=== PATIENT | female | born 1940 | race African-American/Black ===

== ENCOUNTER 2020-01-12 13:23 | Inpatient (IN) | payer MEDICARE, OTHER ==
[~2020-01-12] VITALS: Ht 167.6 cm; Wt 55.8 kg
[2020-01-12 13:25] VITALS: BP 180/100
--- NOTE | 2020-01-12 13:25 | NUR ---
ED Nurse Note: Pt brought in from independent living facility by [facility] due to ALOC. Per EMS, pt was found by her provider relations manager sitting down on the floor with her back resting on a chair.
--- NOTE | 2020-01-12 13:40 | NUR ---
ED Nurse Note: PT blood sample sent to [facility]
--- NOTE | 2020-01-12 13:50 | NUR ---
ED Nurse Note: pt taken to CT
[2020-01-12 14:00] LABS: HEMATOCRIT 37.6 % (37.0-47.0); HEMOGLOBIN 13.2 G/DL (12.0-16.0); MEAN CORPUSCULAR VOLUME 92 FL (80-99); PLATELET COUNT 171 K/UL (150-450); RED BLOOD COUNT 4.08 M/UL (4.20-5.40); RED CELL DISTRIBUTION WIDTH 13.9 % (11.6-14.8); WHITE BLOOD COUNT 9.3 K/UL (4.8-10.8)
--- NOTE | 2020-01-12 14:01 | NUR ---
ED Nurse Note: back from ct
--- NOTE | 2020-01-12 14:07 | Diagnostic Imaging Report ---
EXAM: XR Chest, 1 View CLINICAL HISTORY: PAIN TECHNIQUE: Frontal view of the chest. COMPARISON: No relevant prior studies available. FINDINGS: Lungs: Unremarkable. No consolidation. Pleural space: Unremarkable. No pneumothorax. Heart: Unremarkable. No cardiomegaly. Mediastinum: Calcified and tortuous aorta. Bones/joints: Osteopenia. Degenerative changes. High riding humeral head suggesting rotator cuff tears. IMPRESSION: No evidence of acute pulmonary disease. High riding humeral heads with remodeling. Suspect rotator cuff tears.
[2020-01-12 14:11] LABS: ANION GAP 16 mmol/L (5-15); BLOOD UREA NITROGEN 33 mg/dL (7-18); CALCIUM 10.1 MG/DL (8.5-10.1); CARBON DIOXIDE 25 MMOL/L (21-32); CHLORIDE 101 MMOL/L (98-107); CREATININE 1.5 MG/DL (0.55-1.30); SODIUM 142 MMOL/L (136-145)
--- NOTE | 2020-01-12 14:13 | Diagnostic Imaging Report ---
EXAM: CT Head Without Intravenous Contrast CLINICAL HISTORY: ALOC TECHNIQUE: Axial computed tomography images of the head/brain without intravenous contrast. CTDI is 53.4 mGy and DLP is 992.1 mGy-cm. One or more of the following dose reduction techniques were used: automated exposure control, adjustment of the mA and/or kV according to patient size, use of iterative reconstruction technique. COMPARISON: No relevant prior studies available. FINDINGS: No acute intracranial hemorrhage. Chronic dural thickening and calcification along the left cerebral convexity adjacent to a craniotomy defect. This type of thickening/scarring is common in the postoperative setting. No significant mass effect. No clear acute large vessel territory infarct. There is diffuse atrophy and microvascular ischemic change. Atherosclerosis of skull base arteries. Right ocular lens prosthesis. No acute fracture. IMPRESSION: No acute intracranial process. Left craniotomy with subjacent dural thickening and calcification, a frequently encountered postoperative finding. No significant mass effect. Diffuse atrophy and microvascular ischemic changes.
[2020-01-12 14:37] LABS: ALANINE AMINOTRANSFERASE 15 U/L (12-78); ALBUMIN 3.8 G/DL (3.4-5.0); ALBUMIN/GLOBULIN RATIO 0.7 (1.0-2.7); ALKALINE PHOSPHATASE 73 U/L (46-116); ASPARTATE AMINO TRANSFERASE 24 U/L (15-37); BILIRUBIN,TOTAL 1.2 MG/DL (0.2-1.0); CKMB 1.4 NG/ML (0.0-3.6); CREATINE KINASE 344 U/L (26-308)
[2020-01-12 14:38] LABS: BILIRUBIN,DIRECT 0.4 MG/DL (0.0-0.3)
[2020-01-12] MEDS ORDERED: Omnipaque 350 100ml vial INJ PRN (14:45)
[2020-01-12] MEDS ORDERED: LISINOPRIL20 MG ORAL (15:27)
[2020-01-12 15:44] LABS: APPEARANCE,URINE SLIGHTLY CLOUDY; BILIRUBIN, URINE NEGATIVE (NEGATIVE); COLOR,URINE AMBER; GLUCOSE, URINE (UA) NEGATIVE (NEGATIVE); KETONES,URINE 1+ (NEGATIVE); LEUKOCYTE ESTERASE ,URINE 3+ (NEGATIVE); NITRITE,URINE NEGATIVE (NEGATIVE); PH,URINE 5 (4.5-8.0); PROTEIN,URINE 3+ (NEGATIVE); UROBILINOGEN,URINE NORMAL MG/DL (0.0-1.0)
[2020-01-12] MEDS ORDERED: Enoxaparin 80mg Inj SUBQ ONE (15:45)
--- NOTE | 2020-01-12 15:53 | Diagnostic Imaging Report ---
EXAM: CT Chest Without Intravenous Contrast CLINICAL HISTORY: SOB TECHNIQUE: Axial computed tomography images of the chest without intravenous contrast. CTDI is 4.1 mGy and DLP is 131.2 mGy-cm. One or more of the following dose reduction techniques were used: automated exposure control, adjustment of the mA and/or kV according to patient size, use of iterative reconstruction technique. COMPARISON: No relevant prior studies available. FINDINGS: Centrilobular emphysema, most pronounced to the upper lobes. Mild basilar scarring and/or subsegmental atelectasis. Extensive aortic and coronary atherosclerosis. Trace pericardial fluid of doubtful clinical relevance. No significant pleural effusion. No pneumothorax. Upper abdomen demonstrates a 3.3 cm left lobe hepatic cyst. Spleen appears enlarged, but is not fully assessed. No definite splenic lesion on noncontrast study. Renal atrophy. Advanced degeneration and remodeling of the glenohumeral joints. Suspected rotator cuff pathology. Thoracic kyphosis. No acute fracture. IMPRESSION: Emphysema. No acute pulmonary infiltrate. Extensive aortic and coronary atherosclerosis. Incidental findings as above.
[2020-01-12] MEDS ORDERED: cefTRIAXone 1 GM in NS 55 ML IVPB ONE (16:00)
--- NOTE | 2020-01-12 16:01 | Emergency Room Report ---
History of Present Illness General Chief Complaint: Altered Level of Consciousness Present Illness HPI 79-year-old female with possible history of CHF and AK I brought in by paramedics from an assisted living due to altered level of consciousness. According to [facility] report patient was found sitting down leaning against the wall and being altered. Does not present with a summary report of medication and past medical illnesses. Unknown baseline for her dementia. Patient appears to be stable with stable vital signs. Afebrile and oxygenation within normal limit. No cough noted. Patient is a poor historian however reports that at times she has been short of breath. Patient elicits a lot of pain to gentle palpation of bilateral lower extremities. Bilateral lower extremities appear to be chronically tightened possible chronic DVT. Denies abdominal pain , nausea vomiting diarrhea. Patient is neurovascularly intact. No generalized or unilateral weakness noted. Patient speaking full sentences and no slurred speech noted. Head appears to be atraumatic (Raffaele Rajan) Allergies: Coded Allergies: PENICILLINS (Verified Allergy, Unknown, 01/12/20) COVID-19 Screening Contact w/high risk pt: No Recent Travel to affected area: No Experienced COVID-19 symptoms?: No (Raffaele Rajan) Patient History Past Medical History: see triage record Past Surgical History: unable to obtain Pertinent Family History: unable to obtain Immunizations: UTD Reviewed Nursing Documentation: PMH: Agreed; PSxH: Agreed (Raffaele Rajan) Review of Systems All Other Systems: negative except mentioned in HPI (Raffaele Rajan) Physical Exam Vital Signs Date Time Temp Pulse Resp B/P (MAP) Pulse Ox O2 Delivery O2 Flow Rate FiO2 01/12/20 13:17 98.4 104 16 184/95 (124) 100 Room Air Sp02 EP Interpretation: reviewed, normal General Appearance: mild distress Head: normocephalic, atraumatic Eyes: bilateral eye normal inspection, bilateral eye PERRL ENT: hearing grossly normal, normal pharynx, no angioedema, normal voice Neck: supple Respiratory: chest non-tender, lungs clear, normal breath sounds, no rhonchi, no wheezing, speaking full sentences Cardiovascular #1: normal inspection, no murmur Cardiovascular #2: 2+ dorsalis pedis (R), 2+ dorsalis pedis (L) Gastrointestinal: normal bowel sounds, non tender, soft, non-distended, no guarding, no rebound Genitourinary: no CVA tenderness Musculoskeletal: back normal, calf tenderness Neurologic: alert, motor strength/tone normal, oriented x3, sensory intact, responsive, speech normal Psychiatric: judgement/insight normal, memory normal, mood/affect normal, no suicidal/homicidal ideation Skin: no rash Lymphatic: no adenopathy (Raffaele Rajan) Medical Decision Making PA Attestation All diagnoses and treatment plans were reviewed and discussed with my supervising physician Dr. Felton (Raffaele Rajan) PA Attestation I participated in the care of this patient along with JANAK Medina Briefly, this an 79-year-old female arrives from her assisted living facility, [facility], by EMS for altered mental status. She was reportedly found slumped over and confused. She is complaining of shortness of breath but no cough. She is a very poor historian and remains confused though baseline is unknown. Not able to obtain any collateral information from living facility, family or patient. Lower extremities are tender and edematous concerning for possible DVT in the setting of an elevated dimer. She was treated with Lovenox. DVT Doppler studies are pending. Unable to perform CTA at this time due to mechanical issues with CT scanner. Noncontrast CT scan of the chest does not show obvious infiltrates. Will swab for COVID-19 given her care home status and complaint of dyspnea. Labs show a slight elevation in lactic acid, elevation in creatinine and BUN consistent with dehydration and acute kidney injury. BN peptide elevated, troponin within normal limits. Urinalysis consistent with a urinary tract infection. Antibiotics ordered. Patient requires admission and will be admitted to panel physician on telemetry isolation. (Carlos Felton MD) Diagnostic Impression: Primary Impression: Altered level of consciousness Additional Impression: COVID-19 ruled out ER Course 79-year-old female with possible history of CHF and AK I brought in by paramedics from an assisted living due to altered level of consciousness. According to [facility] report patient was found sitting down leaning against the wall and being altered. Does not present with a summary report of medication and past medical illnesses. Unknown baseline for her dementia. Patient appears to be stable with stable vital signs. Afebrile and oxygenation within normal limit. No cough noted. Patient is a poor historian however reports that at times she has been short of breath. Patient elicits a lot of pain to gentle palpation of bilateral lower extremities. Bilateral lower extremities appear to be chronically tightened possible chronic DVT. Denies abdominal pain , nausea vomiting diarrhea. Patient is neurovascularly intact. No generalized or unilateral weakness noted. Patient speaking full sentences and no slurred speech noted. Head appears to be atraumatic Ddx considered but are not limited to: CVA, TIA, pulmonary embolism leading to stroke, altered level of consciousness PE Vital signs: are WNL, pt. is afebrile H&PE are most consistent with: Altered level of consciousness, COVID rule out ORDERS: Head CT no contrast this order set ER intervention: Ceftriaxone, NS bolus Patient was admitted with diagnosis of altered level of consciousness, COVID ruled out to Dr. Weber under supervision of : Purnima pt stable at time of admission (Raffaele Rajan) EKG Diagnostic Results Rate: normal Rhythm: NSR ST Segments: no acute changes Other Impression No acute ST changes (Raffaele Rajan) Chest X-Ray Diagnostic Results Chest X-Ray Diagnostic Results : Chest X-Ray Ordered: Yes # of Views/Limited/Complete: 1 View Indication: Shortness of Breath EP Interpretation: Yes PA Xray: Interpretation reviewed, by supervising MD, and agrees with findings. Interpretation: no consolidation, no effusion, no pneumothorax Impression: No acute disease Electronically Signed by: Raffaele Devine PA-C (Raffaele Rajan) CT/MRI/US Diagnostic Results CT/MRI/US Diagnostic Results #1: Imaging Test Ordered: CT chest non cont Impression FINDINGS: Centrilobular emphysema, most pronounced to the upper lobes. Mild basilar scarring and/or subsegmental atelectasis. Extensive aortic and coronary atherosclerosis. Trace pericardial fluid of doubtful clinical relevance. No significant pleural effusion. No pneumothorax. Upper abdomen demonstrates a 3.3 cm left lobe hepatic cyst. Spleen appears enlarged, but is not fully assessed. No definite splenic lesion on noncontrast study. Renal atrophy. Advanced degeneration and remodeling of the glenohumeral joints. Suspected rotator cuff pathology. Thoracic kyphosis. No acute fracture. IMPRESSION: Emphysema. No acute pulmonary infiltrate. Extensive aortic and coronary atherosclerosis. Incidental findings as above. CT/MRI/US Diagnostic Results #2: Imaging Test Ordered: CT head no contrast Impression FINDINGS: No acute intracranial hemorrhage. Chronic dural thickening and calcification along the left cerebral convexity adjacent to a craniotomy defect. This type of thickening/scarring is common in the postoperative setting. No significant mass effect. No clear acute large vessel territory infarct. There is diffuse atrophy and microvascular ischemic change. Atherosclerosis of skull base arteries. Right ocular lens prosthesis. No acute fracture. IMPRESSION: No acute intracranial process. Left craniotomy with subjacent dural thickening and calcification, a frequently encountered postoperative finding. No significant mass effect. Diffuse atrophy and microvascular ischemic changes. CT/MRI/US Diagnostic Results #3: Imaging Test Ordered: Bilateral venous duplex ultrasound Impression No DVT (Raffaele Rajan) Last Vital Signs Date Time Temp Pulse Resp B/P (MAP) Pulse Ox O2 Delivery O2 Flow Rate FiO2 01/12/20 13:25 97 18 Room Air 01/12/20 13:25 98.4 180/100 98 (Raffaele Rajan) Disposition: ADMITTED INPATIENT Condition: Stable Referrals: NOT CHOSEN IPA/,REFERRING (PCP) Raffaele Rajan January 12, 2020 16:01 Carlos Felton MD January 12, 2020 16:04
--- NOTE | 2020-01-12 16:24 | NUR ---
ED Nurse Note: [facility] called [facility] for patient past medical hx, medication list, insurance, etc. No answer from facility, voicemail left.
[2020-01-12 16:36] VITALS: BP 162/97
--- NOTE | 2020-01-12 17:59 | Diagnostic Imaging Report ---
EXAM: US Duplex Bilateral Lower Extremities Veins CLINICAL HISTORY: DVT TECHNIQUE: Real-time duplex ultrasound scan of the bilateral lower extremity veins integrating B-mode two-dimensional vascular structure, Doppler spectral analysis, color flow Doppler imaging and compression. COMPARISON: No relevant prior studies available. FINDINGS: Right deep veins: Unremarkable. No DVT in the right common femoral, femoral, proximal deep femoral or popliteal veins. The veins demonstrate normal color flow, are normally compressible, with normal phasic flow and/or augmentation response. Right superficial veins: Unremarkable. No thrombus in the visualized right great saphenous vein. Left deep veins: Unremarkable. No DVT in the left common femoral, femoral, proximal deep femoral veins. Left popliteal vein, not visualized due to patient inability to bend legs and generalized immobility. The veins demonstrate normal color flow, are normally compressible, with normal phasic flow and/or augmentation response. Left superficial veins: Unremarkable. No thrombus in the visualized left great saphenous vein. IMPRESSION: No DVT. Left popliteal vein could not be assessed due to patient immobility.
--- NOTE | 2020-01-12 18:30 | NUR ---
ED Nurse Note: Reflex lactic sent.
--- NOTE | 2020-01-12 18:40 | NUR ---
Pt transferred to tele floor on monitor with all belongings. Received by MEHRDAD Mensah.
--- NOTE | 2020-01-12 19:09 | NUR ---
NURSE NOTES: Received Pt from ER. received report from MEHRDAD Douglass. Pt awake alert to name only. Placed on library monitor and found to be ST at 106 consisted with ER EKG. RT FA 20 IV. Skin assessed and found to be intact. Fall Risk. Yellow socks and gown given. COVID isolation initiated. Belongings checked and with patient. Side rails upx2, call light within reach, bed low and locked. Will continue to monitor. Addendum: 01/12/20 at 1918 by Makenna Lynn RN Bed alarm on
--- NOTE | 2020-01-12 19:15 | NUR ---
NURSE NOTES: Received pt and report from MEHRDAD Chandler. Observed pt resting in bed with both eyes closed; arousable to voice. Pt is A/Ox1. security monitor is in placed; pt is ST (108 bpm). IV site intact, asymptomatic and patent. Bed is in the lowest position and locked. Call light and bedside table is within reach. No signs/symptoms of acute distress noted at this time. Will contact Dr. Weber for admission orders.
--- NOTE | 2020-01-12 19:25 | NUR ---
HAND-OFF: Report given to MEHRDAD Sosa. Pt stable.Endorsed plan of care..
[2020-01-12 20:00] VITALS: BP 142/79
--- NOTE | 2020-01-12 20:42 | NUR ---
NURSE NOTES: Received admission orders from Dr. Weber. Will note and carry out.
[2020-01-12] MEDS ORDERED: Albuterol/Ipratropium 3ml neb HHN PRN (21:00)
[2020-01-12] MEDS ORDERED: Enoxaparin 80mg Inj SUBQ SCH (21:00)
--- NOTE | 2020-01-12 21:28 | Consultation ---
History of Present Illness General Date patient seen: January 12, 2020 Time patient seen: 16:55 Chief Complaint: Altered Level of Consciousness Referring physician: Dr. flaquita Whiteside Reason for Consultation: Urine tract infection Present Illness HPI This is an 79-year-old female with past medical history of CHF, and renal failure was brought into [facility] emergency room via paramedics from her assisted living for alteration in her mental status as per report from the facility patient was found sitting down on the floor leaning against the wall and confused unclear for how long she has been like that patient was afebrile with good oxygen saturation upon arrival to the emergency room with no cough or shortness of breath but complained of lower extremity pain. Patient was satting 100% on room air and had a temperature of 98.4 in the ER she had extensive work-up including chest x-ray which showed no acute infiltration she also had a CT scan of the chest showed emphysema with no evidence of pneumonia her lab work showed evidence of urine tract infection so infectious disease consultation was requested for antibiotics treatment and further management . Allergies: Coded Allergies: PENICILLINS (Verified Allergy, Unknown, 01/12/20) Medication History Scheduled Lisinopril (Lisinopril*), Unknown Dose ORAL DAILY, (Reported) Patient History Limited by: medical condition, other - Confusion and altered mental status History Provided By: Medical Record, EMS Healthcare decision maker Resuscitation status Advanced Directive on File Review of Systems Constitutional: Reports: no symptoms Eye: Reports: no symptoms ENT: Reports: no symptoms Respiratory: Reports: no symptoms Cardiovascular: Reports: no symptoms Gastrointestinal: Reports: no symptoms Genitourinary: Reports: no symptoms Musculoskeletal: Reports: muscle pain Skin: Reports: no symptoms Psychiatric: Reports: anxiety Neurological: Reports: other - Lethargy and confusion Endocrine: Reports: no symptoms Hematologic/Lymphatic: Reports: no symptoms Physical Exam General Appearance: WD/WN, no apparent distress, alert, lethargic, confused, cachetic Lines, tubes and drains: peripheral HEENT: normocephalic, atraumatic, anicteric, mucous membranes moist, PERRL Neck: non-tender, normal alignment, supple, normal inspection Respiratory/Chest: chest wall non-tender, lungs clear, normal breath sounds, no respiratory distress, no accessory muscle use Cardiovascular/Chest: normal peripheral pulses, normal rate, regular rhythm, no gallop/murmur, no JVD Abdomen: normal bowel sounds, non tender, soft, no organomegaly, no mass Genitourinary/Rectal: normal genital exam Extremities: normal range of motion, non-tender, normal inspection, no edema, no cyanosis, calf tenderness Skin Exam: normal pigmentation, warm/dry Neurologic: alert, responsive Last 24 Hour Vital Signs Date Time Temp Pulse Resp B/P (MAP) Pulse Ox O2 Delivery O2 Flow Rate FiO2 01/12/20 18:40 87 18 143/87 99 Room Air 01/12/20 16:36 98.4 82 17 162/97 99 Room Air 01/12/20 13:25 97 18 Room Air 01/12/20 13:25 98.4 97 18 180/100 98 Room Air 01/12/20 13:17 98.4 104 16 184/95 (124) 100 Room Air Laboratory Tests Test 01/12/20 13:40 01/12/20 14:35 01/12/20 18:20 White Blood Count 9.3 K/UL (4.8-10.8) Red Blood Count 4.08 M/UL (4.20-5.40) L Hemoglobin 13.2 G/DL (12.0-16.0) Hematocrit 37.6 % (37.0-47.0) Mean Corpuscular Volume 92 FL (80-99) Mean Corpuscular Hemoglobin 32.4 PG (27.0-31.0) H Mean Corpuscular Hemoglobin Concent 35.1 G/DL (32.0-36.0) Red Cell Distribution Width 13.9 % (11.6-14.8) Platelet Count 171 K/UL (150-450) Mean Platelet Volume 6.3 FL (6.5-10.1) L Neutrophils (%) (Auto) % (45.0-75.0) Lymphocytes (%) (Auto) % (20.0-45.0) Monocytes (%) (Auto) % (1.0-10.0) Eosinophils (%) (Auto) % (0.0-3.0) Basophils (%) (Auto) % (0.0-2.0) Differential Total Cells Counted 100 Neutrophils % (Manual) 82 % (45-75) H Lymphocytes % (Manual) 7 % (20-45) L Monocytes % (Manual) 10 % (1-10) Eosinophils % (Manual) 0 % (0-3) Basophils % (Manual) 0 % (0-2) Band Neutrophils 1 % (0-8) Platelet Estimate Adequate Platelet Morphology Normal Red Blood Cell Morphology Normal Prothrombin Time 10.8 SEC (9.30-11.50) Prothromb Time International Ratio 1.0 (0.9-1.1) Activated Partial Thromboplast Time 37 SEC (23-33) H D-Dimer 5.04 mg/L FEU (0.00-0.49) H Sodium Level 142 MMOL/L (136-145) Potassium Level 4.0 MMOL/L (3.5-5.1) Chloride Level 101 MMOL/L (98-107) Carbon Dioxide Level 25 MMOL/L (21-32) Anion Gap 16 mmol/L (5-15) H Blood Urea Nitrogen 33 mg/dL (7-18) H Creatinine 1.5 MG/DL (0.55-1.30) H Estimat Glomerular Filtration Rate 33.4 mL/min (>60) Glucose Level 131 MG/DL (74-106) H Lactic Acid Level 2.10 mmol/L (0.4-2.0) H 2.30 mmol/L (0.66-2.22) H Calcium Level 10.1 MG/DL (8.5-10.1) Ferritin 887 NG/ML (8-388) H Total Bilirubin 1.2 MG/DL (0.2-1.0) H Direct Bilirubin 0.4 MG/DL (0.0-0.3) H Aspartate Amino Transf (AST/SGOT) 24 U/L (15-37) Alanine Aminotransferase (ALT/SGPT) 15 U/L (12-78) Alkaline Phosphatase 73 U/L (46-116) Lactate Dehydrogenase 486 U/L (81-234) H Total Creatine Kinase 344 U/L (26-308) H Creatine Kinase MB 1.4 NG/ML (0.0-3.6) Creatine Kinase MB Relative Index 0.4 Troponin I 0.004 ng/mL (0.000-0.056) C-Reactive Protein, Quantitative 25.4 mg/dL (0.00-0.90) H Pro-B-Type Natriuretic Peptide 1982 pg/mL (0-125) H Total Protein 9.0 G/DL (6.4-8.2) H Albumin 3.8 G/DL (3.4-5.0) Globulin 5.2 g/dL Albumin/Globulin Ratio 0.7 (1.0-2.7) L Urine Color Arlyn Urine Appearance Slightly cloudy Urine pH 5 (4.5-8.0) Urine Specific Bradshaw 1.020 (1.005-1.035) Urine Protein 3+ (NEGATIVE) H Urine Glucose (UA) Negative (NEGATIVE) Urine Ketones 1+ (NEGATIVE) H Urine Blood 5+ (NEGATIVE) H Urine Nitrite Negative (NEGATIVE) Urine Bilirubin Negative (NEGATIVE) Urine Ictotest Negative (NEGATIVE) Urine Urobilinogen Normal MG/DL (0.0-1.0) Urine Leukocyte Esterase 3+ (NEGATIVE) H Urine RBC 15-20 /HPF (0 - 2) H Urine WBC Tntc /HPF (0 - 2) H Urine Squamous Epithelial Cells Moderate /LPF (NONE/OCC) H Urine Bacteria Many /HPF (NONE) H Microbiology Date/Time Source Procedure Growth Status 01/12/20 17:50 Rectum Received Height (Feet): 5 Height (Inches): 6.00 Weight (Pounds): 140 Medications Current Medications Medications (Trade) Dose Ordered Sig/Paula Route PRN Reason Start Time Stop Time Status Last Admin Dose Admin Acetaminophen (Tylenol) 650 mg Q6H PRN ORAL Fever >100.5/mild pain 01/12/20 21:00 02/11/20 20:59 Albuterol/ Ipratropium (Albuterol/ Ipratropium) 3 ml Q4H PRN HHN Shortness of Breath 01/12/20 21:00 01/17/20 20:59 Azithromycin 500 mg/Dextrose 275 ml @ 275 mls/hr BID IVPB 01/13/20 09:00 01/18/20 08:59 UNV Cefepime HCl 1 gm/ Dextrose 55 ml @ 110 mls/hr Q24H IVPB 01/13/20 09:00 01/20/20 08:59 Clonidine HCl (Catapres Tab) 0.1 mg Q4H PRN ORAL For High Blood Pressure 01/12/20 21:00 04/11/20 20:59 Enoxaparin Sodium (Lovenox) 80 mg EVERY 12 HOURS SUBQ 01/12/20 21:00 04/11/20 20:59 UNV Iohexol (Omnipaque 350 100ml) 100 ml NOW PRN INJ Radiology Procedure 01/12/20 14:45 01/14/20 14:39 Ondansetron HCl (Zofran) 4 mg Q6H PRN IVP Nausea & Vomiting 01/12/20 21:00 02/11/20 20:59 Pantoprazole (Protonix) 40 mg ACBREAKFAST ORAL 01/13/20 06:30 02/12/20 06:29 Assessment/Plan Problem List: (1) UTI (urinary tract infection) Assessment & Plan: Start cefepime empirically pending urine culture ICD Codes: N39.0 - Urinary tract infection, site not specified SNOMED: 32042319 (2) Altered level of consciousness Assessment & Plan: Could be due to UTI continue supportive care and antibiotics pending cultures ICD Codes: R40.4 - Transient alteration of awareness SNOMED: 0951553, 050094430 (3) COVID-19 ruled out Assessment & Plan: Keep an enhanced droplet isolation pending PCR test result, obtain LDH, C-reactive protein, and ferritin level ICD Codes: Z03.818 - Encounter for observation for suspected exposure to other biological agents ruled out SNOMED: 633745439, 046459117 (4) Sepsis Assessment & Plan: suspect due to the above mainly urine infection or pyelonephritis already on cefepime empiric coverage pending blood culture results ICD Codes: A41.9 - Sepsis, unspecified organism SNOMED: 68857915 Qualifiers: Status: stable Kieran Franco M.D. January 12, 2020 21:28
[2020-01-13] VITALS: BP 140/83
[2020-01-13 04:00] VITALS: BP 133/74
--- NOTE | 2020-01-13 07:47 | Consultation ---
Consult Note Consult Note I was asked to evaluate the patient at the request of Dr. Weber for renal failure Patient poor historian Emergency room note: 79-year-old female with possible history of CHF and AK I brought in by paramedics from an assisted living due to altered level of consciousness. According to [facility] report patient was found sitting down leaning against the wall and being altered. Does not present with a summary report of medication and past medical illnesses. Unknown baseline for her dementia. Patient appears to be stable with stable vital signs. Afebrile and oxygenation within normal limit. No cough noted. Patient is a poor historian however reports that at times she has been short of breath. Patient elicits a lot of pain to gentle palpation of bilateral lower extremities. Bilateral lower extremities appear to be chronically tightened possible chronic DVT. Denies abdominal pain , nausea vomiting diarrhea. Patient is neurovascularly intact. No generalized or unilateral weakness noted. Patient speaking full sentences and no slurred speech noted. Head appears to be atraumatic Allergies: PENICILLINS (Verified Allergy, Unknown, 01/12/20) COVID-19 Screening Contact w/high risk pt: No Recent Travel to affected area: No Experienced COVID-19 symptoms?: No Patient examined Records data reviewed Assessment/Plan Elevated BUN/creatinine most likely dehydration UTI Encephalopathy which most likely toxic metabolic Rule out COVID 19 infection, Patient has elevated ferritin and LDH and lactate Suggestion: Hydrate Monitor renal parameters Per ID advice Per orders Denis Begum MD January 13, 2020 07:47
[2020-01-13] MEDS ORDERED: HydrALAZINE 25mg tab ORAL PRN (07:55)
--- NOTE | 2020-01-13 07:58 | NUR ---
NURSE NOTES: Received report from MEHRDAD Sosa. Patient in bed resting, no active s/s cardiac, respiratory distress noticed at this time. Patient AOx2-3 on room air. IV on right FA 20G, asymptomatic, patent, intact. Bed in lowest position, side rails upx2, call light within reach, bed alarm on. Will continue to monitor.
[2020-01-13 08:00] VITALS: BP 140/78
--- NOTE | 2020-01-13 08:07 | NUR ---
NURSE NOTES: Dr. Weber made aware of 10 beats of SVT. No new order received at this time. Will continue to follow up.
--- NOTE | 2020-01-13 08:22 | NUR ---
NURSE NOTES: Per Dr. Tia MD consult with Dr. Cortes. Paged Dr. Cortes regarding 10 beats of SVT, no new order received at this time. Will continue to follow up.
[2020-01-13] MEDS: Aspirin Baby 81mg ORAL SCH (08:39)
[2020-01-13] MEDS: Cefepime HCl 1 GM in D5W 55 ML IVPB SCH (08:39)
[2020-01-13] MEDS: Docusate 100mg cap ORAL SCH ×3 (08:39→17:54)
[2020-01-13] MEDS: Azithromycin 500 MG in D5W 275 ML IV SCH (08:39)
[2020-01-13] MEDS: Enoxaparin 30mg Inj SUBQ SCH (08:40)
[2020-01-13 08:58] LABS: BASOPHILS % (AUTO) 0.2 % (0.0-2.0); HEMOGLOBIN 11.4 G/DL (12.0-16.0); LYMPHOCYTES % (AUTO) 5.1 % (20.0-45.0); MEAN CORPUSCULAR VOLUME 93 FL (80-99); MONOCYTES % (AUTO) 11.9 % (1.0-10.0); NEUTROPHILS % (AUTO) 82.7 % (45.0-75.0); PLATELET COUNT 137 K/UL (150-450); RED BLOOD COUNT 3.57 M/UL (4.20-5.40); RED CELL DISTRIBUTION WIDTH 14.2 % (11.6-14.8); WHITE BLOOD COUNT 7.4 K/UL (4.8-10.8)
[2020-01-13] MEDS ORDERED: Azithromycin 500 MG in D5W 275 ML IVPB SCH (09:00)
[2020-01-13] MEDS ORDERED: Enoxaparin 80mg Inj SUBQ SCH (09:00)
[2020-01-13] MEDS ORDERED: cefTRIAXone 1 GM in D5W 55 ML IVPB SCH (09:00)
--- NOTE | 2020-01-13 09:35 | Cardiology Progress Note ---
Assessment/Plan Assessment/Plan The patient is seen and examined, full consult note is dictated. Objective Last 24 Hour Vital Signs Date Time Temp Pulse Resp B/P (MAP) Pulse Ox O2 Delivery O2 Flow Rate FiO2 01/13/20 04:00 75 01/13/20 04:00 97.7 80 18 133/74 (93) 95 01/13/20 00:00 96.8 81 18 140/83 (102) 95 01/13/20 00:00 86 01/12/20 20:14 Room Air 01/12/20 20:00 110 01/12/20 20:00 98.0 87 17 142/79 (100) 96 01/12/20 18:40 87 18 143/87 99 Room Air 01/12/20 16:36 98.4 82 17 162/97 99 Room Air 01/12/20 13:25 97 18 Room Air 01/12/20 13:25 98.4 97 18 180/100 98 Room Air 01/12/20 13:17 98.4 104 16 184/95 (124) 100 Room Air Intake and Output 01/12/20 01/13/20 19:00 07:00 Intake Total 0 ml Balance 0 ml Intake Oral 0 ml # Voids 1 Laboratory Tests Test 01/12/20 13:40 01/12/20 14:35 01/12/20 18:20 01/13/20 08:15 White Blood Count 9.3 K/UL (4.8-10.8) 7.4 K/UL (4.8-10.8) Red Blood Count 4.08 M/UL (4.20-5.40) L 3.57 M/UL (4.20-5.40) L Hemoglobin 13.2 G/DL (12.0-16.0) 11.4 G/DL (12.0-16.0) L Hematocrit 37.6 % (37.0-47.0) 33.0 % (37.0-47.0) L Mean Corpuscular Volume 92 FL (80-99) 93 FL (80-99) Mean Corpuscular Hemoglobin 32.4 PG (27.0-31.0) H 32.0 PG (27.0-31.0) H Mean Corpuscular Hemoglobin Concent 35.1 G/DL (32.0-36.0) 34.6 G/DL (32.0-36.0) Red Cell Distribution Width 13.9 % (11.6-14.8) 14.2 % (11.6-14.8) Platelet Count 171 K/UL (150-450) 137 K/UL (150-450) L Mean Platelet Volume 6.3 FL (6.5-10.1) L 6.2 FL (6.5-10.1) L Neutrophils (%) (Auto) % (45.0-75.0) 82.7 % (45.0-75.0) H Lymphocytes (%) (Auto) % (20.0-45.0) 5.1 % (20.0-45.0) L Monocytes (%) (Auto) % (1.0-10.0) 11.9 % (1.0-10.0) H Eosinophils (%) (Auto) % (0.0-3.0) 0.0 % (0.0-3.0) Basophils (%) (Auto) % (0.0-2.0) 0.2 % (0.0-2.0) Differential Total Cells Counted 100 Neutrophils % (Manual) 82 % (45-75) H Lymphocytes % (Manual) 7 % (20-45) L Monocytes % (Manual) 10 % (1-10) Eosinophils % (Manual) 0 % (0-3) Basophils % (Manual) 0 % (0-2) Band Neutrophils 1 % (0-8) Platelet Estimate Adequate Platelet Morphology Normal Red Blood Cell Morphology Normal Prothrombin Time 10.8 SEC (9.30-11.50) Prothromb Time International Ratio 1.0 (0.9-1.1) Activated Partial Thromboplast Time 37 SEC (23-33) H D-Dimer 5.04 mg/L FEU (0.00-0.49) H Sodium Level 142 MMOL/L (136-145) Pending Potassium Level 4.0 MMOL/L (3.5-5.1) Pending Chloride Level 101 MMOL/L (98-107) Pending Carbon Dioxide Level 25 MMOL/L (21-32) Pending Anion Gap 16 mmol/L (5-15) H Blood Urea Nitrogen 33 mg/dL (7-18) H Pending Creatinine 1.5 MG/DL (0.55-1.30) H Pending Estimat Glomerular Filtration Rate 33.4 mL/min (>60) Pending Glucose Level 131 MG/DL (74-106) H Pending Lactic Acid Level 2.10 mmol/L (0.4-2.0) H 2.30 mmol/L (0.66-2.22) H Calcium Level 10.1 MG/DL (8.5-10.1) Pending Ferritin 887 NG/ML (8-388) H Total Bilirubin 1.2 MG/DL (0.2-1.0) H Pending Direct Bilirubin 0.4 MG/DL (0.0-0.3) H Aspartate Amino Transf (AST/SGOT) 24 U/L (15-37) Pending Alanine Aminotransferase (ALT/SGPT) 15 U/L (12-78) Pending Alkaline Phosphatase 73 U/L (46-116) Pending Lactate Dehydrogenase 486 U/L (81-234) H Total Creatine Kinase 344 U/L (26-308) H Pending Creatine Kinase MB 1.4 NG/ML (0.0-3.6) Creatine Kinase MB Relative Index 0.4 Troponin I 0.004 ng/mL (0.000-0.056) Pending C-Reactive Protein, Quantitative 25.4 mg/dL (0.00-0.90) H Pending Pro-B-Type Natriuretic Peptide 1982 pg/mL (0-125) H Pending Total Protein 9.0 G/DL (6.4-8.2) H Pending Albumin 3.8 G/DL (3.4-5.0) Pending Globulin 5.2 g/dL Pending Albumin/Globulin Ratio 0.7 (1.0-2.7) L Urine Color Arlyn Urine Appearance Slightly cloudy Urine pH 5 (4.5-8.0) Urine Specific [place] 1.020 (1.005-1.035) Urine Protein 3+ (NEGATIVE) H Urine Glucose (UA) Negative (NEGATIVE) Urine Ketones 1+ (NEGATIVE) H Urine Blood 5+ (NEGATIVE) H Urine Nitrite Negative (NEGATIVE) Urine Bilirubin Negative (NEGATIVE) Urine Ictotest Negative (NEGATIVE) Urine Urobilinogen Normal MG/DL (0.0-1.0) Urine Leukocyte Esterase 3+ (NEGATIVE) H Urine RBC 15-20 /HPF (0 - 2) H Urine WBC Tntc /HPF (0 - 2) H Urine Squamous Epithelial Cells Moderate /LPF (NONE/OCC) H Urine Bacteria Many /HPF (NONE) H Hemoglobin A1c Pending Uric Acid Pending Phosphorus Level Pending Magnesium Level Pending Gamma Glutamyl Transpeptidase Pending Triglycerides Level Pending Cholesterol Level Pending LDL Cholesterol Pending HDL Cholesterol Pending Cholesterol/HDL Ratio Pending Vitamin B12 Level Pending Folate Pending Thyroid Stimulating Hormone (TSH) Pending Microbiology Date/Time Source Procedure Growth Status 01/12/20 14:35 Urine,Clean Catch Urine Culture - Preliminary Gram Negative Bacillus 1 Resulted 01/12/20 17:50 Rectum Received Thuan Cortes MD January 13, 2020 09:35
[2020-01-13 09:49] LABS: ALANINE AMINOTRANSFERASE 17 U/L (12-78); ALBUMIN 2.9 G/DL (3.4-5.0); ALBUMIN/GLOBULIN RATIO 0.6 (1.0-2.7); ALKALINE PHOSPHATASE 68 U/L (46-116); ANION GAP 12 mmol/L (5-15); ASPARTATE AMINO TRANSFERASE 35 U/L (15-37); BILIRUBIN,TOTAL 0.7 MG/DL (0.2-1.0); BLOOD UREA NITROGEN 37 mg/dL (7-18); CALCIUM 9.2 MG/DL (8.5-10.1); CARBON DIOXIDE 26 MMOL/L (21-32); CHLORIDE 105 MMOL/L (98-107); CREATININE 1.5 MG/DL (0.55-1.30); POTASSIUM 3.4 MMOL/L (3.5-5.1); SODIUM 143 MMOL/L (136-145)
--- NOTE | 2020-01-13 10:12 | History & Physical ---
History and Physical History & Physicial Dictation completed on 1010 hours Pina Weber MD January 13, 2020 10:12
--- NOTE | 2020-01-13 10:12 | General Progress Note ---
Assessment/Plan Status: stable Assessment/Plan: Dictation In progress A/P: 1- Acute encephalopthy Plan: Nephrology, cardiology, ID consulted current empiricall abx Subjective Allergies: Coded Allergies: PENICILLINS (Verified Allergy, Unknown, 01/12/20) Objective Last 24 Hour Vital Signs Date Time Temp Pulse Resp B/P (MAP) Pulse Ox O2 Delivery O2 Flow Rate FiO2 01/13/20 04:00 75 01/13/20 04:00 97.7 80 18 133/74 (93) 95 01/13/20 00:00 96.8 81 18 140/83 (102) 95 01/13/20 00:00 86 01/12/20 20:14 Room Air 01/12/20 20:00 110 01/12/20 20:00 98.0 87 17 142/79 (100) 96 01/12/20 18:40 87 18 143/87 99 Room Air 01/12/20 16:36 98.4 82 17 162/97 99 Room Air 01/12/20 13:25 97 18 Room Air 01/12/20 13:25 98.4 97 18 180/100 98 Room Air 01/12/20 13:17 98.4 104 16 184/95 (124) 100 Room Air Intake and Output 01/12/20 01/13/20 19:00 07:00 Intake Total 0 ml Balance 0 ml Intake Oral 0 ml # Voids 1 Laboratory Tests 01/12/20 13:40: White Blood Count 9.3, Red Blood Count 4.08L, Hemoglobin 13.2, Hematocrit 37.6, Mean Corpuscular Volume 92, Mean Corpuscular Hemoglobin 32.4H, Mean Corpuscular Hemoglobin Concent 35.1, Red Cell Distribution Width 13.9, Platelet Count 171, Mean Platelet Volume 6.3L, Neutrophils (%) (Auto) , Lymphocytes (%) (Auto) , Monocytes (%) (Auto) , Eosinophils (%) (Auto) , Basophils (%) (Auto) , Differential Total Cells Counted 100, Neutrophils % (Manual) 82H, Lymphocytes % (Manual) 7L, Monocytes % (Manual) 10, Eosinophils % (Manual) 0, Basophils % ( Manual) 0, Band Neutrophils 1, Platelet Estimate Adequate, Platelet Morphology Normal, Red Blood Cell Morphology Normal, Prothrombin Time 10.8, Prothromb Time International Ratio 1.0, Activated Partial Thromboplast Time 37H, D-Dimer 5.04H , Sodium Level 142, Potassium Level 4.0, Chloride Level 101, Carbon Dioxide Level 25, Anion Gap 16H, Blood Urea Nitrogen 33H, Creatinine 1.5H, Estimat Glomerular Filtration Rate 33.4, Glucose Level 131H, Lactic Acid Level 2.10H, Calcium Level 10.1, Ferritin 887H, Total Bilirubin 1.2H, Direct Bilirubin 0.4H, Aspartate Amino Transf (AST/SGOT) 24, Alanine Aminotransferase (ALT/SGPT) 15, Alkaline Phosphatase 73, Lactate Dehydrogenase 486H, Total Creatine Kinase 344H , Creatine Kinase MB 1.4, Creatine Kinase MB Relative Index 0.4, Troponin I 0.004, C-Reactive Protein, Quantitative 25.4H, Pro-B-Type Natriuretic Peptide 1982H, Total Protein 9.0H, Albumin 3.8, Globulin 5.2, Albumin/Globulin Ratio 0.7L 01/12/20 14:35: Urine Color Arlyn, Urine Appearance Slightly cloudy, Urine pH 5, Urine Specific [place] 1.020, Urine Protein 3+H, Urine Glucose (UA) Negative, Urine Ketones 1+H , Urine Blood 5+H, Urine Nitrite Negative, Urine Bilirubin Negative, Urine Ictotest Negative, Urine Urobilinogen Normal, Urine Leukocyte Esterase 3+H, Urine RBC 15-20H, Urine WBC TntcH, Urine Squamous Epithelial Cells ModerateH, Urine Bacteria ManyH 01/12/20 18:20: Lactic Acid Level 2.30H 01/13/20 08:15: White Blood Count 7.4, Red Blood Count 3.57L, Hemoglobin 11.4L, Hematocrit 33.0L , Mean Corpuscular Volume 93, Mean Corpuscular Hemoglobin 32.0H, Mean Corpuscular Hemoglobin Concent 34.6, Red Cell Distribution Width 14.2, Platelet Count 137L, Mean Platelet Volume 6.2L, Neutrophils (%) (Auto) 82.7H, Lymphocytes (%) (Auto) 5.1L, Monocytes (%) (Auto) 11.9H, Eosinophils (%) (Auto) 0.0, Basophils (%) (Auto) 0.2, Sodium Level [Pending], Potassium Level [Pending] , Chloride Level [Pending], Carbon Dioxide Level [Pending], Anion Gap 12, Blood Urea Nitrogen [Pending], Creatinine [Pending], Estimat Glomerular Filtration Rate [Pending], Glucose Level [Pending], Calcium Level [Pending], Total Bilirubin [Pending], Aspartate Amino Transf (AST/SGOT) [Pending], Alanine Aminotransferase (ALT/SGPT) [Pending], Alkaline Phosphatase [Pending], Total Creatine Kinase [Pending], Troponin I [Pending], C-Reactive Protein, Quantitative [Pending], Pro-B-Type Natriuretic Peptide [Pending], Total Protein [Pending], Albumin [Pending], Globulin [Pending], Albumin/Globulin Ratio 0.6L, Hemoglobin A1c 5.8, Uric Acid [Pending], Phosphorus Level [Pending], Magnesium Level [Pending], Gamma Glutamyl Transpeptidase [Pending], Triglycerides Level [ Pending], Cholesterol Level [Pending], LDL Cholesterol [Pending], HDL Cholesterol [Pending], Cholesterol/HDL Ratio [Pending], Vitamin B12 Level [ Pending], Folate [Pending], Thyroid Stimulating Hormone (TSH) [Pending] 01/13/20 09:30: D-Dimer [Pending] Height (Feet): 5 Height (Inches): 6.00 Weight (Pounds): 140 Pina Weber MD January 13, 2020 10:12
[2020-01-13 10:28] LABS: CHOLESTEROL 145 MG/DL (< 200); CREATINE KINASE 208 U/L (26-308); GAMMA GLUTAMYL TRANSPEPTIDASE 22 U/L (5-85); HDL CHOLESTEROL 22 MG/DL (40-60); TRIGLYCERIDES 162 MG/DL (30-150)
--- NOTE | 2020-01-13 11:45 | NUR ---
NURSE NOTES: Dr. Franco made aware of result of blood culture, no new order received at this time. Will continue to monitor.
[2020-01-13 12:00] VITALS: BP 146/64
--- NOTE | 2020-01-13 13:20 | Infectious Diseases Prog Note ---
Assessment/Plan Problems: (1) UTI (urinary tract infection) Assessment & Plan: complicated with sepsis suspect pyelonephritis, continue cefepime empirically pending final urine culture and blood culture (2) Altered level of consciousness Assessment & Plan: Could be due to UTI continue supportive care and antibiotics pending cultures (3) COVID-19 ruled out Assessment & Plan: Keep an enhanced droplet isolation pending PCR test result, obtain LDH, C-reactive protein, and ferritin level (4) Sepsis Assessment & Plan: suspect due to the above suspect pyelonephritis with gram- negative rods, already on cefepime empiric coverage pending blood culture results Subjective Constitutional: Reports: no symptoms HEENT: Reports: no symptoms Respiratory: Reports: no symptoms Breasts: Reports: no symptoms Cardiovascular: Reports: no symptoms Gastrointestinal/Abdominal: Reports: no symptoms Genitourinary: Reports: no symptoms Neurologic: Reports: no symptoms Psychiatric: Reports: no symptoms Skin: Reports: no symptoms Endocrine: Reports: no symptoms Hematologic: Reports: no symptoms Musculoskeletal: Reports: no symptoms Allergies: Coded Allergies: PENICILLINS (Verified Allergy, Unknown, 01/12/20) Subjective she was more awake and coherent responsive well to verbal command denied any cough or shortness of breath no fever or chills Objective Vital Signs Last 24 Hour Vital Signs Date Time Temp Pulse Resp B/P (MAP) Pulse Ox O2 Delivery O2 Flow Rate FiO2 01/13/20 09:00 Room Air 01/13/20 08:00 97.9 85 18 140/78 (98) 96 01/13/20 04:00 75 01/13/20 04:00 97.7 80 18 133/74 (93) 95 01/13/20 00:00 96.8 81 18 140/83 (102) 95 01/13/20 00:00 86 01/12/20 20:14 Room Air 01/12/20 20:00 110 01/12/20 20:00 98.0 87 17 142/79 (100) 96 01/12/20 18:40 87 18 143/87 99 Room Air 01/12/20 16:36 98.4 82 17 162/97 99 Room Air 01/12/20 13:25 97 18 Room Air 01/12/20 13:25 98.4 97 18 180/100 98 Room Air Height (Feet): 5 Height (Inches): 6.00 Weight (Pounds): 140 General Appearance: WD/WN, no acute distress HEENT: normocephalic, atraumatic, anicteric, mucous membranes moist, PERRL Respiratory/Chest: chest wall non-tender, lungs clear, normal breath sounds, no respiratory distress, no accessory muscle use Cardiovascular: normal peripheral pulses, normal rate, regular rhythm, no gallop/murmur, no JVD Abdomen: normal bowel sounds, soft, non tender, no organomegaly, non distended , no mass, no scars Genitourinary: normal external genitalia Extremities: no cyanosis, no clubbing Skin: no rash, no lesions Neurologic/Psychiatric: unload associate II-XII grossly normal, alert, oriented x 3, responsive Lymphatic: no neck adenopathy, no groin adenopathy Microbiology Date/Time Source Procedure Growth Status 01/12/20 13:40 Blood Blood Culture - Preliminary Resulted 01/12/20 13:25 Blood Blood Culture - Preliminary Resulted 01/12/20 14:35 Urine,Clean Catch Urine Culture - Preliminary Gram Negative Bacillus 1 Resulted 01/12/20 17:50 Rectum Received Laboratory Tests Test 01/12/20 13:40 01/12/20 14:35 01/12/20 18:20 01/13/20 08:15 White Blood Count 9.3 K/UL (4.8-10.8) 7.4 K/UL (4.8-10.8) Red Blood Count 4.08 M/UL (4.20-5.40) L 3.57 M/UL (4.20-5.40) L Hemoglobin 13.2 G/DL (12.0-16.0) 11.4 G/DL (12.0-16.0) L Hematocrit 37.6 % (37.0-47.0) 33.0 % (37.0-47.0) L Mean Corpuscular Volume 92 FL (80-99) 93 FL (80-99) Mean Corpuscular Hemoglobin 32.4 PG (27.0-31.0) H 32.0 PG (27.0-31.0) H Mean Corpuscular Hemoglobin Concent 35.1 G/DL (32.0-36.0) 34.6 G/DL (32.0-36.0) Red Cell Distribution Width 13.9 % (11.6-14.8) 14.2 % (11.6-14.8) Platelet Count 171 K/UL (150-450) 137 K/UL (150-450) L Mean Platelet Volume 6.3 FL (6.5-10.1) L 6.2 FL (6.5-10.1) L Neutrophils (%) (Auto) % (45.0-75.0) 82.7 % (45.0-75.0) H Lymphocytes (%) (Auto) % (20.0-45.0) 5.1 % (20.0-45.0) L Monocytes (%) (Auto) % (1.0-10.0) 11.9 % (1.0-10.0) H Eosinophils (%) (Auto) % (0.0-3.0) 0.0 % (0.0-3.0) Basophils (%) (Auto) % (0.0-2.0) 0.2 % (0.0-2.0) Differential Total Cells Counted 100 Neutrophils % (Manual) 82 % (45-75) H Lymphocytes % (Manual) 7 % (20-45) L Monocytes % (Manual) 10 % (1-10) Eosinophils % (Manual) 0 % (0-3) Basophils % (Manual) 0 % (0-2) Band Neutrophils 1 % (0-8) Platelet Estimate Adequate Platelet Morphology Normal Red Blood Cell Morphology Normal Prothrombin Time 10.8 SEC (9.30-11.50) Prothromb Time International Ratio 1.0 (0.9-1.1) Activated Partial Thromboplast Time 37 SEC (23-33) H D-Dimer 5.04 mg/L FEU (0.00-0.49) H Sodium Level 142 MMOL/L (136-145) Pending Potassium Level 4.0 MMOL/L (3.5-5.1) Pending Chloride Level 101 MMOL/L (98-107) Pending Carbon Dioxide Level 25 MMOL/L (21-32) Pending Anion Gap 16 mmol/L (5-15) H 12 mmol/L (5-15) Blood Urea Nitrogen 33 mg/dL (7-18) H Pending Creatinine 1.5 MG/DL (0.55-1.30) H Pending Estimat Glomerular Filtration Rate 33.4 mL/min (>60) Pending Glucose Level 131 MG/DL (74-106) H Pending Lactic Acid Level 2.10 mmol/L (0.4-2.0) H 2.30 mmol/L (0.66-2.22) H Calcium Level 10.1 MG/DL (8.5-10.1) Pending Ferritin 887 NG/ML (8-388) H Total Bilirubin 1.2 MG/DL (0.2-1.0) H Pending Direct Bilirubin 0.4 MG/DL (0.0-0.3) H Aspartate Amino Transf (AST/SGOT) 24 U/L (15-37) Pending Alanine Aminotransferase (ALT/SGPT) 15 U/L (12-78) Pending Alkaline Phosphatase 73 U/L (46-116) Pending Lactate Dehydrogenase 486 U/L (81-234) H Total Creatine Kinase 344 U/L (26-308) H 208 U/L (26-308) Creatine Kinase MB 1.4 NG/ML (0.0-3.6) Creatine Kinase MB Relative Index 0.4 Troponin I 0.004 ng/mL (0.000-0.056) 0.032 ng/mL (0.000-0.056) C-Reactive Protein, Quantitative 25.4 mg/dL (0.00-0.90) H 30.5 mg/dL (0.00-0.90) H Pro-B-Type Natriuretic Peptide 1982 pg/mL (0-125) H 2423 pg/mL (0-125) H Total Protein 9.0 G/DL (6.4-8.2) H Pending Albumin 3.8 G/DL (3.4-5.0) Pending Globulin 5.2 g/dL Pending Albumin/Globulin Ratio 0.7 (1.0-2.7) L 0.6 (1.0-2.7) L Urine Color Arlyn Urine Appearance Slightly cloudy Urine pH 5 (4.5-8.0) Urine Specific [place] 1.020 (1.005-1.035) Urine Protein 3+ (NEGATIVE) H Urine Glucose (UA) Negative (NEGATIVE) Urine Ketones 1+ (NEGATIVE) H Urine Blood 5+ (NEGATIVE) H Urine Nitrite Negative (NEGATIVE) Urine Bilirubin Negative (NEGATIVE) Urine Ictotest Negative (NEGATIVE) Urine Urobilinogen Normal MG/DL (0.0-1.0) Urine Leukocyte Esterase 3+ (NEGATIVE) H Urine RBC 15-20 /HPF (0 - 2) H Urine WBC Tntc /HPF (0 - 2) H Urine Squamous Epithelial Cells Moderate /LPF (NONE/OCC) H Urine Bacteria Many /HPF (NONE) H Hemoglobin A1c 5.8 % (4.3-6.0) Uric Acid 4.3 MG/DL (2.6-7.2) Phosphorus Level 3.0 MG/DL (2.5-4.9) Magnesium Level 1.8 MG/DL (1.8-2.4) Gamma Glutamyl Transpeptidase 22 U/L (5-85) Triglycerides Level 162 MG/DL (30-150) H Cholesterol Level 145 MG/DL (< 200) LDL Cholesterol 89 mg/dL (<100) HDL Cholesterol 22 MG/DL (40-60) L Cholesterol/HDL Ratio 6.6 (3.3-4.4) H Vitamin B12 Level > 2000 PG/ML (193-986) H Folate 20.4 NG/ML (8.6-58.9) Thyroid Stimulating Hormone (TSH) 0.486 uiU/mL (0.358-3.740) HIV (1&2) Antibody Rapid Negative (NEGATIVE) Test 01/13/20 09:30 D-Dimer 3.22 mg/L FEU (0.00-0.49) H Current Medications Medications (Trade) Dose Ordered Sig/Paula Route PRN Reason Start Time Stop Time Status Last Admin Dose Admin Acetaminophen (Tylenol) 650 mg Q6H PRN ORAL Fever >100.5/mild pain 01/12/20 21:00 02/11/20 20:59 Albuterol/ Ipratropium (Albuterol/ Ipratropium) 3 ml Q4H PRN HHN Shortness of Breath 01/12/20 21:00 01/17/20 20:59 Aspirin (ASA) 81 mg DAILY ORAL 01/13/20 09:00 02/27/20 08:59 01/13/20 08:39 Azithromycin 500 mg/Dextrose 275 ml @ 275 mls/hr DAILY IV 01/13/20 09:00 01/18/20 08:59 01/13/20 08:39 Cefepime HCl 1 gm/ Dextrose 55 ml @ 110 mls/hr Q24H IVPB 01/13/20 09:00 01/20/20 08:59 01/13/20 08:39 Clonidine HCl (Catapres Tab) 0.1 mg Q4H PRN ORAL For High Blood Pressure 01/12/20 21:00 04/11/20 20:59 Docusate Sodium (Colace) 100 mg THREE TIMES A DAY ORAL 01/13/20 09:00 02/12/20 08:59 01/13/20 08:39 Enoxaparin Sodium (Lovenox) 30 mg DAILY SUBQ 01/13/20 09:00 04/12/20 08:59 01/13/20 08:40 Hydralazine HCl (Apresoline) 25 mg Q4H PRN ORAL Blood pressure over 160 systol 01/13/20 07:55 04/12/20 07:54 Iohexol (Omnipaque 350 100ml) 100 ml NOW PRN INJ Radiology Procedure 01/12/20 14:45 01/14/20 14:39 Metoprolol Tartrate (Lopressor) 25 mg Q12HR ORAL 01/13/20 12:00 04/12/20 11:59 Ondansetron HCl (Zofran) 4 mg Q6H PRN IVP Nausea & Vomiting 01/12/20 21:00 02/11/20 20:59 Pantoprazole (Protonix) 40 mg Q12HR ORAL 01/13/20 09:00 02/12/20 06:29 01/13/20 08:39 Potassium Chloride (K-Dur) 40 meq ONCE ORAL 01/13/20 12:00 01/13/20 14:00 Sodium Chloride 1,000 ml @ 75 mls/hr [id number] IV 01/13/20 08:00 02/12/20 07:59 01/13/20 08:38 Kieran Franco M.D. January 13, 2020 13:20
--- NOTE | 2020-01-13 15:34 | NUR ---
CASE MANAGEMENT:REVIEW 79 YR OLD FEMALE [facility] CC: ALOC SI: SUSPECTED COVID 19 98.4 104 16 184/95 100% ON RA H/H-11.4/33.0 K-3.4 BUN+37 CR+1.5 BNP+2423 IS: 1L NS BOLUS CT HEAD AND CHEST CTA CHEST COVID 19 SWAB CHEST XRAY BLOOD CX : TO TELEMETRY UNIT
[2020-01-13 16:00] VITALS: BP 139/65
--- NOTE | 2020-01-13 19:30 | NUR ---
NURSE NOTES: Report received from Iraj CRONIN. Patient is awake and alert x 3. Patient noted to be on room air. No complaints of chest pain or shortness of breath. Patient noted to have right forearm 20 saritha IV with fluids running per MD orders. Was endorsed that patient had runs of SVT today. Endorsed that Doctor Chuckie is aware, medication prescribed. Bed locked, in lowest position, and alarmed. Will continue to follow plan of care.
--- NOTE | 2020-01-13 19:31 | NUR ---
HAND-OFF: Report given to MEHRDAD Chung. Endorsed plan of care.
[2020-01-13 20:00] VITALS: BP 141/71
--- NOTE | 2020-01-13 20:59 | History and Physical Report ---
DATE OF ADMISSION: 01/12/2020 SOURCE OF INFORMATION: Patient and EMR. HISTORY OF PRESENT ILLNESS: The patient is an 79-year-old female with dementia, who lives in a senior center. The patient reportedly had been found on the floor and had been transferred by 911 call to the hospital. At the time of evaluation, the patient denies chest pain or shortness of breath. No nausea. No vomitus. No diarrhea. The patient has a slow mentation, patient's baseline unknown, in no distress. REVIEW OF SYSTEMS: All 12 elements of review of systems reviewed, pertinent positive and negative as above. ALLERGIES: Penicillin. PAST MEDICAL AND SURGICAL HISTORY: Including but not limited to C-sections, hypertension. FAMILY HISTORY: Noncontributory. SOCIAL HISTORY: The patient reported that she lives in the [facility] building. Denies history of illicit drug abuse, smoking, or alcohol abuse. The patient is single and no live children reported. CURRENT HOSPITAL MEDICATIONS: Including cefepime, hydralazine. PHYSICAL EXAMINATION: VITAL SIGNS: Blood pressure 180/90, temperature 98.4, pulse rate 104, respiratory rate 18. HEAD AND NECK: Atraumatic and normocephalic. CHEST: Clear to auscultation. HEART: S1, S2. Regular rate and rhythm. ABDOMEN: Soft. No organomegaly. MUSCULOSKELETAL: No gross lateralized motor deficit. NEUROLOGIC: The patient is oriented x3. LABORATORY DATA: Labs dated January 11 shows hemoglobin of 16.2, platelets 171, BUN 33, creatinine 1.5. BNP of 1900. Urinalysis shows multiple wbc's, protein 3+. IMAGING: Chest x-ray, dated January [address] scan of the chest is unremarkable for acute lung disease. Head CT scan is negative for any acute pathology. ASSESSMENT AND PLAN: 1. Acute metabolic encephalopathy. 2. UTI. 3. Dementia. 4. Hypertension. 5. Anemia. 6. Thrombocytopenia. 7. Renal failure, age indeterminate. 8. . 9. Abnormal BNP. 10. GI and DVT prophylaxis. PLAN OF CARE: We will continue with empiric antibiotic treatment. We will obtain a 2D echo and renal ultrasound. We will optimize blood pressure medication. Nephrology, Cardiology have been consulted. Pina Weber M.D. DR: KIM JOB#: [id number] CC:
[2020-01-14] VITALS: BP 140/67
[2020-01-14 04:00] VITALS: BP 135/62
--- NOTE | 2020-01-14 05:23 | NUR ---
NURSE NOTES: Called laboratory to inform that could not obtain blood draw, and needs lab to draw. Was informed that lab will come to draw.
--- NOTE | 2020-01-14 07:59 | NUR ---
HAND-OFF: Report given to Lisa CRONIN.
[2020-01-14 08:00] VITALS: BP 139/64
[2020-01-14 08:02] LABS: ALANINE AMINOTRANSFERASE 23 U/L (12-78); ALBUMIN 2.6 G/DL (3.4-5.0); ALBUMIN/GLOBULIN RATIO 0.7 (1.0-2.7); ALKALINE PHOSPHATASE 62 U/L (46-116); ANION GAP 13 mmol/L (5-15); ASPARTATE AMINO TRANSFERASE 39 U/L (15-37); BILIRUBIN,TOTAL 0.9 MG/DL (0.2-1.0); BLOOD UREA NITROGEN 30 mg/dL (7-18); CALCIUM 8.8 MG/DL (8.5-10.1); CARBON DIOXIDE 24 MMOL/L (21-32); CHLORIDE 104 MMOL/L (98-107); CREATININE 0.9 MG/DL (0.55-1.30); POTASSIUM 4.4 MMOL/L (3.5-5.1); SODIUM 141 MMOL/L (136-145)
[2020-01-14] MEDS: Docusate 100mg cap ORAL SCH ×5 (09:00→17:36)
[2020-01-14] MEDS: Enoxaparin 30mg Inj SUBQ SCH (09:00)
[2020-01-14] MEDS: Azithromycin 500 MG in D5W 275 ML IV SCH (09:16)
[2020-01-14] MEDS: Cefepime HCl 1 GM in D5W 55 ML IVPB SCH (09:23)
[2020-01-14] MEDS: Aspirin Baby 81mg ORAL SCH ×2 (09:24→10:23)
--- NOTE | 2020-01-14 09:55 | Nephrology Progress Note ---
Assessment/Plan Problem List: (1) HONEY (acute kidney injury) (2) Dehydration (3) UTI (urinary tract infection) (4) COVID-19 ruled out Assessment Elevated BUN/creatinine most likely dehydration UTI Encephalopathy which most likely toxic metabolic Rule out COVID 19 infection, Patient has elevated ferritin and LDH and lactate Plan Hydrate as needed Monitor renal parameters, serum creatinine normalized Per ID advice Per orders Subjective ROS Limited/Unobtainable: No Objective Objective Last 24 Hour Vital Signs Date Time Temp Pulse Resp B/P (MAP) Pulse Ox O2 Delivery O2 Flow Rate FiO2 01/14/20 09:24 71 139/64 01/14/20 08:44 Room Air 01/14/20 04:00 96.8 67 18 135/62 (86) 96 01/14/20 04:00 59 01/14/20 00:00 98.1 71 19 140/67 (91) 95 01/14/20 00:00 72 01/13/20 21:00 Room Air 01/13/20 20:30 81 141/71 01/13/20 20:00 97.7 81 18 141/71 (94) 98 01/13/20 20:00 99 01/13/20 16:00 72 01/13/20 16:00 97.8 73 18 139/65 (89) 95 01/13/20 13:28 85 140/78 01/13/20 12:00 97.7 88 18 146/64 (91) 95 01/13/20 12:00 80 Intake and Output 01/13/20 01/14/20 19:00 07:00 Intake Total 195 ml 750 ml Balance 195 ml 750 ml Intake Oral 120 ml IV Total 75 ml 750 ml # Voids 2 2 Laboratory Tests 01/13/20 18:30: Hepatitis A IgM Antibody Negative, Hepatitis B Surface Antigen Negative, Hepatitis B Core IgM Antibody Negative, Hepatitis C Antibody <0.1 01/14/20 06:11: Sodium Level 141, Potassium Level 4.4, Chloride Level 104, Carbon Dioxide Level 24, Anion Gap 13, Blood Urea Nitrogen 30H, Creatinine 0.9, Estimat Glomerular Filtration Rate > 60, Glucose Level 85, Calcium Level 8.8, Total Bilirubin 0.9, Aspartate Amino Transf (AST/SGOT) 39H, Alanine Aminotransferase (ALT/SGPT) 23, Alkaline Phosphatase 62, Total Protein 6.3L, Albumin 2.6L, Globulin 3.7, Albumin /Globulin Ratio 0.7L Height (Feet): 5 Height (Inches): 6.00 Weight (Pounds): 140 General Appearance: no apparent distress Cardiovascular: normal rate Abdomen: soft Neurologic: other - More alert Denis Begum MD January 14, 2020 09:55
--- NOTE | 2020-01-14 10:36 | Consultation ---
History of Present Illness General Chief Complaint: Altered Level of Consciousness Referring physician: Dr. flaquita Whiteside Reason for Consultation: Urine tract infection Present Illness Allergies: Coded Allergies: PENICILLINS (Verified Allergy, Unknown, 01/12/20) Medication History Scheduled Lisinopril (Lisinopril*), Unknown Dose ORAL DAILY, (Reported) Patient History Healthcare decision maker Resuscitation status Advanced Directive on File Physical Exam Last 24 Hour Vital Signs Date Time Temp Pulse Resp B/P (MAP) Pulse Ox O2 Delivery O2 Flow Rate FiO2 01/14/20 09:24 71 139/64 01/14/20 08:44 Room Air 01/14/20 04:00 96.8 67 18 135/62 (86) 96 01/14/20 04:00 59 01/14/20 00:00 98.1 71 19 140/67 (91) 95 01/14/20 00:00 72 01/13/20 21:00 Room Air 01/13/20 20:30 81 141/71 01/13/20 20:00 97.7 81 18 141/71 (94) 98 01/13/20 20:00 99 01/13/20 16:00 72 01/13/20 16:00 97.8 73 18 139/65 (89) 95 01/13/20 13:28 85 140/78 01/13/20 12:00 97.7 88 18 146/64 (91) 95 01/13/20 12:00 80 Intake and Output 01/13/20 01/14/20 19:00 07:00 Intake Total 195 ml 750 ml Balance 195 ml 750 ml Intake Oral 120 ml IV Total 75 ml 750 ml # Voids 2 2 Laboratory Tests Test 01/13/20 18:30 01/14/20 06:11 Hepatitis A IgM Antibody Negative (Negative) Hepatitis B Surface Antigen Negative (Negative) Hepatitis B Core IgM Antibody Negative (Negative) Hepatitis C Antibody <0.1 s/co ratio Sodium Level 141 MMOL/L (136-145) Potassium Level 4.4 MMOL/L (3.5-5.1) Chloride Level 104 MMOL/L (98-107) Carbon Dioxide Level 24 MMOL/L (21-32) Anion Gap 13 mmol/L (5-15) Blood Urea Nitrogen 30 mg/dL (7-18) H Creatinine 0.9 MG/DL (0.55-1.30) Estimat Glomerular Filtration Rate > 60 mL/min (>60) Glucose Level 85 MG/DL (74-106) Calcium Level 8.8 MG/DL (8.5-10.1) Total Bilirubin 0.9 MG/DL (0.2-1.0) Aspartate Amino Transf (AST/SGOT) 39 U/L (15-37) H Alanine Aminotransferase (ALT/SGPT) 23 U/L (12-78) Alkaline Phosphatase 62 U/L (46-116) Total Protein 6.3 G/DL (6.4-8.2) L Albumin 2.6 G/DL (3.4-5.0) L Globulin 3.7 g/dL Albumin/Globulin Ratio 0.7 (1.0-2.7) L Height (Feet): 5 Height (Inches): 6.00 Weight (Pounds): 140 Medications Current Medications Medications (Trade) Dose Ordered Sig/Paula Route PRN Reason Start Time Stop Time Status Last Admin Dose Admin Acetaminophen (Tylenol) 650 mg Q6H PRN ORAL Fever >100.5/mild pain 01/12/20 21:00 02/11/20 20:59 Albuterol/ Ipratropium (Albuterol/ Ipratropium) 3 ml Q4H PRN HHN Shortness of Breath 01/12/20 21:00 01/17/20 20:59 Aspirin (ASA) 81 mg DAILY ORAL 01/13/20 09:00 02/27/20 08:59 01/13/20 08:39 Azithromycin 500 mg/Dextrose 275 ml @ 275 mls/hr DAILY IV 01/13/20 09:00 01/18/20 08:59 01/14/20 09:16 Cefepime HCl 1 gm/ Dextrose 55 ml @ 110 mls/hr Q24H IVPB 01/13/20 09:00 01/20/20 08:59 01/14/20 09:23 Docusate Sodium (Colace) 100 mg THREE TIMES A DAY ORAL 01/13/20 09:00 02/12/20 08:59 01/13/20 17:54 Enoxaparin Sodium (Lovenox) 30 mg DAILY SUBQ 01/13/20 09:00 04/12/20 08:59 01/13/20 08:40 Hydralazine HCl (Apresoline) 25 mg Q4H PRN ORAL Blood pressure over 160 systol 01/13/20 07:55 04/12/20 07:54 Iohexol (Omnipaque 350 100ml) 100 ml NOW PRN INJ Radiology Procedure 01/12/20 14:45 01/14/20 14:39 Metoprolol Tartrate (Lopressor) 25 mg Q12HR ORAL 01/13/20 12:00 04/12/20 11:59 01/14/20 09:24 Ondansetron HCl (Zofran) 4 mg Q6H PRN IVP Nausea & Vomiting 01/12/20 21:00 02/11/20 20:59 Pantoprazole (Protonix) 40 mg Q12HR ORAL 01/13/20 09:00 02/12/20 06:29 01/14/20 09:23 Sodium Chloride 1,000 ml @ 50 mls/hr Q20H IV 01/14/20 10:00 02/13/20 09:59 01/14/20 10:22 Assessment/Plan Assessment/Plan: Heme Consultation Note REQ MD Donell Weber RFC Thrombocytopenia, coagulopathy eval DOS 01/14/2020 ID 79-year-old female with possible history of CHF and AK I brought in by paramedics from an assisted living due to altered level of consciousness. According to [facility] report patient was found sitting down leaning against the wall and being altered. Does not present with a summary report of medication and past medical illnesses. Unknown baseline for her dementia. Patient appears to be stable with stable vital signs. Afebrile and oxygenation within normal limit. No cough noted. Patient is a poor historian however reports that at times she has been short of breath. Patient elicits a lot of pain to gentle palpation of bilateral lower extremities. Bilateral lower extremities appear to be chronically tightened possible chronic DVT. Denies abdominal pain , nausea vomiting diarrhea. Patient is neurovascularly intact. No generalized or unilateral weakness noted. Patient speaking full sentences and no slurred speech noted. Head appears to be atraumatic Here for covid rule out and heme consulted for eval of low platelets, ptt is elevated, noted to be anemic, have reviewed renal and id recs Allergies: Coded Allergies: PENICILLINS (Verified Allergy, Unknown, 01/12/20) COVID-19 Screening Contact w/high risk pt: No Recent Travel to affected area: No Experienced COVID-19 symptoms?: No Patient History Past Medical History: see triage record Past Surgical History: unable to obtain Pertinent Family History: unable to obtain Immunizations: UTD Reviewed Nursing Documentation: PMH: Agreed; ROS General: Denies fatigue, fever, chills, weight loss HENT: Denies oral sores, neck masses, nasal d/c, hearing problems Vison: Denies change in vision, eye pain, redness, discharge Cardiac: As above Pulmonary: As above GI: Denies heart burn, swallowing difficulty, abdominal pain, diarrhea, constipation : As per HPI Neuro: Denies seizure, weakness, numbness Endo: Denies heat/cold intolerance, weight changes, polyuria, polydipsia Heme/Onc: Denies unusual bleeding, bruising, clotting MSK: Denies join pain, swelling, muscle aches Mental Health: Denies anxiety, depression, mood changes PE: Vitals: reviewed General Appearance: NAD HEENT: normocephalic, atraumatic Respiratory/Chest: normal breath sounds bilaterally Cardiovascular/Chest: normal peripheral pulses, normal rate, no mgr Abdomen: normal bowel sounds, soft, nontender Extremities: normal range of motion Labs noted Imaging noted Assessment and Recs # Thrombocytopenia - potential causes multifactorial, evaluate liver and viral etiologies to begin, also could be related to underlying medications patient has received. rule out underlying infection UTI --> Hep panel and HIV ordered --> NEG --> US abd to evaluate for cirrhosis and hsm ordered --> Peripheral smear ordered to evaluate for blasts /schistocytes --> abx and other meds have been reviewed --> ok for ppx if plt >50k w/ either heparin or lovenox --> Transfuse if Plt < 20k and fever, or if Plt < 10 without fever # Anemia of chronic disease due to underlying chronic medical issues, multifactorial v Gi bleed --> Anemia workup has been ordered, rule out gi bleed --> No evidence of hemolysis is noted, peripheral smear has been reviewed. --> Hgb goal >7. Transfuse prn. --> Epogen or iron at this time is not particularly indicated --> Medications have been reviewed --> low threshold for gi evaluation in case has occult + # Coagulopathy likely due to infection, just ptt elev --> consider retesting prn --> vit K prn sq # Altered level of consciousness --> likely toxic metabolic # UTI --> on abx # Thoracic kyphosis # Dvt ppx scds The timing of this note does not necessarily reflect the time of the patient was seen. Greatly appreciate consultation. Morris Mohamud MD January 14, 2020 10:36
--- NOTE | 2020-01-14 11:59 | General Progress Note ---
Assessment/Plan Status: stable Assessment/Plan: S: I am ok O: denies any chest pain or sob PHYSICAL EXAMINATION:HEAD AND NECK: Atraumatic and normocephalic. CHEST: Clear to auscultation.HEART: S1, S2. Regular rate and rhythm. ABDOMEN: Soft. No organomegaly.MUSCULOSKELETAL: No gross lateralized motor deficit. NEUROLOGIC: The patient is alert and oriented x3. LABORATORY DATA: Labs dated January 13 reviewed IMAGING: Chest x-ray, dated January [address] scan of the chest is unremarkable for acute lung disease. Head CT scan is negative for any acute pathology. ASSESSMENT AND PLAN: 1. Acute metabolic encephalopathy. 2. Sepsis: Gram negative UTI. 3. Dementia. 4. Hypertension. 5. Anemia. 6. Thrombocytopenia. 7. Renal failure, age indeterminate. 9. Abnormal BNP. 10. GI and DVT prophylaxis. PLAN OF CARE: Culture-Targeted abx regiments current isolation Subjective Allergies: Coded Allergies: PENICILLINS (Verified Allergy, Unknown, 01/12/20) Objective Last 24 Hour Vital Signs Date Time Temp Pulse Resp B/P (MAP) Pulse Ox O2 Delivery O2 Flow Rate FiO2 01/14/20 09:24 71 139/64 01/14/20 08:44 Room Air 01/14/20 04:00 96.8 67 18 135/62 (86) 96 01/14/20 04:00 59 01/14/20 00:00 98.1 71 19 140/67 (91) 95 01/14/20 00:00 72 01/13/20 21:00 Room Air 01/13/20 20:30 81 141/71 01/13/20 20:00 97.7 81 18 141/71 (94) 98 01/13/20 20:00 99 01/13/20 16:00 72 01/13/20 16:00 97.8 73 18 139/65 (89) 95 01/13/20 13:28 85 140/78 01/13/20 12:00 97.7 88 18 146/64 (91) 95 01/13/20 12:00 80 Intake and Output 01/13/20 01/14/20 19:00 07:00 Intake Total 195 ml 750 ml Balance 195 ml 750 ml Intake Oral 120 ml IV Total 75 ml 750 ml # Voids 2 2 Laboratory Tests 01/13/20 18:30: Hepatitis A IgM Antibody Negative, Hepatitis B Surface Antigen Negative, Hepatitis B Core IgM Antibody Negative, Hepatitis C Antibody <0.1 01/14/20 06:11: Sodium Level 141, Potassium Level 4.4, Chloride Level 104, Carbon Dioxide Level 24, Anion Gap 13, Blood Urea Nitrogen 30H, Creatinine 0.9, Estimat Glomerular Filtration Rate > 60, Glucose Level 85, Calcium Level 8.8, Total Bilirubin 0.9, Aspartate Amino Transf (AST/SGOT) 39H, Alanine Aminotransferase (ALT/SGPT) 23, Alkaline Phosphatase 62, Total Protein 6.3L, Albumin 2.6L, Globulin 3.7, Albumin /Globulin Ratio 0.7L Height (Feet): 5 Height (Inches): 6.00 Weight (Pounds): 140 Pina Weber MD January 14, 2020 11:59
[2020-01-14 12:00] VITALS: BP 137/58
--- NOTE | 2020-01-14 12:44 | Infectious Diseases Prog Note ---
Assessment/Plan Problems: (1) UTI (urinary tract infection) Assessment & Plan: complicated with sepsis suspect pyelonephritis, due to E coli , continue cefepime empirically pending final blood culture (2) COVID-19 ruled out Assessment & Plan: Keep an enhanced droplet isolation pending PCR test result, obtain LDH, C-reactive protein, and ferritin level (3) Sepsis Assessment & Plan: suspect due to the above suspect pyelonephritis with gram- negative rods, already on cefepime empiric coverage pending blood culture results (4) Altered level of consciousness Assessment & Plan: due to the above , continue supportive care and antibiotics pending cultures Subjective Constitutional: Reports: no symptoms HEENT: Reports: no symptoms Respiratory: Reports: no symptoms Breasts: Reports: no symptoms Cardiovascular: Reports: no symptoms Gastrointestinal/Abdominal: Reports: no symptoms Genitourinary: Reports: no symptoms Neurologic: Reports: no symptoms Psychiatric: Reports: no symptoms Skin: Reports: no symptoms Endocrine: Reports: no symptoms Hematologic: Reports: no symptoms Musculoskeletal: Reports: no symptoms Allergies: Coded Allergies: PENICILLINS (Verified Allergy, Unknown, 01/12/20) Subjective she was more awake and coherent responsive well to verbal command denied any cough or shortness of breath no fever or chills Objective Vital Signs Last 24 Hour Vital Signs Date Time Temp Pulse Resp B/P (MAP) Pulse Ox O2 Delivery O2 Flow Rate FiO2 01/14/20 09:24 71 139/64 01/14/20 08:44 Room Air 01/14/20 04:00 96.8 67 18 135/62 (86) 96 01/14/20 04:00 59 01/14/20 00:00 98.1 71 19 140/67 (91) 95 01/14/20 00:00 72 01/13/20 21:00 Room Air 01/13/20 20:30 81 141/71 01/13/20 20:00 97.7 81 18 141/71 (94) 98 01/13/20 20:00 99 01/13/20 16:00 72 01/13/20 16:00 97.8 73 18 139/65 (89) 95 01/13/20 13:28 85 140/78 Height (Feet): 5 Height (Inches): 6.00 Weight (Pounds): 140 General Appearance: WD/WN, no acute distress HEENT: normocephalic, atraumatic, anicteric, mucous membranes moist, PERRL Respiratory/Chest: chest wall non-tender, lungs clear, normal breath sounds, no respiratory distress, no accessory muscle use Cardiovascular: normal peripheral pulses, normal rate, regular rhythm, no gallop/murmur, no JVD Abdomen: normal bowel sounds, soft, non tender, no organomegaly, non distended , no mass, no scars Genitourinary: normal external genitalia Extremities: no cyanosis, no clubbing Skin: no rash, no lesions, no ulcers Neurologic/Psychiatric: ophthalmic nurse II-XII grossly normal, no motor/sensory deficits, alert, responsive Lymphatic: no neck adenopathy, no groin adenopathy Musculoskeletal: normal muscle bulk, no effusion Microbiology Date/Time Source Procedure Growth Status 01/12/20 13:40 Blood Blood Culture - Preliminary Gram Negative Bacillus 1 Resulted 01/12/20 13:25 Blood Blood Culture - Preliminary Gram Negative Bacillus 1 Resulted 01/12/20 13:40 Nasopharynx Coronavirus COVID-19 PCR (JIE) - Final Complete 01/12/20 14:35 Urine,Clean Catch Urine Culture - Final Escherichia Coli Complete 01/12/20 17:50 Rectum Received Laboratory Tests Test 01/13/20 18:30 01/14/20 06:11 Hepatitis A IgM Antibody Negative (Negative) Hepatitis B Surface Antigen Negative (Negative) Hepatitis B Core IgM Antibody Negative (Negative) Hepatitis C Antibody <0.1 s/co ratio Sodium Level 141 MMOL/L (136-145) Potassium Level 4.4 MMOL/L (3.5-5.1) Chloride Level 104 MMOL/L (98-107) Carbon Dioxide Level 24 MMOL/L (21-32) Anion Gap 13 mmol/L (5-15) Blood Urea Nitrogen 30 mg/dL (7-18) H Creatinine 0.9 MG/DL (0.55-1.30) Estimat Glomerular Filtration Rate > 60 mL/min (>60) Glucose Level 85 MG/DL (74-106) Calcium Level 8.8 MG/DL (8.5-10.1) Total Bilirubin 0.9 MG/DL (0.2-1.0) Aspartate Amino Transf (AST/SGOT) 39 U/L (15-37) H Alanine Aminotransferase (ALT/SGPT) 23 U/L (12-78) Alkaline Phosphatase 62 U/L (46-116) Total Protein 6.3 G/DL (6.4-8.2) L Albumin 2.6 G/DL (3.4-5.0) L Globulin 3.7 g/dL Albumin/Globulin Ratio 0.7 (1.0-2.7) L Current Medications Medications (Trade) Dose Ordered Sig/Paula Route PRN Reason Start Time Stop Time Status Last Admin Dose Admin Acetaminophen (Tylenol) 650 mg Q6H PRN ORAL Fever >100.5/mild pain 01/12/20 21:00 02/11/20 20:59 Albuterol/ Ipratropium (Albuterol/ Ipratropium) 3 ml Q4H PRN HHN Shortness of Breath 01/12/20 21:00 01/17/20 20:59 Aspirin (ASA) 81 mg DAILY ORAL 01/13/20 09:00 02/27/20 08:59 01/13/20 08:39 Azithromycin 500 mg/Dextrose 275 ml @ 275 mls/hr DAILY IV 01/13/20 09:00 01/18/20 08:59 01/14/20 09:16 Docusate Sodium (Colace) 100 mg THREE TIMES A DAY ORAL 01/13/20 09:00 02/12/20 08:59 01/13/20 17:54 Enoxaparin Sodium (Lovenox) 30 mg DAILY SUBQ 01/13/20 09:00 04/12/20 08:59 01/13/20 08:40 Hydralazine HCl (Apresoline) 25 mg Q4H PRN ORAL Blood pressure over 160 systol 01/13/20 07:55 04/12/20 07:54 Iohexol (Omnipaque 350 100ml) 100 ml NOW PRN INJ Radiology Procedure 01/12/20 14:45 01/14/20 14:39 Meropenem 1 gm/ Sodium Chloride 55 ml @ 110 mls/hr Q12HR IVPB 01/14/20 14:00 01/19/20 13:59 Metoprolol Tartrate (Lopressor) 25 mg Q12HR ORAL 01/13/20 12:00 04/12/20 11:59 01/14/20 09:24 Ondansetron HCl (Zofran) 4 mg Q6H PRN IVP Nausea & Vomiting 01/12/20 21:00 02/11/20 20:59 Pantoprazole (Protonix) 40 mg Q12HR ORAL 01/13/20 09:00 02/12/20 06:29 01/14/20 09:23 Sodium Chloride 1,000 ml @ 50 mls/hr Q20H IV 01/14/20 10:00 02/13/20 09:59 01/14/20 10:22 Kieran Franco M.D. January 14, 2020 12:44
[2020-01-14] MEDS: Meropenem 1 GM in NS 55 ML IVPB SCH ×2 (14:38→21:05)
[2020-01-14 16:00] VITALS: BP 142/66
--- NOTE | 2020-01-14 16:45 | Consultation ---
DATE OF CONSULTATION: 01/13/2020 CARDIOLOGY CONSULTATION CONSULTING PHYSICIAN: Thuan Cortes MD. REFERRING PHYSICIAN: Pina Weber MD. REASON FOR CONSULTATION: Management of tachycardia, possible congestive heart failure. HISTORY OF PRESENT ILLNESS: The patient is a very unfortunate 79-year-old female, resident of an assisted living, who was brought in by paramedics for assessment of altered level of consciousness and shortness of breath. There were no complains about cough or fever, however the patient was considered to be a poor historian due to altered level of consciousness. Past medical history is significant for history of congestive heart failure and renal failure. At the time of arrival to this facility, blood pressure was 184/95 mmHg, heart rate of 104. The patient was afebrile. Initial laboratory finding in the emergency department confirmed leukopenia. BUN and creatinine of 33 and 1.5 respectively. Elevated brain natriuretic peptide at 1982 and normal troponin I level of 0.004. C-reactive protein was also elevated at 25.4. D-dimer was measured and was elevated at 5.0. The patient was admitted to telemetry for further evaluation and management. Cardiology consultation was made at request of Dr. Weber PAST MEDICAL HISTORY: 1. Congestive heart failure. 2. Renal failure. PAST SURGICAL HISTORY: None. FAMILY HISTORY: No premature coronary artery disease in the first-degree relatives. ALLERGIES: Penicillin. REVIEW OF SYSTEMS: A 12-system review could not be obtained as the patient has altered level of consciousness. MEDICATIONS: List of medication, lisinopril 20 mg one tablet daily. PHYSICAL EXAMINATION: VITAL SIGNS: Blood pressure was 184/95, pulse of 104, respirations 16, temperature 98.4 degrees Fahrenheit, O2 saturation 100% on room air. GENERAL: The patient is a very pleasant 79-year-old , in no apparent respiratory distress. HEENT: Atraumatic and normocephalic. Anicteric. Pupils are equal, round, and reactive to light and accommodation. Extraocular muscles intact. NECK: JVP less than 5 cm. No carotid bruit. Carotid upstrokes 2+ bilaterally. CARDIOVASCULAR: Normal S1, S2. Regular rate and rhythm. No murmurs, gallops, or rubs. PMI is at fourth intercostal space in the midclavicular line. LUNGS: Clear to auscultation bilaterally. ABDOMEN: Soft, nontender, nondistended. No hepatosplenomegaly. Positive bowel sounds. EXTREMITIES: No evidence of edema, clubbing, or cyanosis. There is positive calf tenderness in both legs. DIAGNOSTIC DATA: Chest x-ray showed no acute cardiopulmonary disease. CT of chest showed emphysematous changes. CT of head showed no acute intracranial process and evidence for left craniotomy. ASSESSMENT AND PLAN: The patient is a very unfortunate 79-year-old lady, who is seen in Cardiology consultation. 1. Dyspnea. This requires a working diagnosis. Recently elevated brain natriuretic peptide is for some elevation of the intracardiac filling pressure. Chest x-ray does not show an overt pulmonary edema. We will require a 2D echocardiography for assessment of LV systolic and diastolic function. I also suspect COVID-19 infection in view of lymphopenia, being a resident of assisted living facility, and elevated D-dimer. 2. Hypertension. The patient's lisinopril will be placed on hold in view of renal failure. We will continue with low-dose amlodipine. I would like to thank, Dr. Weber, for the courtesy of this consultation. Thuan Cortes M.D. DR: PRISCILA JOB#: [id number] CC:
--- NOTE | 2020-01-14 17:36 | NUR ---
NURSE NOTES: pt does not want colace she says it gives her diarrhea.
--- NOTE | 2020-01-14 19:24 | NUR ---
HAND-OFF: Report given to Grider/RN pt in stable condition.
--- NOTE | 2020-01-14 19:25 | NUR ---
NURSE NOTES: Received report from Lisa Gilbert RN. Pt in stable condition, denies pain, no signs or symptoms of distress noted at this time. Bed in lowest position, bed alarm armed, call light within reach. Pt instructed to use call light if assistance is needed; verbalized understanding. Will continue plan of care and close monitoring.
[2020-01-14 20:00] VITALS: BP 139/63
--- NOTE | 2020-01-14 23:19 | Cardiology Progress Note ---
Assessment/Plan Assessment/Plan 1. Dyspnea, Chest x-ray does not show an overt pulmonary edema. 2D echocardiography shows normal LV systolic function with LVEF at 65%, negative COVID-19 infection. 2. Hypertension, continue amlodipine. 3. HONEY, resolved. 4. Dyslipidemia. Subjective Subjective Sinus rhythm at rate of 74. Objective Last 24 Hour Vital Signs Date Time Temp Pulse Resp B/P (MAP) Pulse Ox O2 Delivery O2 Flow Rate FiO2 01/14/20 21:06 74 139/63 01/14/20 21:00 Room Air 01/14/20 20:00 98.7 74 19 139/63 (88) 97 01/14/20 20:00 74 01/14/20 18:13 69 01/14/20 16:00 98.2 66 18 142/66 (91) 95 01/14/20 12:00 67 01/14/20 12:00 99.1 66 18 137/58 (84) 98 01/14/20 09:24 71 139/64 01/14/20 08:44 Room Air 01/14/20 08:00 99.1 71 18 139/64 (89) 97 01/14/20 08:00 62 01/14/20 04:00 96.8 67 18 135/62 (86) 96 01/14/20 04:00 59 01/14/20 00:00 98.1 71 19 140/67 (91) 95 01/14/20 00:00 72 Intake and Output 01/13/20 01/14/20 19:00 07:00 Intake Total 195 ml 750 ml Balance 195 ml 750 ml Intake Oral 120 ml IV Total 75 ml 750 ml # Voids 2 2 CXR: reviewed 2D Echo: EF 65%, Grade I LVDD, RVSP 39 mmHg, MIld MR Laboratory Tests Test 01/14/20 06:11 Sodium Level 141 MMOL/L (136-145) Potassium Level 4.4 MMOL/L (3.5-5.1) Chloride Level 104 MMOL/L (98-107) Carbon Dioxide Level 24 MMOL/L (21-32) Anion Gap 13 mmol/L (5-15) Blood Urea Nitrogen 30 mg/dL (7-18) H Creatinine 0.9 MG/DL (0.55-1.30) Estimat Glomerular Filtration Rate > 60 mL/min (>60) Glucose Level 85 MG/DL (74-106) Calcium Level 8.8 MG/DL (8.5-10.1) Total Bilirubin 0.9 MG/DL (0.2-1.0) Aspartate Amino Transf (AST/SGOT) 39 U/L (15-37) H Alanine Aminotransferase (ALT/SGPT) 23 U/L (12-78) Alkaline Phosphatase 62 U/L (46-116) Total Protein 6.3 G/DL (6.4-8.2) L Albumin 2.6 G/DL (3.4-5.0) L Globulin 3.7 g/dL Albumin/Globulin Ratio 0.7 (1.0-2.7) L Microbiology Date/Time Source Procedure Growth Status 01/12/20 13:40 Blood Blood Culture - Preliminary Gram Negative Bacillus 1 Resulted 01/12/20 13:25 Blood Blood Culture - Preliminary Gram Negative Bacillus 1 Resulted 01/12/20 13:40 Nasopharynx Coronavirus COVID-19 PCR ([facility]) - Final Complete 01/12/20 14:35 Urine,Clean Catch Urine Culture - Final Escherichia Coli Complete 01/12/20 17:50 Rectum Received Objective HEENT: Atraumatic and normocephalic. Anicteric. Pupils are equal, round, and reactive to light and accommodation. Extraocular muscles intact. NECK: JVP less than 5 cm. No carotid bruit. Carotid upstrokes 2+ bilaterally. CARDIOVASCULAR: Normal S1, S2. Regular rate and rhythm. No murmurs, gallops, or rubs. PMI is at fourth intercostal space in the midclavicular line. LUNGS: Clear to auscultation bilaterally. ABDOMEN: Soft, nontender, nondistended. No hepatosplenomegaly. Positive bowel sounds. EXTREMITIES: No evidence of edema, clubbing, or cyanosis. There is positive calf tenderness in both legs. Thuan Cortes MD January 14, 2020 23:19
[2020-01-15] VITALS (7 sets, daily range): BP systolic 88–144; BP diastolic 53–73
--- NOTE | 2020-01-15 07:13 | NUR ---
NURSE NOTES: pt is in bed having breakfast. repositioned pt. pt on lead etl developer, no signs of cardiac or respiratory distress at this time. Bed in lowest position and locked, call light within reach. Side rails up x2 for safety. Will continue to monitor pt. pt has pain on both legs but only when she moves. She is not asking for pain meds.
[2020-01-15 07:27] LABS: BASOPHILS % (AUTO) 0.5 % (0.0-2.0); EOSINOPHILS % (AUTO) 1.2 % (0.0-3.0); HEMATOCRIT 31.8 % (37.0-47.0); LYMPHOCYTES % (AUTO) 11.3 % (20.0-45.0); MEAN CORPUSCULAR VOLUME 92 FL (80-99); MONOCYTES % (AUTO) 13.4 % (1.0-10.0); NEUTROPHILS % (AUTO) 73.6 % (45.0-75.0); PLATELET COUNT 132 K/UL (150-450); RED BLOOD COUNT 3.46 M/UL (4.20-5.40); RED CELL DISTRIBUTION WIDTH 13.8 % (11.6-14.8); WHITE BLOOD COUNT 5.8 K/UL (4.8-10.8)
--- NOTE | 2020-01-15 07:34 | NUR ---
HAND-OFF: Report given to Lisa Gilbert RN. Pt in stable condition, endorsed plan of care.
[2020-01-15 07:46] LABS: % IRON SATURATION 55 % (15-50); IRON 83 ug/dL (50-175); TOTAL IRON BINDING CAPACITY 150 ug/dL (250-450)
[2020-01-15 07:56] LABS: ALANINE AMINOTRANSFERASE 20 U/L (12-78); ALBUMIN 2.3 G/DL (3.4-5.0); ALBUMIN/GLOBULIN RATIO 0.5 (1.0-2.7); ALKALINE PHOSPHATASE 59 U/L (46-116); ANION GAP 10 mmol/L (5-15); ASPARTATE AMINO TRANSFERASE 28 U/L (15-37); BILIRUBIN,TOTAL 0.8 MG/DL (0.2-1.0); BLOOD UREA NITROGEN 21 mg/dL (7-18); CALCIUM 8.9 MG/DL (8.5-10.1); CARBON DIOXIDE 26 MMOL/L (21-32); CHLORIDE 102 MMOL/L (98-107); CREATININE 0.9 MG/DL (0.55-1.30); FERRITIN 1174 NG/ML (8-388); POTASSIUM 3.8 MMOL/L (3.5-5.1); SODIUM 138 MMOL/L (136-145)
--- NOTE | 2020-01-15 08:21 | Hematology/Onc Progress Note ---
Assessment/Plan Assessment/Plan Assessment and Recs # Thrombocytopenia - potential causes multifactorial, evaluate liver and viral etiologies to begin, also could be related to underlying medications patient has received. rule out underlying infection UTI --> Hep panel and HIV ordered --> NEG --> US abd to evaluate for cirrhosis and hsm ordered --> Peripheral smear ordered to evaluate for blasts /schistocytes --> abx and other meds have been reviewed --> ok for ppx if plt >50k w/ either heparin or lovenox --> Transfuse if Plt < 20k and fever, or if Plt < 10 without fever --> plt trend: 132 # Anemia of chronic disease due to underlying chronic medical issues, multifactorial v Gi bleed --> Anemia workup has been ordered, rule out gi bleed --> No evidence of hemolysis is noted, peripheral smear has been reviewed. --> Hgb goal >7. Transfuse prn. --> Epogen or iron at this time is not particularly indicated --> Medications have been reviewed --> low threshold for gi evaluation in case has occult + # Coagulopathy likely due to infection, just ptt elev --> consider retesting prn --> vit K prn sq # Altered level of consciousness --> likely toxic metabolic # UTI --> on abx # Thoracic kyphosis # Dvt ppx scds The timing of this note does not necessarily reflect the time of the patient was seen. Greatly appreciate consultation. Subjective Allergies: Coded Allergies: PENICILLINS (Verified Allergy, Unknown, 01/12/20) Subjective 01/14 on tele, no acute events, carol ann/azithro, 01/12 jeimy duplex negative for dvt Objective Objective Current Medications Medications (Trade) Dose Ordered Sig/Paula Route PRN Reason Start Time Stop Time Status Last Admin Dose Admin Acetaminophen (Tylenol) 650 mg Q6H PRN ORAL Fever >100.5/mild pain 01/12/20 21:00 02/11/20 20:59 Albuterol/ Ipratropium (Albuterol/ Ipratropium) 3 ml Q4H PRN HHN Shortness of Breath 01/12/20 21:00 01/17/20 20:59 Azithromycin 500 mg/Dextrose 275 ml @ 275 mls/hr DAILY IV 01/13/20 09:00 01/18/20 08:59 01/14/20 09:16 Docusate Sodium (Colace) 100 mg THREE TIMES A DAY ORAL 01/13/20 09:00 02/12/20 08:59 01/13/20 17:54 Enoxaparin Sodium (Lovenox) 30 mg DAILY SUBQ 01/13/20 09:00 04/12/20 08:59 01/13/20 08:40 Hydralazine HCl (Apresoline) 25 mg Q4H PRN ORAL Blood pressure over 160 systol 01/13/20 07:55 04/12/20 07:54 Meropenem 1 gm/ Sodium Chloride 55 ml @ 110 mls/hr Q12HR IVPB 01/14/20 14:00 01/19/20 13:59 01/14/20 21:05 Metoprolol Tartrate (Lopressor) 25 mg Q12HR ORAL 01/13/20 12:00 04/12/20 11:59 01/14/20 21:06 Ondansetron HCl (Zofran) 4 mg Q6H PRN IVP Nausea & Vomiting 01/12/20 21:00 02/11/20 20:59 Pantoprazole (Protonix) 40 mg Q12HR ORAL 01/13/20 09:00 02/12/20 06:29 01/14/20 21:06 Sodium Chloride 1,000 ml @ 50 mls/hr Q20H IV 01/14/20 10:00 02/13/20 09:59 01/15/20 06:10 Last 24 Hour Vital Signs Date Time Temp Pulse Resp B/P (MAP) Pulse Ox O2 Delivery O2 Flow Rate FiO2 01/15/20 04:00 54 01/15/20 04:00 97.8 68 19 144/66 (92) 96 01/15/20 00:00 59 01/15/20 00:00 97.3 59 19 140/64 (89) 94 01/14/20 21:06 74 139/63 01/14/20 21:00 Room Air 01/14/20 20:00 98.7 74 19 139/63 (88) 97 01/14/20 20:00 74 01/14/20 18:13 69 01/14/20 16:00 98.2 66 18 142/66 (91) 95 01/14/20 12:00 67 01/14/20 12:00 99.1 66 18 137/58 (84) 98 01/14/20 09:24 71 139/64 01/14/20 08:44 Room Air 01/14/20 08:00 99.1 71 18 139/64 (89) 97 01/14/20 08:00 62 01/14/20 04:00 96.8 67 18 135/62 (86) 96 01/14/20 04:00 59 01/14/20 00:00 98.1 71 19 140/67 (91) 95 01/14/20 00:00 72 01/13/20 21:00 Room Air 01/13/20 20:30 81 141/71 01/13/20 20:00 97.7 81 18 141/71 (94) 98 01/13/20 20:00 99 01/13/20 16:00 72 01/13/20 16:00 97.8 73 18 139/65 (89) 95 01/13/20 13:28 85 140/78 01/13/20 12:00 97.7 88 18 146/64 (91) 95 01/13/20 12:00 80 01/13/20 09:00 Room Air Intake and Output 01/14/20 01/15/20 19:00 07:00 Intake Total 390 ml 350 ml Output Total 600 ml Balance 390 ml -250 ml Intake Oral 390 ml 350 ml Output Urine Total 600 ml # Voids 1 # Bowel Movements 1 Labs Test 01/12/20 13:40 01/12/20 14:35 01/12/20 18:20 01/13/20 08:15 White Blood Count 9.3 K/UL (4.8-10.8) 7.4 K/UL (4.8-10.8) Red Blood Count 4.08 M/UL (4.20-5.40) 3.57 M/UL (4.20-5.40) Hemoglobin 13.2 G/DL (12.0-16.0) 11.4 G/DL (12.0-16.0) Hematocrit 37.6 % (37.0-47.0) 33.0 % (37.0-47.0) Mean Corpuscular Volume 92 FL (80-99) 93 FL (80-99) Mean Corpuscular Hemoglobin 32.4 PG (27.0-31.0) 32.0 PG (27.0-31.0) Mean Corpuscular Hemoglobin Concent 35.1 G/DL (32.0-36.0) 34.6 G/DL (32.0-36.0) Red Cell Distribution Width 13.9 % (11.6-14.8) 14.2 % (11.6-14.8) Platelet Count 171 K/UL (150-450) 137 K/UL (150-450) Mean Platelet Volume 6.3 FL (6.5-10.1) 6.2 FL (6.5-10.1) Neutrophils (%) (Auto) % (45.0-75.0) 82.7 % (45.0-75.0) Lymphocytes (%) (Auto) % (20.0-45.0) 5.1 % (20.0-45.0) Monocytes (%) (Auto) % (1.0-10.0) 11.9 % (1.0-10.0) Eosinophils (%) (Auto) % (0.0-3.0) 0.0 % (0.0-3.0) Basophils (%) (Auto) % (0.0-2.0) 0.2 % (0.0-2.0) Differential Total Cells Counted 100 Neutrophils % (Manual) 82 % (45-75) Lymphocytes % (Manual) 7 % (20-45) Monocytes % (Manual) 10 % (1-10) Eosinophils % (Manual) 0 % (0-3) Basophils % (Manual) 0 % (0-2) Band Neutrophils 1 % (0-8) Platelet Estimate Adequate Platelet Morphology Normal Red Blood Cell Morphology Normal Prothrombin Time 10.8 SEC (9.30-11.50) Prothromb Time International Ratio 1.0 (0.9-1.1) Activated Partial Thromboplast Time 37 SEC (23-33) D-Dimer 5.04 mg/L FEU (0.00-0.49) Sodium Level 142 MMOL/L (136-145) 143 MMOL/L (136-145) Potassium Level 4.0 MMOL/L (3.5-5.1) 3.4 MMOL/L (3.5-5.1) Chloride Level 101 MMOL/L (98-107) 105 MMOL/L (98-107) Carbon Dioxide Level 25 MMOL/L (21-32) 26 MMOL/L (21-32) Anion Gap 16 mmol/L (5-15) 12 mmol/L (5-15) Blood Urea Nitrogen 33 mg/dL (7-18) 37 mg/dL (7-18) Creatinine 1.5 MG/DL (0.55-1.30) 1.5 MG/DL (0.55-1.30) Estimat Glomerular Filtration Rate 33.4 mL/min (>60) 40.5 mL/min (>60) Glucose Level 131 MG/DL (74-106) 108 MG/DL (74-106) Lactic Acid Level 2.10 mmol/L (0.4-2.0) 2.30 mmol/L (0.66-2.22) Calcium Level 10.1 MG/DL (8.5-10.1) 9.2 MG/DL (8.5-10.1) Ferritin 887 NG/ML (8-388) Total Bilirubin 1.2 MG/DL (0.2-1.0) 0.7 MG/DL (0.2-1.0) Direct Bilirubin 0.4 MG/DL (0.0-0.3) Aspartate Amino Transf (AST/SGOT) 24 U/L (15-37) 35 U/L (15-37) Alanine Aminotransferase (ALT/SGPT) 15 U/L (12-78) 17 U/L (12-78) Alkaline Phosphatase 73 U/L (46-116) 68 U/L (46-116) Lactate Dehydrogenase 486 U/L (81-234) Total Creatine Kinase 344 U/L (26-308) 208 U/L (26-308) Creatine Kinase MB 1.4 NG/ML (0.0-3.6) Creatine Kinase MB Relative Index 0.4 Troponin I 0.004 ng/mL (0.000-0.056) 0.032 ng/mL (0.000-0.056) C-Reactive Protein, Quantitative 25.4 mg/dL (0.00-0.90) 30.5 mg/dL (0.00-0.90) Pro-B-Type Natriuretic Peptide 1982 pg/mL (0-125) 2423 pg/mL (0-125) Total Protein 9.0 G/DL (6.4-8.2) 7.6 G/DL (6.4-8.2) Albumin 3.8 G/DL (3.4-5.0) 2.9 G/DL (3.4-5.0) Globulin 5.2 g/dL 4.7 g/dL Albumin/Globulin Ratio 0.7 (1.0-2.7) 0.6 (1.0-2.7) Urine Color Arlyn Urine Appearance Slightly cloudy Urine pH 5 (4.5-8.0) Urine Specific [place] 1.020 (1.005-1.035) Urine Protein 3+ (NEGATIVE) Urine Glucose (UA) Negative (NEGATIVE) Urine Ketones 1+ (NEGATIVE) Urine Blood 5+ (NEGATIVE) Urine Nitrite Negative (NEGATIVE) Urine Bilirubin Negative (NEGATIVE) Urine Ictotest Negative (NEGATIVE) Urine Urobilinogen Normal MG/DL (0.0-1.0) Urine Leukocyte Esterase 3+ (NEGATIVE) Urine RBC 15-20 /HPF (0 - 2) Urine WBC Tntc /HPF (0 - 2) Urine Squamous Epithelial Cells Moderate /LPF (NONE/OCC) Urine Bacteria Many /HPF (NONE) Hemoglobin A1c 5.8 % (4.3-6.0) Uric Acid 4.3 MG/DL (2.6-7.2) Phosphorus Level 3.0 MG/DL (2.5-4.9) Magnesium Level 1.8 MG/DL (1.8-2.4) Gamma Glutamyl Transpeptidase 22 U/L (5-85) Triglycerides Level 162 MG/DL (30-150) Cholesterol Level 145 MG/DL (< 200) LDL Cholesterol 89 mg/dL (<100) HDL Cholesterol 22 MG/DL (40-60) Cholesterol/HDL Ratio 6.6 (3.3-4.4) Vitamin B12 Level > 2000 PG/ML (193-986) Folate 20.4 NG/ML (8.6-58.9) Thyroid Stimulating Hormone (TSH) 0.486 uiU/mL (0.358-3.740) HIV (1&2) Antibody Rapid Negative (NEGATIVE) Test 01/13/20 09:30 01/13/20 18:30 01/14/20 06:11 01/15/20 05:49 D-Dimer 3.22 mg/L FEU (0.00-0.49) Hepatitis A IgM Antibody Negative (Negative) Hepatitis B Surface Antigen Negative (Negative) Hepatitis B Core IgM Antibody Negative (Negative) Hepatitis C Antibody <0.1 s/co ratio Sodium Level 141 MMOL/L (136-145) 138 MMOL/L (136-145) Potassium Level 4.4 MMOL/L (3.5-5.1) 3.8 MMOL/L (3.5-5.1) Chloride Level 104 MMOL/L (98-107) 102 MMOL/L (98-107) Carbon Dioxide Level 24 MMOL/L (21-32) 26 MMOL/L (21-32) Anion Gap 13 mmol/L (5-15) 10 mmol/L (5-15) Blood Urea Nitrogen 30 mg/dL (7-18) 21 mg/dL (7-18) Creatinine 0.9 MG/DL (0.55-1.30) 0.9 MG/DL (0.55-1.30) Estimat Glomerular Filtration Rate > 60 mL/min (>60) > 60 mL/min (>60) Glucose Level 85 MG/DL (74-106) 85 MG/DL (74-106) Calcium Level 8.8 MG/DL (8.5-10.1) 8.9 MG/DL (8.5-10.1) Total Bilirubin 0.9 MG/DL (0.2-1.0) 0.8 MG/DL (0.2-1.0) Aspartate Amino Transf (AST/SGOT) 39 U/L (15-37) 28 U/L (15-37) Alanine Aminotransferase (ALT/SGPT) 23 U/L (12-78) 20 U/L (12-78) Alkaline Phosphatase 62 U/L (46-116) 59 U/L (46-116) Total Protein 6.3 G/DL (6.4-8.2) 6.6 G/DL (6.4-8.2) Albumin 2.6 G/DL (3.4-5.0) 2.3 G/DL (3.4-5.0) Globulin 3.7 g/dL 4.3 g/dL Albumin/Globulin Ratio 0.7 (1.0-2.7) 0.5 (1.0-2.7) White Blood Count 5.8 K/UL (4.8-10.8) Red Blood Count 3.46 M/UL (4.20-5.40) Hemoglobin 11.0 G/DL (12.0-16.0) Hematocrit 31.8 % (37.0-47.0) Mean Corpuscular Volume 92 FL (80-99) Mean Corpuscular Hemoglobin 31.9 PG (27.0-31.0) Mean Corpuscular Hemoglobin Concent 34.7 G/DL (32.0-36.0) Red Cell Distribution Width 13.8 % (11.6-14.8) Platelet Count 132 K/UL (150-450) Mean Platelet Volume 6.5 FL (6.5-10.1) Neutrophils (%) (Auto) 73.6 % (45.0-75.0) Lymphocytes (%) (Auto) 11.3 % (20.0-45.0) Monocytes (%) (Auto) 13.4 % (1.0-10.0) Eosinophils (%) (Auto) 1.2 % (0.0-3.0) Basophils (%) (Auto) 0.5 % (0.0-2.0) Phosphorus Level 3.0 MG/DL (2.5-4.9) Iron Level 83 ug/dL (50-175) Total Iron Binding Capacity 150 ug/dL (250-450) Percent Iron Saturation 55 % (15-50) Unsaturated Iron Binding 67 ug/dL (112-346) Ferritin 1174 NG/ML (8-388) C-Reactive Protein, Quantitative 16.3 mg/dL (0.00-0.90) Pro-B-Type Natriuretic Peptide 1229 pg/mL (0-125) Height (Feet): 5 Height (Inches): 6.00 Weight (Pounds): 123 Objective PE: Vitals: reviewed General Appearance: NAD HEENT: normocephalic, atraumatic Respiratory/Chest: normal breath sounds bilaterally Cardiovascular/Chest: normal peripheral pulses, normal rate, no mgr Abdomen: normal bowel sounds, soft, nontender Extremities: normal range of motion Morris Mohamud MD January 15, 2020 08:21
[2020-01-15] MEDS: Azithromycin 500 MG in D5W 275 ML IV SCH (09:00)
[2020-01-15] MEDS: Docusate 100mg cap ORAL SCH ×3 (09:00→17:56)
[2020-01-15] MEDS ORDERED: Enoxaparin 40mg Inj SUBQ SCH (09:19)
[2020-01-15] MEDS: Meropenem 1 GM in NS 55 ML IVPB SCH (09:48)
--- NOTE | 2020-01-15 11:22 | NUR ---
CASE MANAGEMENT:REVIEW 01/15/20 SI: ACUTE METABOLIC ENCEPHALOPATHY SEPSIS... E COLI BACTEREMIA/UTICOVID 19 NOT DETECTED 97.9 74 18 136/62 95% ON RA H/H-11.0/31.8 PLT-132 BUN+21 IS: IV MEROPENEM Q12 IV AZITHROMYCIN QD IVF@50/HR LOPRESSOR PO Q12 COLACE PO TID PROTONIX PO Q12 : TELEMETRY STATUS DCP: FROM HOME PLAN: PT EVAL DC ISOLATION
--- NOTE | 2020-01-15 11:25 | General Progress Note ---
Assessment/Plan Status: stable Assessment/Plan: S: I am ok O: denies any chest pain or sob PHYSICAL EXAMINATION:HEAD AND NECK: Atraumatic and normocephalic. CHEST: Clear to auscultation.HEART: S1, S2. Regular rate and rhythm. ABDOMEN: Soft. No organomegaly.MUSCULOSKELETAL: No gross lateralized motor deficit. NEUROLOGIC: The patient is alert and oriented x3. LABORATORY DATA: Labs dated January 13 reviewed IMAGING: Chest x-ray, dated January [address] scan of the chest is unremarkable for acute lung disease. Head CT scan is negative for any acute pathology. ASSESSMENT AND PLAN: 1. Acute metabolic encephalopathy. 2. Sepsis: Gram negative UTI. 3. Dementia. 4. Hypertension. 5. Anemia. 6. Thrombocytopenia. 7. Renal failure, age indeterminate. 9. Abnormal BNP. 10. GI and DVT prophylaxis. PLAN OF CARE: Culture-Targeted abx regiments current isolation DC heparin sc, initiate SCD instead Subjective Allergies: Coded Allergies: PENICILLINS (Verified Allergy, Unknown, 01/12/20) Objective Last 24 Hour Vital Signs Date Time Temp Pulse Resp B/P (MAP) Pulse Ox O2 Delivery O2 Flow Rate FiO2 01/15/20 09:00 84 136/62 01/15/20 08:22 Room Air 01/15/20 08:00 97.9 75 18 136/62 (86) 95 01/15/20 08:00 74 01/15/20 04:00 54 01/15/20 04:00 97.8 68 19 144/66 (92) 96 01/15/20 00:00 59 01/15/20 00:00 97.3 59 19 140/64 (89) 94 01/14/20 21:06 74 139/63 01/14/20 21:00 Room Air 01/14/20 20:00 98.7 74 19 139/63 (88) 97 01/14/20 20:00 74 01/14/20 18:13 69 01/14/20 16:00 98.2 66 18 142/66 (91) 95 01/14/20 12:00 67 01/14/20 12:00 99.1 66 18 137/58 (84) 98 Intake and Output 01/14/20 01/15/20 19:00 07:00 Intake Total 390 ml 350 ml Output Total 600 ml Balance 390 ml -250 ml Intake Oral 390 ml 350 ml Output Urine Total 600 ml # Voids 1 # Bowel Movements 1 Laboratory Tests 01/15/20 05:49: White Blood Count 5.8, Red Blood Count 3.46L, Hemoglobin 11.0L, Hematocrit 31.8L , Mean Corpuscular Volume 92, Mean Corpuscular Hemoglobin 31.9H, Mean Corpuscular Hemoglobin Concent 34.7, Red Cell Distribution Width 13.8, Platelet Count 132L, Mean Platelet Volume 6.5, Neutrophils (%) (Auto) 73.6, Lymphocytes ( %) (Auto) 11.3L, Monocytes (%) (Auto) 13.4H, Eosinophils (%) (Auto) 1.2, Basophils (%) (Auto) 0.5, Sodium Level 138, Potassium Level 3.8, Chloride Level 102, Carbon Dioxide Level 26, Anion Gap 10, Blood Urea Nitrogen 21H, Creatinine 0.9, Estimat Glomerular Filtration Rate > 60, Glucose Level 85, Calcium Level 8.9, Phosphorus Level 3.0, Iron Level 83, Total Iron Binding Capacity 150L, Percent Iron Saturation 55H, Unsaturated Iron Binding 67L, Ferritin 1174H, Total Bilirubin 0.8, Aspartate Amino Transf (AST/SGOT) 28, Alanine Aminotransferase (ALT/SGPT) 20, Alkaline Phosphatase 59, C-Reactive Protein, Quantitative 16.3H, Pro-B-Type Natriuretic Peptide 1229H, Total Protein 6.6, Albumin 2.3L, Globulin 4.3, Albumin/Globulin Ratio 0.5L Height (Feet): 5 Height (Inches): 6.00 Weight (Pounds): 123 Pina Weber MD January 15, 2020 11:25
--- NOTE | 2020-01-15 11:54 | Nephrology Progress Note ---
Assessment/Plan Problem List: (1) HONEY (acute kidney injury) Assessment: Resolved (2) Dehydration (3) UTI (urinary tract infection) (4) COVID-19 ruled out Assessment Elevated BUN/creatinine most likely dehydration UTI Encephalopathy which most likely toxic metabolic Rule out COVID 19 infection, Patient has elevated ferritin and LDH and lactate Plan Stable Stop IV fluid Monitor renal parameters, at this time serum creatinine normalized Per ID advice Per orders Subjective ROS Limited/Unobtainable: No Constitutional: Reports: malaise Objective Objective Last 24 Hour Vital Signs Date Time Temp Pulse Resp B/P (MAP) Pulse Ox O2 Delivery O2 Flow Rate FiO2 01/15/20 09:00 84 136/62 01/15/20 08:22 Room Air 01/15/20 08:00 97.9 75 18 136/62 (86) 95 01/15/20 08:00 74 01/15/20 04:00 54 01/15/20 04:00 97.8 68 19 144/66 (92) 96 01/15/20 00:00 59 01/15/20 00:00 97.3 59 19 140/64 (89) 94 01/14/20 21:06 74 139/63 01/14/20 21:00 Room Air 01/14/20 20:00 98.7 74 19 139/63 (88) 97 01/14/20 20:00 74 01/14/20 18:13 69 01/14/20 16:00 98.2 66 18 142/66 (91) 95 01/14/20 12:00 67 01/14/20 12:00 99.1 66 18 137/58 (84) 98 Intake and Output 01/14/20 01/15/20 19:00 07:00 Intake Total 390 ml 350 ml Output Total 600 ml Balance 390 ml -250 ml Intake Oral 390 ml 350 ml Output Urine Total 600 ml # Voids 1 # Bowel Movements 1 Laboratory Tests 01/15/20 05:49: White Blood Count 5.8, Red Blood Count 3.46L, Hemoglobin 11.0L, Hematocrit 31.8L , Mean Corpuscular Volume 92, Mean Corpuscular Hemoglobin 31.9H, Mean Corpuscular Hemoglobin Concent 34.7, Red Cell Distribution Width 13.8, Platelet Count 132L, Mean Platelet Volume 6.5, Neutrophils (%) (Auto) 73.6, Lymphocytes ( %) (Auto) 11.3L, Monocytes (%) (Auto) 13.4H, Eosinophils (%) (Auto) 1.2, Basophils (%) (Auto) 0.5, Sodium Level 138, Potassium Level 3.8, Chloride Level 102, Carbon Dioxide Level 26, Anion Gap 10, Blood Urea Nitrogen 21H, Creatinine 0.9, Estimat Glomerular Filtration Rate > 60, Glucose Level 85, Calcium Level 8.9, Phosphorus Level 3.0, Iron Level 83, Total Iron Binding Capacity 150L, Percent Iron Saturation 55H, Unsaturated Iron Binding 67L, Ferritin 1174H, Total Bilirubin 0.8, Aspartate Amino Transf (AST/SGOT) 28, Alanine Aminotransferase (ALT/SGPT) 20, Alkaline Phosphatase 59, C-Reactive Protein, Quantitative 16.3H, Pro-B-Type Natriuretic Peptide 1229H, Total Protein 6.6, Albumin 2.3L, Globulin 4.3, Albumin/Globulin Ratio 0.5L Height (Feet): 5 Height (Inches): 6.00 Weight (Pounds): 123 General Appearance: no apparent distress Cardiovascular: bradycardia Respiratory/Chest: decreased breath sounds Abdomen: soft Densi Begum MD January 15, 2020 11:54
--- NOTE | 2020-01-15 16:35 | Infectious Diseases Prog Note ---
Assessment/Plan Problems: (1) UTI (urinary tract infection) Assessment & Plan: complicated with sepsis suspect pyelonephritis, due to E coli , will switch antibiotics to ceftriaxone and treat for two weeks, repeat blood culture to confirm clearance (2) COVID-19 ruled out Assessment & Plan: may remove from enhanced droplet isolation since PCR test was negative (3) Sepsis Assessment & Plan: suspect due to the above with pyelonephritis due to E coli , will switch to ceftriaxone for two weeks and repeat blood culture x 2 (4) Altered level of consciousness Assessment & Plan: due to the above , continue supportive care and antibiotics pending cultures Subjective Constitutional: Reports: no symptoms HEENT: Reports: no symptoms Respiratory: Reports: no symptoms Breasts: Reports: no symptoms Cardiovascular: Reports: no symptoms Gastrointestinal/Abdominal: Reports: no symptoms Genitourinary: Reports: no symptoms Neurologic: Reports: no symptoms Psychiatric: Reports: no symptoms Skin: Reports: no symptoms Endocrine: Reports: no symptoms Hematologic: Reports: no symptoms Musculoskeletal: Reports: no symptoms Allergies: Coded Allergies: PENICILLINS (Verified Allergy, Unknown, 01/12/20) Subjective she was more awake and coherent responsive well to verbal command denied any cough or shortness of breath no fever or chills Objective Vital Signs Last 24 Hour Vital Signs Date Time Temp Pulse Resp B/P (MAP) Pulse Ox O2 Delivery O2 Flow Rate FiO2 01/15/20 12:00 98.2 66 18 131/67 (88) 98 01/15/20 12:00 65 01/15/20 09:00 84 136/62 01/15/20 08:22 Room Air 01/15/20 08:00 97.9 75 18 136/62 (86) 95 01/15/20 08:00 74 01/15/20 04:00 54 01/15/20 04:00 97.8 68 19 144/66 (92) 96 01/15/20 00:00 59 01/15/20 00:00 97.3 59 19 140/64 (89) 94 01/14/20 21:06 74 139/63 01/14/20 21:00 Room Air 01/14/20 20:00 98.7 74 19 139/63 (88) 97 01/14/20 20:00 74 01/14/20 18:13 69 Height (Feet): 5 Height (Inches): 6.00 Weight (Pounds): 123 General Appearance: WD/WN, no acute distress HEENT: normocephalic, atraumatic, anicteric, mucous membranes moist, PERRL Respiratory/Chest: chest wall non-tender, lungs clear, normal breath sounds, no respiratory distress, no accessory muscle use Cardiovascular: normal peripheral pulses, normal rate, regular rhythm, no gallop/murmur, no JVD Abdomen: normal bowel sounds, soft, non tender, no organomegaly, non distended , no mass, no scars Genitourinary: normal external genitalia Extremities: no cyanosis, no clubbing Skin: no rash, no lesions, no ulcers Neurologic/Psychiatric: judicial law clerk II-XII grossly normal, alert, oriented x 3, responsive Lymphatic: no neck adenopathy, no groin adenopathy Musculoskeletal: normal muscle bulk, no effusion Microbiology Date/Time Source Procedure Growth Status 01/12/20 17:50 Nasal Nares MRSA Culture - Final NO METHICILLIN RESISTANT STAPH AUREUS... Complete 01/12/20 17:50 Rectum - Final NO CARBAPENEM-RESISTANT ENTEROBACTERI... Complete 01/12/20 17:50 Rectum VRE Culture - Final NO VANCOMYCIN RESISTANT ENTEROCOCCUS ... Complete Laboratory Tests Test 01/15/20 05:49 White Blood Count 5.8 K/UL (4.8-10.8) Red Blood Count 3.46 M/UL (4.20-5.40) L Hemoglobin 11.0 G/DL (12.0-16.0) L Hematocrit 31.8 % (37.0-47.0) L Mean Corpuscular Volume 92 FL (80-99) Mean Corpuscular Hemoglobin 31.9 PG (27.0-31.0) H Mean Corpuscular Hemoglobin Concent 34.7 G/DL (32.0-36.0) Red Cell Distribution Width 13.8 % (11.6-14.8) Platelet Count 132 K/UL (150-450) L Mean Platelet Volume 6.5 FL (6.5-10.1) Neutrophils (%) (Auto) 73.6 % (45.0-75.0) Lymphocytes (%) (Auto) 11.3 % (20.0-45.0) L Monocytes (%) (Auto) 13.4 % (1.0-10.0) H Eosinophils (%) (Auto) 1.2 % (0.0-3.0) Basophils (%) (Auto) 0.5 % (0.0-2.0) Sodium Level 138 MMOL/L (136-145) Potassium Level 3.8 MMOL/L (3.5-5.1) Chloride Level 102 MMOL/L (98-107) Carbon Dioxide Level 26 MMOL/L (21-32) Anion Gap 10 mmol/L (5-15) Blood Urea Nitrogen 21 mg/dL (7-18) H Creatinine 0.9 MG/DL (0.55-1.30) Estimat Glomerular Filtration Rate > 60 mL/min (>60) Glucose Level 85 MG/DL (74-106) Calcium Level 8.9 MG/DL (8.5-10.1) Phosphorus Level 3.0 MG/DL (2.5-4.9) Iron Level 83 ug/dL (50-175) Total Iron Binding Capacity 150 ug/dL (250-450) L Percent Iron Saturation 55 % (15-50) H Unsaturated Iron Binding 67 ug/dL (112-346) L Ferritin 1174 NG/ML (8-388) H Total Bilirubin 0.8 MG/DL (0.2-1.0) Aspartate Amino Transf (AST/SGOT) 28 U/L (15-37) Alanine Aminotransferase (ALT/SGPT) 20 U/L (12-78) Alkaline Phosphatase 59 U/L (46-116) C-Reactive Protein, Quantitative 16.3 mg/dL (0.00-0.90) H Pro-B-Type Natriuretic Peptide 1229 pg/mL (0-125) H Total Protein 6.6 G/DL (6.4-8.2) Albumin 2.3 G/DL (3.4-5.0) L Globulin 4.3 g/dL Albumin/Globulin Ratio 0.5 (1.0-2.7) L Current Medications Medications (Trade) Dose Ordered Sig/Paula Route PRN Reason Start Time Stop Time Status Last Admin Dose Admin Acetaminophen (Tylenol) 650 mg Q6H PRN ORAL Fever >100.5/mild pain 01/12/20 21:00 02/11/20 20:59 Albuterol/ Ipratropium (Albuterol/ Ipratropium) 3 ml Q4H PRN HHN Shortness of Breath 01/12/20 21:00 01/17/20 20:59 Azithromycin 500 mg/Dextrose 275 ml @ 275 mls/hr DAILY IV 01/13/20 09:00 01/18/20 08:59 01/15/20 09:00 Docusate Sodium (Colace) 100 mg THREE TIMES A DAY ORAL 01/13/20 09:00 02/12/20 08:59 01/13/20 17:54 Hydralazine HCl (Apresoline) 25 mg Q4H PRN ORAL Blood pressure over 160 systol 01/13/20 07:55 04/12/20 07:54 Meropenem 1 gm/ Sodium Chloride 55 ml @ 110 mls/hr Q12HR IVPB 01/14/20 14:00 01/19/20 13:59 01/15/20 09:48 Metoprolol Tartrate (Lopressor) 25 mg Q12HR ORAL 01/13/20 12:00 04/12/20 11:59 01/15/20 09:00 Ondansetron HCl (Zofran) 4 mg Q6H PRN IVP Nausea & Vomiting 01/12/20 21:00 02/11/20 20:59 Pantoprazole (Protonix) 40 mg Q12HR ORAL 01/13/20 09:00 02/12/20 06:29 01/15/20 09:00 Kieran Franco M.D. January 15, 2020 16:35
[2020-01-15] MEDS: cefTRIAXone 2 GM in D5W 55 ML IVPB SCH (17:55)
--- NOTE | 2020-01-15 19:44 | NUR ---
HAND-OFF: Report given to Marga/RN, pt in stable condition.
--- NOTE | 2020-01-15 20:00 | NUR ---
NURSE NOTES: RECEIVED PATIENT LYING IN BED, AWAKE, ALERT/ORIENTED X3, VERBALLY RESPONSIVE, DENIES PAIN. NO SIGNS AND SYMPTOMS OF ACUTE CARDIO RESPIRATORY DISTRESS/SHORTNESS OF BREATH, DENIES CHEST PAIN, CONTINUE ON DEAF/HARD OF HEARING SPECIALIST. IV INTACT TO RIGHT FOREARM/GAUGE 20, NO REDNESS/SWELLING NOTED, DENIES PAIN UPON FLUSHING. NO COMPLAINTS OF GI DISCOMFORT, NO N/V/D, AUDIBLE BOWEL SOUNDS; PURE WICK INTACT, DRAINING YELLOW URINE VIA SUCTION, NO SIGNS OF HEMATURIA. SIDE RAILS UP X3/BED IN LOWEST POSITION FOR SAFETY, ENCOURAGED PATIENT TO UTILIZE CALL LIGHT FOR ASSISTANCE, VERBALIZED UNDERSTANDING. CONTINUE WITH CURRENT PLAN OF CARE. NAD.
--- NOTE | 2020-01-15 22:08 | Cardiology Progress Note ---
Assessment/Plan Assessment/Plan 1. Dyspnea, Chest x-ray does not show an overt pulmonary edema. 2D echocardiography shows normal LV systolic function with LVEF at 65%, negative COVID-19 infection. 2. Hypertension, continue metoprolol and amlodipine. 3. HONEY, resolved. 4. Dyslipidemia. Subjective Subjective Sinus rhythm at rate of 72. Objective Last 24 Hour Vital Signs Date Time Temp Pulse Resp B/P (MAP) Pulse Ox O2 Delivery O2 Flow Rate FiO2 01/15/20 21:14 72 149/66 01/15/20 21:00 Room Air 01/15/20 20:00 77 01/15/20 20:00 97.6 72 19 144/73 (96) 96 01/15/20 16:00 99.1 76 18 129/66 (87) 98 01/15/20 16:00 77 01/15/20 12:00 98.2 66 18 131/67 (88) 98 01/15/20 12:00 65 01/15/20 09:00 84 136/62 01/15/20 08:22 Room Air 01/15/20 08:00 97.9 75 18 136/62 (86) 95 01/15/20 08:00 74 01/15/20 04:00 54 01/15/20 04:00 97.8 68 19 144/66 (92) 96 01/15/20 00:00 59 01/15/20 00:00 97.3 59 19 140/64 (89) 94 Intake and Output 01/14/20 01/15/20 19:00 07:00 Intake Total 390 ml 350 ml Output Total 600 ml Balance 390 ml -250 ml Intake Oral 390 ml 350 ml Output Urine Total 600 ml # Voids 1 # Bowel Movements 1 2D Echo: EF 65%, Grade I LVDD, RVSP 39 mmHg, MIld MR Laboratory Tests Test 01/15/20 05:49 White Blood Count 5.8 K/UL (4.8-10.8) Red Blood Count 3.46 M/UL (4.20-5.40) L Hemoglobin 11.0 G/DL (12.0-16.0) L Hematocrit 31.8 % (37.0-47.0) L Mean Corpuscular Volume 92 FL (80-99) Mean Corpuscular Hemoglobin 31.9 PG (27.0-31.0) H Mean Corpuscular Hemoglobin Concent 34.7 G/DL (32.0-36.0) Red Cell Distribution Width 13.8 % (11.6-14.8) Platelet Count 132 K/UL (150-450) L Mean Platelet Volume 6.5 FL (6.5-10.1) Neutrophils (%) (Auto) 73.6 % (45.0-75.0) Lymphocytes (%) (Auto) 11.3 % (20.0-45.0) L Monocytes (%) (Auto) 13.4 % (1.0-10.0) H Eosinophils (%) (Auto) 1.2 % (0.0-3.0) Basophils (%) (Auto) 0.5 % (0.0-2.0) Sodium Level 138 MMOL/L (136-145) Potassium Level 3.8 MMOL/L (3.5-5.1) Chloride Level 102 MMOL/L (98-107) Carbon Dioxide Level 26 MMOL/L (21-32) Anion Gap 10 mmol/L (5-15) Blood Urea Nitrogen 21 mg/dL (7-18) H Creatinine 0.9 MG/DL (0.55-1.30) Estimat Glomerular Filtration Rate > 60 mL/min (>60) Glucose Level 85 MG/DL (74-106) Calcium Level 8.9 MG/DL (8.5-10.1) Phosphorus Level 3.0 MG/DL (2.5-4.9) Iron Level 83 ug/dL (50-175) Total Iron Binding Capacity 150 ug/dL (250-450) L Percent Iron Saturation 55 % (15-50) H Unsaturated Iron Binding 67 ug/dL (112-346) L Ferritin 1174 NG/ML (8-388) H Total Bilirubin 0.8 MG/DL (0.2-1.0) Aspartate Amino Transf (AST/SGOT) 28 U/L (15-37) Alanine Aminotransferase (ALT/SGPT) 20 U/L (12-78) Alkaline Phosphatase 59 U/L (46-116) C-Reactive Protein, Quantitative 16.3 mg/dL (0.00-0.90) H Pro-B-Type Natriuretic Peptide 1229 pg/mL (0-125) H Total Protein 6.6 G/DL (6.4-8.2) Albumin 2.3 G/DL (3.4-5.0) L Globulin 4.3 g/dL Albumin/Globulin Ratio 0.5 (1.0-2.7) L Objective HEENT: Atraumatic and normocephalic. Anicteric. Pupils are equal, round, and reactive to light and accommodation. Extraocular muscles intact. NECK: JVP less than 5 cm. No carotid bruit. Carotid upstrokes 2+ bilaterally. CARDIOVASCULAR: Normal S1, S2. Regular rate and rhythm. No murmurs, gallops, or rubs. PMI is at fourth intercostal space in the midclavicular line. LUNGS: Clear to auscultation bilaterally. ABDOMEN: Soft, nontender, nondistended. No hepatosplenomegaly. Positive bowel sounds. EXTREMITIES: No evidence of edema, clubbing, or cyanosis. There is positive calf tenderness in both legs. Thuan Cortes MD January 15, 2020 22:08
[2020-01-16] VITALS: BP 134/60
[2020-01-16 04:00] VITALS: BP 139/66
--- NOTE | 2020-01-16 06:28 | NUR ---
NURSE NOTES: RESTED WELL, NO SIGNIFICANT CHANGE OF CONDITION NOTED THROUGHOUT THE NIGHT. SAFETY MAINTAINED. NAD.
--- NOTE | 2020-01-16 07:26 | NUR ---
HAND-OFF: Report given to MEHRDAD FINCH.
[2020-01-16 08:00] VITALS: BP 135/58
--- NOTE | 2020-01-16 08:10 | NUR ---
NURSE NOTES: Received report from HILARIA Brody. Pt alert A/Ox 3. Pt sitting up eating breakfast. No S/S of distress. Respirations even and unlabored. Bed low. Side rails up x2, call light within reach. Will continue plan of care.
[2020-01-16] MEDS: Docusate 100mg cap ORAL SCH ×3 (09:40→18:29)
[2020-01-16] MEDS ORDERED: BETIMOL5 M2 OP (10:27)
[2020-01-16] MEDS ORDERED: BETIMOL5 M2 RIGHT EYE (10:29)
--- NOTE | 2020-01-16 10:52 | Nephrology Progress Note ---
Assessment/Plan Problem List: (1) HONEY (acute kidney injury) Assessment: Resolved (2) Dehydration (3) UTI (urinary tract infection) (4) COVID-19 ruled out Assessment Elevated BUN/creatinine most likely dehydration UTI Encephalopathy which most likely toxic metabolic Rule out COVID 19 infection, Patient has elevated ferritin and LDH and lactate Plan Stable- Check labs tomorrow Stop IV fluid Monitor renal parameters, at this time serum creatinine normalized Per ID advice Per orders Subjective ROS Limited/Unobtainable: No Constitutional: Reports: malaise Objective Objective Last 24 Hour Vital Signs Date Time Temp Pulse Resp B/P (MAP) Pulse Ox O2 Delivery O2 Flow Rate FiO2 01/16/20 09:41 77 135/58 01/16/20 09:41 77 135/58 01/16/20 08:00 97.9 84 18 135/58 (83) 95 01/16/20 08:00 77 01/16/20 04:00 97.9 66 18 139/66 (90) 98 01/16/20 04:00 57 01/16/20 00:00 56 01/16/20 00:00 98.2 61 19 134/60 (84) 98 01/15/20 21:14 72 149/66 01/15/20 21:00 Room Air 01/15/20 20:00 77 01/15/20 20:00 97.6 72 19 144/73 (96) 96 01/15/20 16:00 99.1 76 18 129/66 (87) 98 01/15/20 16:00 77 01/15/20 12:00 98.2 66 18 131/67 (88) 98 01/15/20 12:00 65 Intake and Output 01/15/20 01/16/20 19:00 07:00 Intake Total 870 ml 120 ml Output Total 600 ml Balance 270 ml 120 ml Intake Oral 870 ml 120 ml Output Urine Total 600 ml # Voids 3 No labs drawn today Height (Feet): 5 Height (Inches): 6.00 Weight (Pounds): 123 General Appearance: no apparent distress Cardiovascular: normal rate Respiratory/Chest: decreased breath sounds Abdomen: soft Objective No change Denis Begum MD January 16, 2020 10:52
--- NOTE | 2020-01-16 11:24 | General Progress Note ---
Assessment/Plan Status: stable Assessment/Plan: S: I am ok O: denies any chest pain or sob PHYSICAL EXAMINATION:HEAD AND NECK: Atraumatic and normocephalic. CHEST: Clear to auscultation.HEART: S1, S2. Regular rate and rhythm. ABDOMEN: Soft. No organomegaly.MUSCULOSKELETAL: No gross lateralized motor deficit. NEUROLOGIC: The patient is alert and oriented x3. LABORATORY DATA: Labs dated January 13 reviewed IMAGING: Chest x-ray, dated January [address] scan of the chest is unremarkable for acute lung disease. Head CT scan is negative for any acute pathology. ASSESSMENT AND PLAN: 1. Acute metabolic encephalopathy. 2. Sepsis: Gram negative UTI. 3. Dementia. 4. Hypertension. 5. Anemia. 6. Thrombocytopenia. 7. Renal failure, age indeterminate. 9. Abnormal BNP. 10. GI and DVT prophylaxis. PLAN OF CARE: Culture-Targeted abx regiments DC heparin sc, initiate SCD instead Consult SW Subjective Allergies: Coded Allergies: PENICILLINS (Verified Allergy, Unknown, 01/12/20) Objective Last 24 Hour Vital Signs Date Time Temp Pulse Resp B/P (MAP) Pulse Ox O2 Delivery O2 Flow Rate FiO2 01/16/20 09:41 77 135/58 01/16/20 09:41 77 135/58 01/16/20 09:00 Room Air 01/16/20 08:00 97.9 84 18 135/58 (83) 95 01/16/20 08:00 77 01/16/20 04:00 97.9 66 18 139/66 (90) 98 01/16/20 04:00 57 01/16/20 00:00 56 01/16/20 00:00 98.2 61 19 134/60 (84) 98 01/15/20 21:14 72 149/66 01/15/20 21:00 Room Air 01/15/20 20:00 77 01/15/20 20:00 97.6 72 19 144/73 (96) 96 01/15/20 16:00 99.1 76 18 129/66 (87) 98 01/15/20 16:00 77 01/15/20 12:00 98.2 66 18 131/67 (88) 98 01/15/20 12:00 65 Intake and Output 01/15/20 01/16/20 19:00 07:00 Intake Total 870 ml 120 ml Output Total 600 ml Balance 270 ml 120 ml Intake Oral 870 ml 120 ml Output Urine Total 600 ml # Voids 3 Height (Feet): 5 Height (Inches): 6.00 Weight (Pounds): 123 Pina Weber MD January 16, 2020 11:24
[2020-01-16 12:00] VITALS: BP 138/60
--- NOTE | 2020-01-16 12:21 | NUR ---
LEGAL WORD PROCESSOR NOTE SW received a consult to locate the family. SW met w/ pt and obtained information. Pt presents as A&O 3x and cooperative. PT resides alone at [facility] [id number], [place] [address]. The retail banking manager's name is Mrs. Banegas. Pt is and has no children. Pt has PCP named Dr. Fifi Stephens at [facility]. Pt uses a walker to ambulate and has a major case detective named Renetta at [facility], in progress of getting caregiving service. Pt has adopted sister named Martha Santos [phone] and brother living in [place], named Shona Perez. Pt provided verbal consent to contact Martha Santos [phone] as needed. Addendum: 01/16/20 at 1329 by HARVEY SPEARS ADD: Pt reports she does have AD and expresses DNR and DNI. Addendum: 01/16/20 at 1452 by HARVEY SPEARS As per request, SW spoke w/ Jamaal Lopez equal opportunity representative [phone] and informed of pt's hospitalization.
--- NOTE | 2020-01-16 14:07 | Hematology/Onc Progress Note ---
Assessment/Plan Assessment/Plan Assessment and Recs # Thrombocytopenia - potential causes multifactorial, evaluate liver and viral etiologies to begin, also could be related to underlying medications patient has received. rule out underlying infection UTI --> Hep panel and HIV ordered --> NEG --> US abd to evaluate for cirrhosis and hsm ordered --> Peripheral smear ordered to evaluate for blasts /schistocytes --> abx and other meds have been reviewed --> ok for ppx if plt >50k w/ either heparin or lovenox --> Transfuse if Plt < 20k and fever, or if Plt < 10 without fever --> plt trend: 132 -->121 # Anemia of chronic disease due to underlying chronic medical issues, multifactorial v Gi bleed --> Anemia workup has been ordered, rule out gi bleed --> No evidence of hemolysis is noted, peripheral smear has been reviewed. --> Hgb goal >7. Transfuse prn. --> Epogen or iron at this time is not particularly indicated --> Medications have been reviewed --> low threshold for gi evaluation in case has occult + --> hgb 11 # Coagulopathy likely due to infection, just ptt elev --> consider retesting prn --> vit K prn sq # Altered level of consciousness --> likely toxic metabolic # UTI --> on abx # Thoracic kyphosis # Dvt ppx scds The timing of this note does not necessarily reflect the time of the patient was seen. Greatly appreciate consultation. Subjective Constitutional: Denies: no symptoms, chills, fever, malaise, weakness, other HEENT: Denies: no symptoms, eye pain, blurred vision, tearing, double vision, ear pain, ear discharge, nose pain, nose congestion, throat pain, throat swelling, mouth pain, mouth swelling, other Cardiovascular: Denies: no symptoms, chest pain, edema, irregular heart rate, lightheadedness, palpitations, syncope, other Respiratory: Denies: no symptoms, cough, shortness of breath, SOB with excertion, SOB at rest, sputum, wheezing, other Gastrointestinal/Abdominal: Denies: no symptoms, abdomen distended, abdominal pain, black stools, tarry stools, blood in stool, constipated, diarrhea, difficulty swallowing, nausea, poor appetite, poor fluid intake, rectal bleeding , vomiting, other Genitourinary: Denies: no symptoms, burning, discharge, frequency, flank pain, hematuria, incontinence, pain, urgency, other Neurologic/Psychiatric: Denies: no symptoms, anxiety, depressed, emotional problems, headache, numbness, paresthesia, pre-existing deficit, seizure, tingling, tremors, weakness, other Allergies: Coded Allergies: PENICILLINS (Verified Allergy, Unknown, 01/12/20) All Systems: reviewed and negative except above Subjective 01/14 on tele, no acute events, carol ann/azithro, 01/12 jeimy duplex negative for dvt 01/15 labs noted, no bleeding, meds noted, on abx, scds in place Objective Objective Current Medications Medications (Trade) Dose Ordered Sig/Paula Route PRN Reason Start Time Stop Time Status Last Admin Dose Admin Acetaminophen (Tylenol) 650 mg Q6H PRN ORAL Fever >100.5/mild pain 01/12/20 21:00 02/11/20 20:59 Albuterol/ Ipratropium (Albuterol/ Ipratropium) 3 ml Q4H PRN HHN Shortness of Breath 01/12/20 21:00 01/17/20 20:59 Amlodipine Besylate (Norvasc) 2.5 mg DAILY ORAL 01/16/20 09:00 02/15/20 08:59 01/16/20 09:41 Ceftriaxone Sodium 2 gm/ Dextrose 55 ml @ 110 mls/hr Q24H IVPB 01/15/20 18:00 01/22/20 17:59 01/15/20 17:55 Docusate Sodium (Colace) 100 mg THREE TIMES A DAY ORAL 01/13/20 09:00 02/12/20 08:59 01/16/20 12:36 Hydralazine HCl (Apresoline) 25 mg Q4H PRN ORAL Blood pressure over 160 systol 01/13/20 07:55 04/12/20 07:54 Metoprolol Tartrate (Lopressor) 25 mg Q12HR ORAL 01/13/20 12:00 04/12/20 11:59 01/16/20 09:41 Ondansetron HCl (Zofran) 4 mg Q6H PRN IVP Nausea & Vomiting 01/12/20 21:00 02/11/20 20:59 Pantoprazole (Protonix) 40 mg Q12HR ORAL 01/13/20 09:00 02/12/20 06:29 01/16/20 09:41 Last 24 Hour Vital Signs Date Time Temp Pulse Resp B/P (MAP) Pulse Ox O2 Delivery O2 Flow Rate FiO2 01/16/20 12:00 97.7 63 20 138/60 (86) 99 01/16/20 12:00 69 01/16/20 09:41 77 135/58 01/16/20 09:41 77 135/58 01/16/20 09:00 Room Air 01/16/20 08:00 97.9 84 18 135/58 (83) 95 01/16/20 08:00 77 01/16/20 04:00 97.9 66 18 139/66 (90) 98 01/16/20 04:00 57 01/16/20 00:00 56 01/16/20 00:00 98.2 61 19 134/60 (84) 98 01/15/20 21:14 72 149/66 01/15/20 21:00 Room Air 01/15/20 20:00 77 01/15/20 20:00 97.6 72 19 144/73 (96) 96 01/15/20 16:00 99.1 76 18 129/66 (87) 98 01/15/20 16:00 77 01/15/20 12:00 98.2 66 18 131/67 (88) 98 01/15/20 12:00 65 01/15/20 09:00 84 136/62 01/15/20 08:22 Room Air 01/15/20 08:00 97.9 75 18 136/62 (86) 95 01/15/20 08:00 74 01/15/20 04:00 54 01/15/20 04:00 97.8 68 19 144/66 (92) 96 01/15/20 00:00 59 01/15/20 00:00 97.3 59 19 140/64 (89) 94 01/14/20 21:06 74 139/63 01/14/20 21:00 Room Air 01/14/20 20:00 98.7 74 19 139/63 (88) 97 01/14/20 20:00 74 01/14/20 18:13 69 01/14/20 16:00 98.2 66 18 142/66 (91) 95 Intake and Output 01/15/20 01/16/20 19:00 07:00 Intake Total 870 ml 120 ml Output Total 600 ml Balance 270 ml 120 ml Intake Oral 870 ml 120 ml Output Urine Total 600 ml # Voids 3 Labs Test 01/13/20 18:30 01/14/20 06:11 01/15/20 05:49 Hepatitis A IgM Antibody Negative (Negative) Hepatitis B Surface Antigen Negative (Negative) Hepatitis B Core IgM Antibody Negative (Negative) Hepatitis C Antibody <0.1 s/co ratio Sodium Level 141 MMOL/L (136-145) 138 MMOL/L (136-145) Potassium Level 4.4 MMOL/L (3.5-5.1) 3.8 MMOL/L (3.5-5.1) Chloride Level 104 MMOL/L (98-107) 102 MMOL/L (98-107) Carbon Dioxide Level 24 MMOL/L (21-32) 26 MMOL/L (21-32) Anion Gap 13 mmol/L (5-15) 10 mmol/L (5-15) Blood Urea Nitrogen 30 mg/dL (7-18) 21 mg/dL (7-18) Creatinine 0.9 MG/DL (0.55-1.30) 0.9 MG/DL (0.55-1.30) Estimat Glomerular Filtration Rate > 60 mL/min (>60) > 60 mL/min (>60) Glucose Level 85 MG/DL (74-106) 85 MG/DL (74-106) Calcium Level 8.8 MG/DL (8.5-10.1) 8.9 MG/DL (8.5-10.1) Total Bilirubin 0.9 MG/DL (0.2-1.0) 0.8 MG/DL (0.2-1.0) Aspartate Amino Transf (AST/SGOT) 39 U/L (15-37) 28 U/L (15-37) Alanine Aminotransferase (ALT/SGPT) 23 U/L (12-78) 20 U/L (12-78) Alkaline Phosphatase 62 U/L (46-116) 59 U/L (46-116) Total Protein 6.3 G/DL (6.4-8.2) 6.6 G/DL (6.4-8.2) Albumin 2.6 G/DL (3.4-5.0) 2.3 G/DL (3.4-5.0) Globulin 3.7 g/dL 4.3 g/dL Albumin/Globulin Ratio 0.7 (1.0-2.7) 0.5 (1.0-2.7) White Blood Count 5.8 K/UL (4.8-10.8) Red Blood Count 3.46 M/UL (4.20-5.40) Hemoglobin 11.0 G/DL (12.0-16.0) Hematocrit 31.8 % (37.0-47.0) Mean Corpuscular Volume 92 FL (80-99) Mean Corpuscular Hemoglobin 31.9 PG (27.0-31.0) Mean Corpuscular Hemoglobin Concent 34.7 G/DL (32.0-36.0) Red Cell Distribution Width 13.8 % (11.6-14.8) Platelet Count 132 K/UL (150-450) Mean Platelet Volume 6.5 FL (6.5-10.1) Neutrophils (%) (Auto) 73.6 % (45.0-75.0) Lymphocytes (%) (Auto) 11.3 % (20.0-45.0) Monocytes (%) (Auto) 13.4 % (1.0-10.0) Eosinophils (%) (Auto) 1.2 % (0.0-3.0) Basophils (%) (Auto) 0.5 % (0.0-2.0) Phosphorus Level 3.0 MG/DL (2.5-4.9) Iron Level 83 ug/dL (50-175) Total Iron Binding Capacity 150 ug/dL (250-450) Percent Iron Saturation 55 % (15-50) Unsaturated Iron Binding 67 ug/dL (112-346) Ferritin 1174 NG/ML (8-388) C-Reactive Protein, Quantitative 16.3 mg/dL (0.00-0.90) Pro-B-Type Natriuretic Peptide 1229 pg/mL (0-125) Height (Feet): 5 Height (Inches): 6.00 Weight (Pounds): 123 Objective PE: Vitals: reviewed General Appearance: NAD HEENT: normocephalic, atraumatic Respiratory/Chest: normal breath sounds bilaterally Cardiovascular/Chest: normal peripheral pulses, normal rate, no mgr Abdomen: normal bowel sounds, soft, nontender Extremities: normal range of motion Morris Mohamud MD January 16, 2020 14:07
--- NOTE | 2020-01-16 14:18 | NUR ---
P.T Note: P.T consult. received. P.T evaluation completed. Please refer to P.T evaluation for current functional status. Pt is alert, oriented x 4, pleasant and cooperative and no c/o pain. Pt presented generalized weakness and and limited ROM of bilateral shoulders and bilateral knees limiting mobility performance, independence and safety. Pt currently requires MOD A X 1 to roll and complete supine to/from sitting. Pt was able to initiate sit to stand transition however unable to fully assume upright standing despite MAX A X 1. Pt is highly motivated to get better and improve her mobility independence and willing participate in skilled P.T intervention. SNF is strongly recommended for short term rehab intervention VS home P.T at [place]. Thank you for this referral.
--- NOTE | 2020-01-16 15:37 | Infectious Diseases Prog Note ---
Assessment/Plan Problems: (1) UTI (urinary tract infection) Assessment & Plan: complicated with sepsis suspect pyelonephritis, due to E coli , will switch antibiotics to ceftriaxone and treat for two weeks, repeat blood culture to confirm clearance (2) COVID-19 ruled out Assessment & Plan: may remove from enhanced droplet isolation since PCR test was negative (3) Sepsis Assessment & Plan: suspect due to the above with pyelonephritis due to E coli , will switch to ceftriaxone for two weeks and repeat blood culture x 2 (4) Altered level of consciousness Assessment & Plan: due to the above , continue supportive care and antibiotics pending cultures Subjective Constitutional: Reports: no symptoms HEENT: Reports: no symptoms Respiratory: Reports: no symptoms Breasts: Reports: no symptoms Cardiovascular: Reports: no symptoms Gastrointestinal/Abdominal: Reports: no symptoms Genitourinary: Reports: no symptoms Neurologic: Reports: no symptoms Psychiatric: Reports: no symptoms Skin: Reports: no symptoms Endocrine: Reports: no symptoms Hematologic: Reports: no symptoms Musculoskeletal: Reports: no symptoms Allergies: Coded Allergies: PENICILLINS (Verified Allergy, Unknown, 01/12/20) Subjective she was more awake and coherent responsive well to verbal command denied any cough or shortness of breath no fever or chills Objective Vital Signs Last 24 Hour Vital Signs Date Time Temp Pulse Resp B/P (MAP) Pulse Ox O2 Delivery O2 Flow Rate FiO2 01/16/20 12:00 97.7 63 20 138/60 (86) 99 01/16/20 12:00 69 01/16/20 09:41 77 135/58 01/16/20 09:41 77 135/58 01/16/20 09:00 Room Air 01/16/20 08:00 97.9 84 18 135/58 (83) 95 01/16/20 08:00 77 01/16/20 04:00 97.9 66 18 139/66 (90) 98 01/16/20 04:00 57 01/16/20 00:00 56 01/16/20 00:00 98.2 61 19 134/60 (84) 98 01/15/20 21:14 72 149/66 01/15/20 21:00 Room Air 01/15/20 20:00 77 01/15/20 20:00 97.6 72 19 144/73 (96) 96 01/15/20 16:00 99.1 76 18 129/66 (87) 98 01/15/20 16:00 77 Height (Feet): 5 Height (Inches): 6.00 Weight (Pounds): 123 General Appearance: WD/WN, no acute distress HEENT: normocephalic, atraumatic, anicteric, mucous membranes moist, PERRL Respiratory/Chest: chest wall non-tender, lungs clear, normal breath sounds, no respiratory distress, no accessory muscle use Cardiovascular: normal peripheral pulses, normal rate, regular rhythm, no gallop/murmur, no JVD Abdomen: normal bowel sounds, soft, non tender, no organomegaly, non distended , no mass, no scars Genitourinary: normal external genitalia Extremities: no cyanosis, no clubbing Skin: no rash, no lesions, no ulcers Neurologic/Psychiatric: odd piece checker II-XII grossly normal, alert, responsive Lymphatic: no neck adenopathy, no groin adenopathy Musculoskeletal: normal muscle bulk, no effusion Current Medications Medications (Trade) Dose Ordered Sig/Paula Route PRN Reason Start Time Stop Time Status Last Admin Dose Admin Acetaminophen (Tylenol) 650 mg Q6H PRN ORAL Fever >100.5/mild pain 01/12/20 21:00 02/11/20 20:59 Albuterol/ Ipratropium (Albuterol/ Ipratropium) 3 ml Q4H PRN HHN Shortness of Breath 01/12/20 21:00 01/17/20 20:59 Amlodipine Besylate (Norvasc) 2.5 mg DAILY ORAL 01/16/20 09:00 02/15/20 08:59 01/16/20 09:41 Ceftriaxone Sodium 2 gm/ Dextrose 55 ml @ 110 mls/hr Q24H IVPB 01/15/20 18:00 01/22/20 17:59 01/15/20 17:55 Docusate Sodium (Colace) 100 mg THREE TIMES A DAY ORAL 01/13/20 09:00 02/12/20 08:59 01/16/20 12:36 Hydralazine HCl (Apresoline) 25 mg Q4H PRN ORAL Blood pressure over 160 systol 01/13/20 07:55 04/12/20 07:54 Metoprolol Tartrate (Lopressor) 25 mg Q12HR ORAL 01/13/20 12:00 04/12/20 11:59 01/16/20 09:41 Ondansetron HCl (Zofran) 4 mg Q6H PRN IVP Nausea & Vomiting 01/12/20 21:00 02/11/20 20:59 Pantoprazole (Protonix) 40 mg Q12HR ORAL 01/13/20 09:00 02/12/20 06:29 01/16/20 09:41 Kieran Franco M.D. January 16, 2020 15:37
[2020-01-16 16:00] VITALS: BP 124/65
[2020-01-16] MEDS: cefTRIAXone 2 GM in D5W 55 ML IVPB SCH (18:29)
[2020-01-16] MEDS: TIMOLOL MALEATE 0.25% RIGHT EYE SCH (18:29)
--- NOTE | 2020-01-16 19:04 | NUR ---
HAND-OFF: Report given to Roxanne Finn RN.
--- NOTE | 2020-01-16 19:50 | NUR ---
NURSE NOTES: Received report from MEHRDAD August. Pt alert and oriented x3-4, cheerful spirit and disposition, Pt is in stable condition, denies pain, no signs or symptoms of distress noted at this time. Bed in lowest position, bed alarm on, call light within reach. Pt instructed to use call light if assistance is needed; verbalized understanding. Will continue plan of care and close monitoring.
[2020-01-16 20:00] VITALS: BP 125/63
[2020-01-17] VITALS: BP 128/64
[2020-01-17 04:00] VITALS: BP 123/68
[2020-01-17 07:23] LABS: BASOPHILS % (AUTO) 0.5 % (0.0-2.0); EOSINOPHILS % (AUTO) 1.4 % (0.0-3.0); HEMATOCRIT 30.4 % (37.0-47.0); HEMOGLOBIN 10.5 G/DL (12.0-16.0); LYMPHOCYTES % (AUTO) 17.2 % (20.0-45.0); MEAN CORPUSCULAR VOLUME 91 FL (80-99); MONOCYTES % (AUTO) 12.1 % (1.0-10.0); NEUTROPHILS % (AUTO) 68.8 % (45.0-75.0); PLATELET COUNT 176 K/UL (150-450); RED BLOOD COUNT 3.35 M/UL (4.20-5.40); RED CELL DISTRIBUTION WIDTH 13.5 % (11.6-14.8)
[2020-01-17 07:30] LABS: ALANINE AMINOTRANSFERASE 15 U/L (12-78); ALBUMIN 2.3 G/DL (3.4-5.0); ALBUMIN/GLOBULIN RATIO 0.6 (1.0-2.7); ALKALINE PHOSPHATASE 56 U/L (46-116); ANION GAP 10 mmol/L (5-15); ASPARTATE AMINO TRANSFERASE 18 U/L (15-37); BILIRUBIN,TOTAL 0.5 MG/DL (0.2-1.0); BLOOD UREA NITROGEN 18 mg/dL (7-18); CALCIUM 8.9 MG/DL (8.5-10.1); CARBON DIOXIDE 27 MMOL/L (21-32); CHLORIDE 105 MMOL/L (98-107); CREATININE 0.9 MG/DL (0.55-1.30); PHOSPHORUS 3.4 MG/DL (2.5-4.9); POTASSIUM 3.7 MMOL/L (3.5-5.1); SODIUM 142 MMOL/L (136-145)
--- NOTE | 2020-01-17 07:58 | NUR ---
NURSE NOTES: Received report from MEHRDAD Oliveira. Pt alert and oriented x3, in stable condition, denies pain, no signs or symptoms of distress noted at this time. Bed is in lowest position, bed alarm is on, call light within reach. IV is intact and patent, SL. Will continue with the plan of care.
[2020-01-17 08:00] VITALS: BP 124/60
[2020-01-17] MEDS: Docusate 100mg cap ORAL SCH ×3 (09:07→18:26)
[2020-01-17] MEDS: TIMOLOL MALEATE 0.25% RIGHT EYE SCH (09:07)
--- NOTE | 2020-01-17 09:14 | NUR ---
RD ASSESSMENT & RECOMMENDATIONS SEE CARE ACTIVITY FOR COMPLETE ASSESSMENT DAILY ESTIMATED NEEDS: Needs based on sepsis 66.1kg 25-30 kcals/kg total kcals 1-2 g protein/kg 66-132 g total protein 25-30 mL/kg total fluid mLs NUTRITION DIAGNOSIS: Altered nutrition related lab values r/t clinical status as evidenced by low Mg (1.6), elev BNP(1229). CURRENT DIET: Low Na ms chopped PO DIET RECOMMENDATIONS: Regular liberalized diet / texture per [employer] ADDITIONAL RECOMMENDATIONS: 1) Pt unable to stand for weight-> rec to recalibrate bed scale for CBW -> EMR wt 123 lbs -> Bed wt 145 lbs 2) [employer] eval for texture, possible upgrade from chopped 3) Ensure 1 bottle daily. Monitor BG, need for Glucerna
--- NOTE | 2020-01-17 10:47 | Hematology/Onc Progress Note ---
Assessment/Plan Assessment/Plan Assessment and Recs # Thrombocytopenia - potential causes multifactorial, evaluate liver and viral etiologies to begin, also could be related to underlying medications patient has received. rule out underlying infection UTI --> Hep panel and HIV ordered --> NEG --> US abd to evaluate for cirrhosis and hsm ordered --> Peripheral smear ordered to evaluate for blasts /schistocytes --> abx and other meds have been reviewed --> ok for ppx if plt >50k w/ either heparin or lovenox --> Transfuse if Plt < 20k and fever, or if Plt < 10 without fever --> plt trend: 132 -->121-->176 # Anemia of chronic disease due to underlying chronic medical issues, multifactorial v Gi bleed --> Anemia workup has been ordered, rule out gi bleed --> No evidence of hemolysis is noted, peripheral smear has been reviewed. --> Hgb goal >7. Transfuse prn. --> Epogen or iron at this time is not particularly indicated --> Medications have been reviewed --> low threshold for gi evaluation in case has occult + --> hgb 11-->10.5 # Coagulopathy likely due to infection, just ptt elev --> consider retesting prn --> vit K prn sq # Altered level of consciousness --> likely toxic metabolic # UTI --> on abx # Thoracic kyphosis # Dvt ppx scds The timing of this note does not necessarily reflect the time of the patient was seen. Greatly appreciate consultation. Subjective Allergies: Coded Allergies: PENICILLINS (Verified Allergy, Unknown, 01/12/20) Subjective 01/14 on tele, no acute events, carol ann/azithro, 01/12 jeimy duplex negative for dvt 01/15 labs noted, no bleeding, meds noted, on abx, scds in place 01/16 awake and alert, labs and meds reviewed, room air Objective Objective Current Medications Medications (Trade) Dose Ordered Sig/Puala Route PRN Reason Start Time Stop Time Status Last Admin Dose Admin Acetaminophen (Tylenol) 650 mg Q6H PRN ORAL Fever >100.5/mild pain 01/12/20 21:00 02/11/20 20:59 01/16/20 21:24 Albuterol/ Ipratropium (Albuterol/ Ipratropium) 3 ml Q4H PRN HHN Shortness of Breath 01/12/20 21:00 01/17/20 20:59 Amlodipine Besylate (Norvasc) 2.5 mg DAILY ORAL 01/16/20 09:00 02/15/20 08:59 01/17/20 09:06 Ceftriaxone Sodium 2 gm/ Dextrose 55 ml @ 110 mls/hr Q24H IVPB 01/15/20 18:00 01/22/20 17:59 01/16/20 18:29 Docusate Sodium (Colace) 100 mg THREE TIMES A DAY ORAL 01/13/20 09:00 02/12/20 08:59 01/17/20 09:07 Hydralazine HCl (Apresoline) 25 mg Q4H PRN ORAL Blood pressure over 160 systol 01/13/20 07:55 04/12/20 07:54 Metoprolol Tartrate (Lopressor) 25 mg Q12HR ORAL 01/13/20 12:00 04/12/20 11:59 01/17/20 09:06 Ondansetron HCl (Zofran) 4 mg Q6H PRN IVP Nausea & Vomiting 01/12/20 21:00 02/11/20 20:59 Pantoprazole (Protonix) 40 mg Q12HR ORAL 01/13/20 09:00 02/12/20 06:29 01/17/20 09:05 Timolol Maleate (timoloL maleate 0.25% Op Soln) 1 drop DAILY RIGHT EYE 01/16/20 18:00 02/15/20 17:59 01/17/20 09:07 Last 24 Hour Vital Signs Date Time Temp Pulse Resp B/P (MAP) Pulse Ox O2 Delivery O2 Flow Rate FiO2 01/17/20 09:06 75 124/60 01/17/20 09:06 75 124/60 01/17/20 04:00 97.8 94 18 123/68 (86) 100 01/17/20 04:00 56 01/17/20 00:00 60 01/17/20 00:00 97.8 76 18 128/64 (85) 97 01/16/20 21:54 97.7 01/16/20 21:08 75 125/63 01/16/20 21:00 Room Air 01/16/20 20:00 97.7 75 18 125/63 (83) 98 01/16/20 20:00 73 01/16/20 16:00 97.7 71 18 124/65 (84) 98 01/16/20 16:00 70 01/16/20 12:00 97.7 63 20 138/60 (86) 99 01/16/20 12:00 69 01/16/20 09:41 77 135/58 01/16/20 09:41 77 135/58 01/16/20 09:00 Room Air 01/16/20 08:00 97.9 84 18 135/58 (83) 95 01/16/20 08:00 77 01/16/20 04:00 97.9 66 18 139/66 (90) 98 01/16/20 04:00 57 01/16/20 00:00 56 01/16/20 00:00 98.2 61 19 134/60 (84) 98 01/15/20 21:14 72 149/66 01/15/20 21:00 Room Air 01/15/20 20:00 77 01/15/20 20:00 97.6 72 19 144/73 (96) 96 01/15/20 16:00 99.1 76 18 129/66 (87) 98 01/15/20 16:00 77 01/15/20 12:00 98.2 66 18 131/67 (88) 98 01/15/20 12:00 65 Intake and Output 01/16/20 01/17/20 19:00 07:00 Intake Total 300 ml Output Total 400 ml Balance 300 ml -400 ml Intake Oral 300 ml Output Urine Total 400 ml # Voids 4 Labs Test 01/15/20 05:49 01/17/20 05:30 White Blood Count 5.8 K/UL (4.8-10.8) 5.0 K/UL (4.8-10.8) Red Blood Count 3.46 M/UL (4.20-5.40) 3.35 M/UL (4.20-5.40) Hemoglobin 11.0 G/DL (12.0-16.0) 10.5 G/DL (12.0-16.0) Hematocrit 31.8 % (37.0-47.0) 30.4 % (37.0-47.0) Mean Corpuscular Volume 92 FL (80-99) 91 FL (80-99) Mean Corpuscular Hemoglobin 31.9 PG (27.0-31.0) 31.5 PG (27.0-31.0) Mean Corpuscular Hemoglobin Concent 34.7 G/DL (32.0-36.0) 34.7 G/DL (32.0-36.0) Red Cell Distribution Width 13.8 % (11.6-14.8) 13.5 % (11.6-14.8) Platelet Count 132 K/UL (150-450) 176 K/UL (150-450) Mean Platelet Volume 6.5 FL (6.5-10.1) 6.9 FL (6.5-10.1) Neutrophils (%) (Auto) 73.6 % (45.0-75.0) 68.8 % (45.0-75.0) Lymphocytes (%) (Auto) 11.3 % (20.0-45.0) 17.2 % (20.0-45.0) Monocytes (%) (Auto) 13.4 % (1.0-10.0) 12.1 % (1.0-10.0) Eosinophils (%) (Auto) 1.2 % (0.0-3.0) 1.4 % (0.0-3.0) Basophils (%) (Auto) 0.5 % (0.0-2.0) 0.5 % (0.0-2.0) Sodium Level 138 MMOL/L (136-145) 142 MMOL/L (136-145) Potassium Level 3.8 MMOL/L (3.5-5.1) 3.7 MMOL/L (3.5-5.1) Chloride Level 102 MMOL/L (98-107) 105 MMOL/L (98-107) Carbon Dioxide Level 26 MMOL/L (21-32) 27 MMOL/L (21-32) Anion Gap 10 mmol/L (5-15) 10 mmol/L (5-15) Blood Urea Nitrogen 21 mg/dL (7-18) 18 mg/dL (7-18) Creatinine 0.9 MG/DL (0.55-1.30) 0.9 MG/DL (0.55-1.30) Estimat Glomerular Filtration Rate > 60 mL/min (>60) > 60 mL/min (>60) Glucose Level 85 MG/DL (74-106) 87 MG/DL (74-106) Calcium Level 8.9 MG/DL (8.5-10.1) 8.9 MG/DL (8.5-10.1) Phosphorus Level 3.0 MG/DL (2.5-4.9) 3.4 MG/DL (2.5-4.9) Iron Level 83 ug/dL (50-175) Total Iron Binding Capacity 150 ug/dL (250-450) Percent Iron Saturation 55 % (15-50) Unsaturated Iron Binding 67 ug/dL (112-346) Ferritin 1174 NG/ML (8-388) Total Bilirubin 0.8 MG/DL (0.2-1.0) 0.5 MG/DL (0.2-1.0) Aspartate Amino Transf (AST/SGOT) 28 U/L (15-37) 18 U/L (15-37) Alanine Aminotransferase (ALT/SGPT) 20 U/L (12-78) 15 U/L (12-78) Alkaline Phosphatase 59 U/L (46-116) 56 U/L (46-116) C-Reactive Protein, Quantitative 16.3 mg/dL (0.00-0.90) 8.1 mg/dL (0.00-0.90) Pro-B-Type Natriuretic Peptide 1229 pg/mL (0-125) Total Protein 6.6 G/DL (6.4-8.2) 6.1 G/DL (6.4-8.2) Albumin 2.3 G/DL (3.4-5.0) 2.3 G/DL (3.4-5.0) Globulin 4.3 g/dL 3.8 g/dL Albumin/Globulin Ratio 0.5 (1.0-2.7) 0.6 (1.0-2.7) Magnesium Level 1.6 MG/DL (1.8-2.4) Height (Feet): 5 Height (Inches): 6.00 Weight (Pounds): 123 Objective PE: Vitals: reviewed General Appearance: NAD HEENT: normocephalic, atraumatic Respiratory/Chest: normal breath sounds bilaterally Cardiovascular/Chest: normal peripheral pulses, normal rate, no mgr Abdomen: normal bowel sounds, soft, nontender Extremities: normal range of motion Morris Mohamud MD January 17, 2020 10:47
[2020-01-17 12:00] VITALS: BP 149/61
--- NOTE | 2020-01-17 12:16 | General Progress Note ---
Assessment/Plan Status: stable Assessment/Plan: S: I am ok O: denies any chest pain or sob PHYSICAL EXAMINATION:HEAD AND NECK: Atraumatic and normocephalic. CHEST: Clear to auscultation.HEART: S1, S2. Regular rate and rhythm. ABDOMEN: Soft. No organomegaly.MUSCULOSKELETAL: No gross lateralized motor deficit. NEUROLOGIC: The patient is alert and oriented x3. LABORATORY DATA: Labs dated January 15 reviewed ASSESSMENT AND PLAN: 1. Acute metabolic encephalopathy. 2. Sepsis: Gram negative UTI. 3. Dementia. 4. Hypertension. 5. Anemia. 6. Thrombocytopenia. 7. Renal failure, age indeterminate. 9. Abnormal BNP. 10. GI and DVT prophylaxis. PLAN OF CARE: Culture-Targeted abx regiments DC heparin sc, initiate SCD instead c/w current management Subjective Allergies: Coded Allergies: PENICILLINS (Verified Allergy, Unknown, 01/12/20) Objective Last 24 Hour Vital Signs Date Time Temp Pulse Resp B/P (MAP) Pulse Ox O2 Delivery O2 Flow Rate FiO2 01/17/20 09:06 75 124/60 01/17/20 09:06 75 124/60 01/17/20 08:00 70 01/17/20 08:00 98.5 70 18 124/60 (81) 98 01/17/20 04:00 97.8 94 18 123/68 (86) 100 01/17/20 04:00 56 01/17/20 00:00 60 01/17/20 00:00 97.8 76 18 128/64 (85) 97 01/16/20 21:54 97.7 01/16/20 21:08 75 125/63 01/16/20 21:00 Room Air 01/16/20 20:00 97.7 75 18 125/63 (83) 98 01/16/20 20:00 73 01/16/20 16:00 97.7 71 18 124/65 (84) 98 01/16/20 16:00 70 Intake and Output 01/16/20 01/17/20 19:00 07:00 Intake Total 300 ml Output Total 400 ml Balance 300 ml -400 ml Intake Oral 300 ml Output Urine Total 400 ml # Voids 4 Laboratory Tests 01/17/20 05:30: White Blood Count 5.0, Red Blood Count 3.35L, Hemoglobin 10.5L, Hematocrit 30.4L , Mean Corpuscular Volume 91, Mean Corpuscular Hemoglobin 31.5H, Mean Corpuscular Hemoglobin Concent 34.7, Red Cell Distribution Width 13.5, Platelet Count 176, Mean Platelet Volume 6.9, Neutrophils (%) (Auto) 68.8, Lymphocytes (% ) (Auto) 17.2L, Monocytes (%) (Auto) 12.1H, Eosinophils (%) (Auto) 1.4, Basophils (%) (Auto) 0.5, Sodium Level 142, Potassium Level 3.7, Chloride Level 105, Carbon Dioxide Level 27, Anion Gap 10, Blood Urea Nitrogen 18, Creatinine 0.9, Estimat Glomerular Filtration Rate > 60, Glucose Level 87, Calcium Level 8.9, Phosphorus Level 3.4, Magnesium Level 1.6L, Total Bilirubin 0.5, Aspartate Amino Transf (AST/SGOT) 18, Alanine Aminotransferase (ALT/SGPT) 15, Alkaline Phosphatase 56, C-Reactive Protein, Quantitative 8.1H, Total Protein 6.1L, Albumin 2.3L, Globulin 3.8, Albumin/Globulin Ratio 0.6L Height (Feet): 5 Height (Inches): 6.00 Weight (Pounds): 123 Pina Weber MD January 17, 2020 12:15
--- NOTE | 2020-01-17 13:39 | Nephrology Progress Note ---
Assessment/Plan Problem List: (1) HONEY (acute kidney injury) Assessment: Resolved (2) Dehydration (3) UTI (urinary tract infection) (4) COVID-19 ruled out Assessment Elevated BUN/creatinine most likely dehydration UTI Encephalopathy which most likely toxic metabolic Rule out COVID 19 infection, Patient has elevated ferritin and LDH and lactate Plan Stable- Today's lab checked Stop IV fluid Monitor renal parameters, at this time serum creatinine normalized Per ID advice Per orders Subjective ROS Limited/Unobtainable: No Constitutional: Reports: malaise Objective Objective Last 24 Hour Vital Signs Date Time Temp Pulse Resp B/P (MAP) Pulse Ox O2 Delivery O2 Flow Rate FiO2 01/17/20 12:00 98.7 60 18 149/61 (90) 98 01/17/20 12:00 60 01/17/20 09:06 75 124/60 01/17/20 09:06 75 124/60 01/17/20 09:00 Room Air 01/17/20 08:00 70 01/17/20 08:00 98.5 70 18 124/60 (81) 98 01/17/20 04:00 97.8 94 18 123/68 (86) 100 01/17/20 04:00 56 01/17/20 00:00 60 01/17/20 00:00 97.8 76 18 128/64 (85) 97 01/16/20 21:54 97.7 01/16/20 21:08 75 125/63 01/16/20 21:00 Room Air 01/16/20 20:00 97.7 75 18 125/63 (83) 98 01/16/20 20:00 73 01/16/20 16:00 97.7 71 18 124/65 (84) 98 01/16/20 16:00 70 Intake and Output 01/16/20 01/17/20 19:00 07:00 Intake Total 300 ml Output Total 400 ml Balance 300 ml -400 ml Intake Oral 300 ml Output Urine Total 400 ml # Voids 4 Laboratory Tests 01/17/20 05:30: White Blood Count 5.0, Red Blood Count 3.35L, Hemoglobin 10.5L, Hematocrit 30.4L , Mean Corpuscular Volume 91, Mean Corpuscular Hemoglobin 31.5H, Mean Corpuscular Hemoglobin Concent 34.7, Red Cell Distribution Width 13.5, Platelet Count 176, Mean Platelet Volume 6.9, Neutrophils (%) (Auto) 68.8, Lymphocytes (% ) (Auto) 17.2L, Monocytes (%) (Auto) 12.1H, Eosinophils (%) (Auto) 1.4, Basophils (%) (Auto) 0.5, Sodium Level 142, Potassium Level 3.7, Chloride Level 105, Carbon Dioxide Level 27, Anion Gap 10, Blood Urea Nitrogen 18, Creatinine 0.9, Estimat Glomerular Filtration Rate > 60, Glucose Level 87, Calcium Level 8.9, Phosphorus Level 3.4, Magnesium Level 1.6L, Total Bilirubin 0.5, Aspartate Amino Transf (AST/SGOT) 18, Alanine Aminotransferase (ALT/SGPT) 15, Alkaline Phosphatase 56, C-Reactive Protein, Quantitative 8.1H, Total Protein 6.1L, Albumin 2.3L, Globulin 3.8, Albumin/Globulin Ratio 0.6L Height (Feet): 5 Height (Inches): 6.00 Weight (Pounds): 123 General Appearance: no apparent distress Objective No change Denis Begum MD January 17, 2020 13:39
--- NOTE | 2020-01-17 15:17 | NUR ---
CASE MANAGEMENT:REVIEW 01/17/20 SI: ACUTE METABOLIC ENCEPHALOPATHY SEPSIS... E COLI BACTEREMIA/UTICOVID 19 NOT DETECTED 97.9 74 18 136/62 95% ON RA H/H-11.0/31.8 PLT-132 BUN+21 IS: IV ROCEPHIN Q24 NORVASC PO QD LOPRESSOR PO Q12 PROTONIX PO Q12 : TELEMETRY STATUS DCP: FROM HOME PLAN: DOWN GRADE TO MED/SURG REFER TO [facility]
--- NOTE | 2020-01-17 15:29 | NUR ---
*-* DISCHARGE PLANNING *-* PATIENT HAS BEEN REFERRED BACK TO: [facility] P: [phone] F: [phone] EFAX: [phone]
--- NOTE | 2020-01-17 16:11 | NUR ---
DISCHARGE PLANNING MOVE TO LOWER LEVEL OF CARE REFERRED TO [facility] DR AGUAYO TO SPEAK WITH FAMILY ABOUT SNF PLACEMENT
--- NOTE | 2020-01-17 16:29 | Diagnostic Imaging Report ---
EXAM: ULTRASOUND US ABD Complete CLINICAL HISTORY: Reason For Exam: ABD PAIN. COMPARISON: None FINDINGS: The liver is homogeneous except for a simple cyst in the left lobe. No ductal dilatation seen. Spleen within normal limits. The gallbladder is without sludge or stone. Common bile duct measures 3 mm. Pancreas grossly unremarkable to the extent visualized. Right kidney measures 12.7 x 4.6 x 6.2 cm. Left kidney is 8.3 x 4.4 x 3.5 cm. There is a cyst in the left kidney. Trace amount of perinephric fluid noted on the right side. No hydronephrosis seen bilaterally. Bilateral ureteral jets noted. Urinary bladder volume is 244 cc. Aorta and cava are within normal limits. IMPRESSION: HEPATIC CYSTS. SMALL LEFT KIDNEY WITH A CYST. TRACE AMOUNT OF PERINEPHRIC FLUID AROUND RIGHT KIDNEY. NO HYDRONEPHROSIS BILATERALLY.
[2020-01-17] MEDS: cefTRIAXone 2 GM in D5W 55 ML IVPB SCH (18:27)
--- NOTE | 2020-01-17 18:45 | NUR ---
NURSE NOTES: Transferred patient to 3rd floor rm 302-1 per MD order. Report given to Precious CRONIN. Patients belongings acknowledged and signed by both nurses. Patient's medication given to receiving nurse. Patient is in stable condition.
[2020-01-17 18:50] VITALS: BP 160/76
--- NOTE | 2020-01-17 18:50 | NUR ---
NURSE NOTES: Patient transferred from 203-1 to 302-2, via bed on RA, in stable condition. VSS. Patient AOx3, calm. Respirations even/unlabored. Oriented patient to room and call light. Purewik set up. Bilateral SCDs on. Report received from Ant CRONIN (IV needs restart, Rocephin hanging, but needs to be started, will endorse to next RN). Bed in lowest position, call light in reach, will continue to monitor.
--- NOTE | 2020-01-17 19:17 | Cardiology Progress Note ---
Assessment/Plan Assessment/Plan 1. Dyspnea, Chest x-ray does not show an overt pulmonary edema. 2D echocardiography shows normal LV systolic function with LVEF at 65%, negative COVID-19 infection. 2. Hypertension, stage II, optimize metoprolol and amlodipine. 3. HONEY, resolved. 4. Dyslipidemia. Subjective Subjective On non-telemetry unit. No cardiac events reported. Objective Last 24 Hour Vital Signs Date Time Temp Pulse Resp B/P (MAP) Pulse Ox O2 Delivery O2 Flow Rate FiO2 01/17/20 18:50 98.4 85 18 160/76 (104) 97 01/17/20 16:00 69 01/17/20 12:00 98.7 60 18 149/61 (90) 98 01/17/20 12:00 61 01/17/20 09:06 75 124/60 01/17/20 09:06 75 124/60 01/17/20 09:00 Room Air 01/17/20 08:00 70 01/17/20 08:00 98.5 70 18 124/60 (81) 98 01/17/20 04:00 97.8 94 18 123/68 (86) 100 01/17/20 04:00 56 01/17/20 00:00 60 01/17/20 00:00 97.8 76 18 128/64 (85) 97 01/16/20 21:54 97.7 01/16/20 21:08 75 125/63 01/16/20 21:00 Room Air 01/16/20 20:00 97.7 75 18 125/63 (83) 98 01/16/20 20:00 73 Intake and Output 01/16/20 01/17/20 19:00 07:00 Intake Total 300 ml Output Total 400 ml Balance 300 ml -400 ml Intake Oral 300 ml Output Urine Total 400 ml # Voids 4 2D Echo: EF 65%, Grade I LVDD, RVSP 39 mmHg, MIld MR Laboratory Tests Test 01/17/20 05:30 White Blood Count 5.0 K/UL (4.8-10.8) Red Blood Count 3.35 M/UL (4.20-5.40) L Hemoglobin 10.5 G/DL (12.0-16.0) L Hematocrit 30.4 % (37.0-47.0) L Mean Corpuscular Volume 91 FL (80-99) Mean Corpuscular Hemoglobin 31.5 PG (27.0-31.0) H Mean Corpuscular Hemoglobin Concent 34.7 G/DL (32.0-36.0) Red Cell Distribution Width 13.5 % (11.6-14.8) Platelet Count 176 K/UL (150-450) Mean Platelet Volume 6.9 FL (6.5-10.1) Neutrophils (%) (Auto) 68.8 % (45.0-75.0) Lymphocytes (%) (Auto) 17.2 % (20.0-45.0) L Monocytes (%) (Auto) 12.1 % (1.0-10.0) H Eosinophils (%) (Auto) 1.4 % (0.0-3.0) Basophils (%) (Auto) 0.5 % (0.0-2.0) Sodium Level 142 MMOL/L (136-145) Potassium Level 3.7 MMOL/L (3.5-5.1) Chloride Level 105 MMOL/L (98-107) Carbon Dioxide Level 27 MMOL/L (21-32) Anion Gap 10 mmol/L (5-15) Blood Urea Nitrogen 18 mg/dL (7-18) Creatinine 0.9 MG/DL (0.55-1.30) Estimat Glomerular Filtration Rate > 60 mL/min (>60) Glucose Level 87 MG/DL (74-106) Calcium Level 8.9 MG/DL (8.5-10.1) Phosphorus Level 3.4 MG/DL (2.5-4.9) Magnesium Level 1.6 MG/DL (1.8-2.4) L Total Bilirubin 0.5 MG/DL (0.2-1.0) Aspartate Amino Transf (AST/SGOT) 18 U/L (15-37) Alanine Aminotransferase (ALT/SGPT) 15 U/L (12-78) Alkaline Phosphatase 56 U/L (46-116) C-Reactive Protein, Quantitative 8.1 mg/dL (0.00-0.90) H Total Protein 6.1 G/DL (6.4-8.2) L Albumin 2.3 G/DL (3.4-5.0) L Globulin 3.8 g/dL Albumin/Globulin Ratio 0.6 (1.0-2.7) L Microbiology Date/Time Source Procedure Growth Status 01/15/20 20:15 Blood Blood Culture - Preliminary NO GROWTH AFTER 24 HOURS Resulted 01/15/20 20:10 Blood Blood Culture - Preliminary NO GROWTH AFTER 24 HOURS Resulted Objective HEENT: Atraumatic and normocephalic. Anicteric. Pupils are equal, round, and reactive to light and accommodation. Extraocular muscles intact. NECK: JVP less than 5 cm. No carotid bruit. Carotid upstrokes 2+ bilaterally. CARDIOVASCULAR: Normal S1, S2. Regular rate and rhythm. No murmurs, gallops, or rubs. PMI is at fourth intercostal space in the midclavicular line. LUNGS: Clear to auscultation bilaterally. ABDOMEN: Soft, nontender, nondistended. No hepatosplenomegaly. Positive bowel sounds. EXTREMITIES: No evidence of edema, clubbing, or cyanosis. There is positive calf tenderness in both legs. Thuan Cortes MD January 17, 2020 19:17
[2020-01-17 19:18] VITALS: BP 145/69
--- NOTE | 2020-01-17 19:45 | NUR ---
HAND-OFF: Report given to Gerald CRONIN, rounds made. Patient stable. Endorsed needs IV restart and Rocephin infuse.
--- NOTE | 2020-01-17 19:50 | NUR ---
NURSE NOTES: Report received from MEHRDAD Lang. Patient in stable condition. Restarted new IV Line in the LWrist 22 gauge. Will continue to monitor.
[2020-01-17] MEDS ORDERED: Albuterol/Ipratropium 3ml neb HHN PRN (20:00)
--- NOTE | 2020-01-17 21:21 | Infectious Diseases Prog Note ---
Assessment/Plan Problems: (1) UTI (urinary tract infection) Assessment & Plan: complicated with sepsis suspect pyelonephritis, due to E coli , continue ceftriaxone for two weeks, repeat blood culture is negative on january 14 which confirm clearance . EOT 01/28/10 (2) COVID-19 ruled out Assessment & Plan: january remove from enhanced droplet isolation since PCR test was negative (3) Sepsis Assessment & Plan: suspect due to the above with pyelonephritis due to E coli , CONTINUE ceftriaxone for two weeks since repeated blood culture x 2 is negative on 01/14 (4) Altered level of consciousness Assessment & Plan: due to the above , continue supportive care and antibiotics pending cultures Subjective Constitutional: Reports: no symptoms HEENT: Reports: no symptoms Respiratory: Reports: no symptoms Breasts: Reports: no symptoms Cardiovascular: Reports: no symptoms Gastrointestinal/Abdominal: Reports: no symptoms Genitourinary: Reports: no symptoms Neurologic: Reports: no symptoms Psychiatric: Reports: no symptoms Skin: Reports: no symptoms Endocrine: Reports: no symptoms Hematologic: Reports: no symptoms Allergies: Coded Allergies: PENICILLINS (Verified Allergy, Unknown, 01/12/20) Subjective she was more awake and coherent responsive well to verbal command denied any cough or shortness of breath no fever or chills Objective Vital Signs Last 24 Hour Vital Signs Date Time Temp Pulse Resp B/P (MAP) Pulse Ox O2 Delivery O2 Flow Rate FiO2 01/17/20 19:18 98.9 69 18 145/69 (94) 98 01/17/20 18:50 98.4 85 18 160/76 (104) 97 01/17/20 16:00 69 01/17/20 12:00 98.7 60 18 149/61 (90) 98 01/17/20 12:00 61 01/17/20 09:06 75 124/60 01/17/20 09:06 75 124/60 01/17/20 09:00 Room Air 01/17/20 08:00 70 01/17/20 08:00 98.5 70 18 124/60 (81) 98 01/17/20 04:00 97.8 94 18 123/68 (86) 100 01/17/20 04:00 56 01/17/20 00:00 60 01/17/20 00:00 97.8 76 18 128/64 (85) 97 01/16/20 21:54 97.7 Height (Feet): 5 Height (Inches): 6.00 Weight (Pounds): 123 General Appearance: WD/WN, no acute distress HEENT: normocephalic, atraumatic, anicteric, mucous membranes moist, PERRL Respiratory/Chest: chest wall non-tender, lungs clear, normal breath sounds, no respiratory distress, no accessory muscle use Cardiovascular: normal peripheral pulses, normal rate, regular rhythm, no gallop/murmur, no JVD Abdomen: normal bowel sounds, soft, non tender, no organomegaly, non distended , no mass, no scars Genitourinary: normal external genitalia Extremities: no cyanosis, no clubbing Skin: no rash, no lesions Neurologic/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: 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7 G/DL (32.0-36.0) Red Cell Distribution Width 13.5 % (11.6-14.8) Platelet Count 176 K/UL (150-450) Mean Platelet Volume 6.9 FL (6.5-10.1) Neutrophils (%) (Auto) 68.8 % (45.0-75.0) Lymphocytes (%) (Auto) 17.2 % (20.0-45.0) L Monocytes (%) (Auto) 12.1 % (1.0-10.0) H Eosinophils (%) (Auto) 1.4 % (0.0-3.0) Basophils (%) (Auto) 0.5 % (0.0-2.0) Sodium Level 142 MMOL/L (136-145) Potassium Level 3.7 MMOL/L (3.5-5.1) Chloride Level 105 MMOL/L (98-107) Carbon Dioxide Level 27 MMOL/L (21-32) Anion Gap 10 mmol/L (5-15) Blood Urea Nitrogen 18 mg/dL (7-18) Creatinine 0.9 MG/DL (0.55-1.30) Estimat Glomerular Filtration Rate > 60 mL/min (>60) Glucose Level 87 MG/DL (74-106) Calcium Level 8.9 MG/DL (8.5-10.1) Phosphorus Level 3.4 MG/DL (2.5-4.9) Magnesium Level 1.6 MG/DL (1.8-2.4) L Total Bilirubin 0.5 MG/DL (0.2-1.0) Aspartate Amino Transf (AST/SGOT) 18 U/L (15-37) Alanine Aminotransferase (ALT/SGPT) 15 U/L (12-78) Alkaline Phosphatase 56 U/L (46-116) C-Reactive Protein, Quantitative 8.1 mg/dL (0.00-0.90) H Total Protein 6.1 G/DL (6.4-8.2) L Albumin 2.3 G/DL (3.4-5.0) L Globulin 3.8 g/dL Albumin/Globulin Ratio 0.6 (1.0-2.7) L Current Medications Medications (Trade) Dose Ordered Sig/Paula Route PRN Reason Start Time Stop Time Status Last Admin Dose Admin Acetaminophen (Tylenol) 650 mg Q6H PRN ORAL Fever >100.5/mild pain 01/17/20 20:00 02/11/20 19:59 Albuterol/ Ipratropium (Albuterol/ Ipratropium) 3 ml Q4H PRN HHN Shortness of Breath 01/17/20 20:00 01/20/20 19:59 Amlodipine Besylate (Norvasc) 5 mg DAILY ORAL 01/18/20 09:00 02/17/20 08:59 Ceftriaxone Sodium 2 gm/ Dextrose 55 ml @ 110 mls/hr Q24H IVPB 01/18/20 18:00 01/29/20 23:59 Docusate Sodium (Colace) 100 mg THREE TIMES A DAY ORAL 01/18/20 09:00 02/12/20 08:59 Hydralazine HCl (Apresoline) 25 mg Q4H PRN ORAL Blood pressure over 160 systol 01/17/20 20:00 04/12/20 07:54 Metoprolol Tartrate (Lopressor) 50 mg Q12HR ORAL 01/17/20 21:00 04/16/20 20:59 Ondansetron HCl (Zofran) 4 mg Q6H PRN IVP Nausea & Vomiting 01/17/20 20:00 02/11/20 19:59 Pantoprazole (Protonix) 40 mg Q12HR ORAL 01/17/20 21:00 02/12/20 06:29 Timolol Maleate (timoloL maleate 0.25% Op Soln) 1 drop DAILY RIGHT EYE 01/18/20 09:00 02/15/20 17:59 Kieran Franco M.D. January 17, 2020 21:21
[2020-01-17] MEDS: Metoprolol Tartrate 50mg tab ORAL SCH (21:37)
[2020-01-18] VITALS (7 sets, daily range): BP systolic 136–160; BP diastolic 69–76
[2020-01-18] MEDS: HydrALAZINE 25mg tab ORAL PRN (00:12)
--- NOTE | 2020-01-18 07:26 | NUR ---
NURSE NOTES: Received pt from MEHRDAD Johnson. pt was eating, no acute distress, or pain. call light w/in reach.
--- NOTE | 2020-01-18 07:27 | NUR ---
HAND-OFF: Report given to MEHRDAD Tate. Patient in stable condition.
[2020-01-18] MEDS: Docusate 100mg cap ORAL SCH ×3 (08:15→17:41)
[2020-01-18] MEDS: Metoprolol Tartrate 50mg tab ORAL SCH ×2 (08:16→21:17)
[2020-01-18] MEDS: TIMOLOL MALEATE 0.25% RIGHT EYE SCH (08:17)
--- NOTE | 2020-01-18 12:15 | Nephrology Progress Note ---
Assessment/Plan Problem List: (1) HONEY (acute kidney injury) Assessment: Resolved (2) Dehydration (3) UTI (urinary tract infection) (4) COVID-19 ruled out Assessment Elevated BUN/creatinine most likely dehydration UTI Encephalopathy which most likely toxic metabolic Rule out COVID 19 infection, Patient has elevated ferritin and LDH and lactate Plan Stable- Today's labs not done Stop IV fluid Monitor renal parameters, at this time serum creatinine normalized Per ID advice Per orders Subjective ROS Limited/Unobtainable: No Constitutional: Reports: malaise Objective Objective Last 24 Hour Vital Signs Date Time Temp Pulse Resp B/P (MAP) Pulse Ox O2 Delivery O2 Flow Rate FiO2 01/18/20 08:16 69 154/64 01/18/20 08:16 64 154/69 01/18/20 08:00 98.2 66 18 154/69 (97) 98 01/18/20 07:43 Room Air 01/18/20 06:55 67 18 154/69 (97) 01/18/20 04:00 98.6 67 18 160/75 (103) 98 01/18/20 00:12 160/72 01/18/20 00:00 98.5 65 20 160/72 (101) 98 01/17/20 21:37 78 152/76 01/17/20 21:00 Room Air 01/17/20 19:18 98.9 69 18 145/69 (94) 98 01/17/20 18:50 98.4 85 18 160/76 (104) 97 01/17/20 16:00 69 Intake and Output 01/17/20 01/18/20 19:00 07:00 Intake Total 250 ml Output Total 300 ml Balance -50 ml Intake Oral 250 ml Output Urine Total 300 ml # Voids 5 Height (Feet): 5 Height (Inches): 6.00 Weight (Pounds): 123 General Appearance: no apparent distress Objective No change Denis Begum MD January 18, 2020 12:15
--- NOTE | 2020-01-18 12:25 | General Progress Note ---
Assessment/Plan Status: stable Assessment/Plan: S: I am ok O: denies any chest pain or sob PHYSICAL EXAMINATION:HEAD AND NECK: Atraumatic and normocephalic. CHEST: Clear to auscultation.HEART: S1, S2. Regular rate and rhythm. ABDOMEN: Soft. No organomegaly.MUSCULOSKELETAL: No gross lateralized motor deficit. NEUROLOGIC: The patient is alert and oriented x3. LABORATORY DATA: Labs dated January 16 reviewed ASSESSMENT AND PLAN: 1. Acute metabolic encephalopathy. 2. Sepsis: Gram negative UTI. 3. Dementia. 4. Hypertension. 5. Anemia. 6. Thrombocytopenia. 7. Renal failure, age indeterminate. 9. Abnormal BNP. 10. GI and DVT prophylaxis. PLAN OF CARE: Culture-Targeted abx regiments DC heparin sc, initiate SCD instead c/w current management will start , Hydralazin, BP medication and will optimize Subjective Allergies: Coded Allergies: PENICILLINS (Verified Allergy, Unknown, 01/12/20) Objective Last 24 Hour Vital Signs Date Time Temp Pulse Resp B/P (MAP) Pulse Ox O2 Delivery O2 Flow Rate FiO2 01/18/20 08:16 69 154/64 01/18/20 08:16 64 154/69 01/18/20 08:00 98.2 66 18 154/69 (97) 98 01/18/20 07:43 Room Air 01/18/20 06:55 67 18 154/69 (97) 01/18/20 04:00 98.6 67 18 160/75 (103) 98 01/18/20 00:12 160/72 01/18/20 00:00 98.5 65 20 160/72 (101) 98 01/17/20 21:37 78 152/76 01/17/20 21:00 Room Air 01/17/20 19:18 98.9 69 18 145/69 (94) 98 01/17/20 18:50 98.4 85 18 160/76 (104) 97 01/17/20 16:00 69 Intake and Output 01/17/20 01/18/20 19:00 07:00 Intake Total 250 ml Output Total 300 ml Balance -50 ml Intake Oral 250 ml Output Urine Total 300 ml # Voids 5 Height (Feet): 5 Height (Inches): 6.00 Weight (Pounds): 123 Pina Weber MD January 18, 2020 12:25
[2020-01-18] MEDS: HydrALAZINE 25mg tab ORAL SCH ×2 (13:05→21:17)
[2020-01-18] MEDS: cefTRIAXone 2 GM in D5W 55 ML IVPB SCH (17:48)
--- NOTE | 2020-01-18 19:45 | NUR ---
HAND-OFF: Report given to MEHRDAD Gerardo pt is stable condition.
--- NOTE | 2020-01-18 20:04 | NUR ---
NURSE NOTES: Received patient awake, verbal, follows simple command, kept clean and dry.
--- NOTE | 2020-01-18 20:22 | Infectious Diseases Prog Note ---
Assessment/Plan Problems: (1) UTI (urinary tract infection) Assessment & Plan: complicated with sepsis suspect pyelonephritis, due to E coli , continue ceftriaxone for two weeks, repeat blood culture is negative on january 14 which confirm clearance . EOT 01/28/10 (2) COVID-19 ruled out Assessment & Plan: january remove from enhanced droplet isolation since PCR test was negative (3) Sepsis Assessment & Plan: suspect due to the above with pyelonephritis due to E coli , CONTINUE ceftriaxone for two weeks since repeated blood culture x 2 is negative on 01/14 (4) Altered level of consciousness Assessment & Plan: due to the above , continue supportive care and antibiotics pending cultures Subjective Constitutional: Reports: no symptoms HEENT: Reports: no symptoms Respiratory: Reports: no symptoms Breasts: Reports: no symptoms Cardiovascular: Reports: no symptoms Gastrointestinal/Abdominal: Reports: no symptoms Genitourinary: Reports: no symptoms Neurologic: Reports: no symptoms Psychiatric: Reports: no symptoms Skin: Reports: no symptoms Endocrine: Reports: no symptoms Hematologic: Reports: no symptoms Musculoskeletal: Reports: no symptoms Allergies: Coded Allergies: PENICILLINS (Verified Allergy, Unknown, 01/12/20) Subjective she was more awake and coherent responsive well to verbal command denied any cough or shortness of breath no fever or chills Objective Vital Signs Last 24 Hour Vital Signs Date Time Temp Pulse Resp B/P (MAP) Pulse Ox O2 Delivery O2 Flow Rate FiO2 01/18/20 20:14 Room Air 01/18/20 16:00 98.8 71 19 143/70 (94) 98 01/18/20 13:05 138/71 01/18/20 12:00 97.8 73 20 138/71 (93) 98 01/18/20 08:16 69 154/64 01/18/20 08:16 64 154/69 01/18/20 08:00 98.2 66 18 154/69 (97) 98 01/18/20 07:43 Room Air 01/18/20 06:55 67 18 154/69 (97) 01/18/20 04:00 98.6 67 18 160/75 (103) 98 01/18/20 00:12 160/72 01/18/20 00:00 98.5 65 20 160/72 (101) 98 01/17/20 21:37 78 152/76 01/17/20 21:00 Room Air Height (Feet): 5 Height (Inches): 6.00 Weight (Pounds): 123 General Appearance: WD/WN, no acute distress HEENT: normocephalic, atraumatic, anicteric, mucous membranes moist, PERRL Respiratory/Chest: chest wall non-tender, lungs clear, normal breath sounds, no respiratory distress, no accessory muscle use Cardiovascular: normal peripheral pulses, normal rate, regular rhythm, no gallop/murmur, no JVD Abdomen: normal bowel sounds, soft, non tender, no organomegaly, non distended , no mass, no scars Genitourinary: normal external genitalia Extremities: no cyanosis, no clubbing Skin: no rash, no lesions Neurologic/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: 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, alert, responsive Lymphatic: no neck adenopathy, no groin adenopathy Current Medications Medications (Trade) Dose Ordered Sig/Paula Route PRN Reason Start Time Stop Time Status Last Admin Dose Admin Acetaminophen (Tylenol) 650 mg Q6H PRN ORAL Fever >100.5/mild pain 01/17/20 20:00 02/11/20 19:59 Albuterol/ Ipratropium (Albuterol/ Ipratropium) 3 ml Q4H PRN HHN Shortness of Breath 01/17/20 20:00 01/20/20 19:59 Amlodipine Besylate (Norvasc) 5 mg DAILY ORAL 01/18/20 09:00 02/17/20 08:59 01/18/20 08:16 Ceftriaxone Sodium 2 gm/ Dextrose 55 ml @ 110 mls/hr Q24H IVPB 01/18/20 18:00 01/29/20 23:59 01/18/20 17:48 Docusate Sodium (Colace) 100 mg THREE TIMES A DAY ORAL 01/18/20 09:00 02/12/20 08:59 01/18/20 08:15 Hydralazine HCl (Apresoline) 25 mg EVERY 8 HOURS ORAL 01/18/20 14:00 04/17/20 13:59 01/18/20 13:05 Hydralazine HCl (Apresoline) 25 mg Q4H PRN ORAL Blood pressure over 160 systol 01/17/20 20:00 04/12/20 07:54 5/16/20 00:12 Metoprolol Tartrate (Lopressor) 50 mg Q12HR ORAL 01/17/20 21:00 04/16/20 20:59 01/18/20 08:16 Ondansetron HCl (Zofran) 4 mg Q6H PRN IVP Nausea & Vomiting 01/17/20 20:00 02/11/20 19:59 Pantoprazole (Protonix) 40 mg Q12HR ORAL 01/17/20 21:00 02/12/20 06:29 01/18/20 08:16 Timolol Maleate (timoloL maleate 0.25% Op Soln) 1 drop DAILY RIGHT EYE 01/18/20 09:00 02/15/20 17:59 01/18/20 08:17 Kieran Franco M.D. January 18, 2020 20:22
--- NOTE | 2020-01-18 23:40 | Cardiology Progress Note ---
Assessment/Plan Assessment/Plan 1. Dyspnea, Chest x-ray does not show an overt pulmonary edema. 2D echocardiography shows normal LV systolic function with LVEF at 65%, negative COVID-19 infection. 2. Hypertension, stage I, optimize metoprolol and amlodipine. 3. HONEY, resolved. 4. Dyslipidemia. 5. Hypomagnesemia. Keep Mg level >2.5. Subjective Subjective No cardiac events reported. Room air. Objective Last 24 Hour Vital Signs Date Time Temp Pulse Resp B/P (MAP) Pulse Ox O2 Delivery O2 Flow Rate FiO2 01/18/20 21:17 136/76 01/18/20 21:17 75 136/76 01/18/20 20:14 Room Air 01/18/20 20:00 97.9 75 17 136/76 (96) 98 01/18/20 16:00 98.8 71 19 143/70 (94) 98 01/18/20 13:05 138/71 01/18/20 12:00 97.8 73 20 138/71 (93) 98 01/18/20 08:16 69 154/64 01/18/20 08:16 64 154/69 01/18/20 08:00 98.2 66 18 154/69 (97) 98 01/18/20 07:43 Room Air 01/18/20 06:55 67 18 154/69 (97) 01/18/20 04:00 98.6 67 18 160/75 (103) 98 01/18/20 00:12 160/72 01/18/20 00:00 98.5 65 20 160/72 (101) 98 Intake and Output 01/17/20 01/18/20 19:00 07:00 Intake Total 250 ml Output Total 300 ml Balance -50 ml Intake Oral 250 ml Output Urine Total 300 ml # Voids 5 2D Echo: EF 65%, Grade I LVDD, RVSP 39 mmHg, MIld MR Objective HEENT: Atraumatic and normocephalic. Anicteric. Pupils are equal, round, and reactive to light and accommodation. Extraocular muscles intact. NECK: JVP less than 5 cm. No carotid bruit. Carotid upstrokes 2+ bilaterally. CARDIOVASCULAR: Normal S1, S2. Regular rate and rhythm. No murmurs, gallops, or rubs. PMI is at fourth intercostal space in the midclavicular line. LUNGS: Clear to auscultation bilaterally. ABDOMEN: Soft, nontender, nondistended. No hepatosplenomegaly. Positive bowel sounds. EXTREMITIES: No evidence of edema, clubbing, or cyanosis. There is positive calf tenderness in both legs. Thuan Cortes MD January 18, 2020 23:40
[2020-01-19 04:00] VITALS: BP 140/72
[2020-01-19] MEDS: HydrALAZINE 25mg tab ORAL SCH ×3 (05:14→22:31)
--- NOTE | 2020-01-19 06:57 | Hematology/Onc Progress Note ---
Assessment/Plan Assessment/Plan Assessment and Recs # Thrombocytopenia - potential causes multifactorial, evaluate liver and viral etiologies to begin, also could be related to underlying medications patient has received. rule out underlying infection UTI --> Hep panel and HIV ordered --> NEG --> US abd to evaluate for cirrhosis and hsm ordered --> Peripheral smear ordered to evaluate for blasts /schistocytes --> abx and other meds have been reviewed --> ok for ppx if plt >50k w/ either heparin or lovenox --> Transfuse if Plt < 20k and fever, or if Plt < 10 without fever --> plt trend: 132 -->121-->176 # Anemia of chronic disease due to underlying chronic medical issues, multifactorial v Gi bleed --> Anemia workup has been ordered, rule out gi bleed --> No evidence of hemolysis is noted, peripheral smear has been reviewed. --> Hgb goal >7. Transfuse prn. --> Epogen or iron at this time is not particularly indicated --> Medications have been reviewed --> low threshold for gi evaluation in case has occult + --> hgb 11-->10.5 # Coagulopathy likely due to infection, just ptt elev --> consider retesting prn --> vit K prn sq # Altered level of consciousness --> likely toxic metabolic # UTI --> on abx: cftx # Thoracic kyphosis # Dvt ppx scds The timing of this note does not necessarily reflect the time of the patient was seen. Greatly appreciate consultation. Subjective Allergies: Coded Allergies: PENICILLINS (Verified Allergy, Unknown, 01/12/20) Subjective 01/14 on tele, no acute events, carol ann/azithro, 01/12 jeimy duplex negative for dvt 01/15 labs noted, no bleeding, meds noted, on abx, scds in place 01/16 awake and alert, labs and meds reviewed, room air 01/18 med surg, no acute events, on cftx, no sob Objective Objective Current Medications Medications (Trade) Dose Ordered Sig/Paula Route PRN Reason Start Time Stop Time Status Last Admin Dose Admin Acetaminophen (Tylenol) 650 mg Q6H PRN ORAL Fever >100.5/mild pain 01/17/20 20:00 02/11/20 19:59 Albuterol/ Ipratropium (Albuterol/ Ipratropium) 3 ml Q4H PRN HHN Shortness of Breath 01/17/20 20:00 01/20/20 19:59 Amlodipine Besylate (Norvasc) 5 mg DAILY ORAL 01/18/20 09:00 02/17/20 08:59 01/18/20 08:16 Ceftriaxone Sodium 2 gm/ Dextrose 55 ml @ 110 mls/hr Q24H IVPB 01/18/20 18:00 01/29/20 23:59 01/18/20 17:48 Docusate Sodium (Colace) 100 mg THREE TIMES A DAY ORAL 01/18/20 09:00 02/12/20 08:59 01/18/20 08:15 Hydralazine HCl (Apresoline) 25 mg EVERY 8 HOURS ORAL 01/18/20 14:00 04/17/20 13:59 01/19/20 05:14 Hydralazine HCl (Apresoline) 25 mg Q4H PRN ORAL Blood pressure over 160 systol 01/17/20 20:00 04/12/20 07:54 01/18/20 00:12 Metoprolol Tartrate (Lopressor) 50 mg Q12HR ORAL 01/17/20 21:00 04/16/20 20:59 01/18/20 21:17 Ondansetron HCl (Zofran) 4 mg Q6H PRN IVP Nausea & Vomiting 01/17/20 20:00 02/11/20 19:59 Pantoprazole (Protonix) 40 mg Q12HR ORAL 01/17/20 21:00 02/12/20 06:29 01/18/20 21:17 Timolol Maleate (timoloL maleate 0.25% Op Soln) 1 drop DAILY RIGHT EYE 01/18/20 09:00 02/15/20 17:59 01/18/20 08:17 Last 24 Hour Vital Signs Date Time Temp Pulse Resp B/P (MAP) Pulse Ox O2 Delivery O2 Flow Rate FiO2 01/19/20 05:14 140/72 01/19/20 04:00 98.0 72 16 140/72 (94) 96 01/18/20 21:17 136/76 01/18/20 21:17 75 136/76 01/18/20 20:14 Room Air 01/18/20 20:00 97.9 75 17 136/76 (96) 98 01/18/20 16:00 98.8 71 19 143/70 (94) 98 01/18/20 13:05 138/71 01/18/20 12:00 97.8 73 20 138/71 (93) 98 01/18/20 08:16 69 154/64 01/18/20 08:16 64 154/69 01/18/20 08:00 98.2 66 18 154/69 (97) 98 01/18/20 07:43 Room Air 01/18/20 06:55 67 18 154/69 (97) 01/18/20 04:00 98.6 67 18 160/75 (103) 98 01/18/20 00:12 160/72 01/18/20 00:00 98.5 65 20 160/72 (101) 98 01/17/20 21:37 78 152/76 01/17/20 21:00 Room Air 01/17/20 19:18 98.9 69 18 145/69 (94) 98 01/17/20 18:50 98.4 85 18 160/76 (104) 97 01/17/20 16:00 69 01/17/20 12:00 98.7 60 18 149/61 (90) 98 01/17/20 12:00 61 01/17/20 09:06 75 124/60 01/17/20 09:06 75 124/60 01/17/20 09:00 Room Air 01/17/20 08:00 70 01/17/20 08:00 98.5 70 18 124/60 (81) 98 Intake and Output 01/18/20 01/19/20 19:00 07:00 Intake Total 320 ml Output Total 650 ml Balance -650 ml 320 ml Intake Oral 220 ml IV Total 100 ml Output Urine Total 650 ml # Voids 4 Labs Test 01/17/20 05:30 01/19/20 05:10 White Blood Count 5.0 K/UL (4.8-10.8) Red Blood Count 3.35 M/UL (4.20-5.40) Hemoglobin 10.5 G/DL (12.0-16.0) Hematocrit 30.4 % (37.0-47.0) Mean Corpuscular Volume 91 FL (80-99) Mean Corpuscular Hemoglobin 31.5 PG (27.0-31.0) Mean Corpuscular Hemoglobin Concent 34.7 G/DL (32.0-36.0) Red Cell Distribution Width 13.5 % (11.6-14.8) Platelet Count 176 K/UL (150-450) Mean Platelet Volume 6.9 FL (6.5-10.1) Neutrophils (%) (Auto) 68.8 % (45.0-75.0) Lymphocytes (%) (Auto) 17.2 % (20.0-45.0) Monocytes (%) (Auto) 12.1 % (1.0-10.0) Eosinophils (%) (Auto) 1.4 % (0.0-3.0) Basophils (%) (Auto) 0.5 % (0.0-2.0) Sodium Level 142 MMOL/L (136-145) Potassium Level 3.7 MMOL/L (3.5-5.1) Chloride Level 105 MMOL/L (98-107) Carbon Dioxide Level 27 MMOL/L (21-32) Anion Gap 10 mmol/L (5-15) Blood Urea Nitrogen 18 mg/dL (7-18) Creatinine 0.9 MG/DL (0.55-1.30) Estimat Glomerular Filtration Rate > 60 mL/min (>60) Glucose Level 87 MG/DL (74-106) Calcium Level 8.9 MG/DL (8.5-10.1) Phosphorus Level 3.4 MG/DL (2.5-4.9) Magnesium Level 1.6 MG/DL (1.8-2.4) 1.7 MG/DL (1.8-2.4) Total Bilirubin 0.5 MG/DL (0.2-1.0) Aspartate Amino Transf (AST/SGOT) 18 U/L (15-37) Alanine Aminotransferase (ALT/SGPT) 15 U/L (12-78) Alkaline Phosphatase 56 U/L (46-116) C-Reactive Protein, Quantitative 8.1 mg/dL (0.00-0.90) Total Protein 6.1 G/DL (6.4-8.2) Albumin 2.3 G/DL (3.4-5.0) Globulin 3.8 g/dL Albumin/Globulin Ratio 0.6 (1.0-2.7) Height (Feet): 5 Height (Inches): 6.00 Weight (Pounds): 123 Objective PE: Vitals: reviewed General Appearance: NAD HEENT: normocephalic, atraumatic Respiratory/Chest: normal breath sounds bilaterally Cardiovascular/Chest: normal peripheral pulses, normal rate, no mgr Abdomen: normal bowel sounds, soft, nontender Extremities: normal range of motion Morris Mohamud MD January 19, 2020 06:57
--- NOTE | 2020-01-19 07:42 | NUR ---
HAND-OFF: Report given to MEHRDAD Ríos.
[2020-01-19 08:00] VITALS: BP 145/65
--- NOTE | 2020-01-19 08:00 | NUR ---
NURSE NOTES: Received report from Nicolette RN, pt a/a/o laying in bed eating breakfast with no signs of distress or other issues at this time. Iv on the left FA gauge #22 heplock. no skin issues. call light within reach, bed in lowest position. side rales up x2. I will f/u as needed.
[2020-01-19] MEDS: Docusate 100mg cap ORAL SCH ×3 (08:40→17:41)
[2020-01-19] MEDS: Metoprolol Tartrate 50mg tab ORAL SCH ×2 (08:40→20:59)
[2020-01-19] MEDS: TIMOLOL MALEATE 0.25% RIGHT EYE SCH (08:41)
--- NOTE | 2020-01-19 11:10 | Nephrology Progress Note ---
Assessment/Plan Problem List: (1) HONEY (acute kidney injury) Assessment: Resolved (2) Dehydration (3) UTI (urinary tract infection) (4) COVID-19 ruled out Assessment Elevated BUN/creatinine most likely dehydration UTI Encephalopathy which most likely toxic metabolic Rule out COVID 19 infection, Patient has elevated ferritin and LDH and lactate Plan Oral magnesium sulfate ordered table- Check labs tomorrow Stop IV fluid Monitor renal parameters, at this time serum creatinine normalized Per ID advice Per orders Subjective ROS Limited/Unobtainable: No Constitutional: Reports: malaise Objective Objective Last 24 Hour Vital Signs Date Time Temp Pulse Resp B/P (MAP) Pulse Ox O2 Delivery O2 Flow Rate FiO2 01/19/20 08:41 66 145/65 01/19/20 08:40 66 145/65 01/19/20 08:00 98.5 66 18 145/65 (91) 98 01/19/20 05:14 140/72 01/19/20 04:00 98.0 72 16 140/72 (94) 96 01/18/20 21:17 136/76 01/18/20 21:17 75 136/76 01/18/20 20:14 Room Air 01/18/20 20:00 97.9 75 17 136/76 (96) 98 01/18/20 16:00 98.8 71 19 143/70 (94) 98 01/18/20 13:05 138/71 01/18/20 12:00 97.8 73 20 138/71 (93) 98 Intake and Output 01/18/20 01/19/20 19:00 07:00 Intake Total 320 ml Output Total 650 ml Balance -650 ml 320 ml Intake Oral 220 ml IV Total 100 ml Output Urine Total 650 ml # Voids 4 Current Medications Medications (Trade) Dose Ordered Sig/Paula Route PRN Reason Start Time Stop Time Status Last Admin Dose Admin Acetaminophen (Tylenol) 650 mg Q6H PRN ORAL Fever >100.5/mild pain 01/17/20 20:00 02/11/20 19:59 Albuterol/ Ipratropium (Albuterol/ Ipratropium) 3 ml Q4H PRN HHN Shortness of Breath 01/17/20 20:00 01/20/20 19:59 Amlodipine Besylate (Norvasc) 5 mg DAILY ORAL 01/18/20 09:00 02/17/20 08:59 01/19/20 08:41 Ceftriaxone Sodium 2 gm/ Dextrose 55 ml @ 110 mls/hr Q24H IVPB 01/18/20 18:00 01/29/20 23:59 01/18/20 17:48 Docusate Sodium (Colace) 100 mg THREE TIMES A DAY ORAL 01/18/20 09:00 02/12/20 08:59 01/19/20 08:40 Hydralazine HCl (Apresoline) 25 mg EVERY 8 HOURS ORAL 01/18/20 14:00 04/17/20 13:59 01/19/20 05:14 Hydralazine HCl (Apresoline) 25 mg Q4H PRN ORAL Blood pressure over 160 systol 01/17/20 20:00 04/12/20 07:54 01/18/20 00:12 Metoprolol Tartrate (Lopressor) 50 mg Q12HR ORAL 01/17/20 21:00 04/16/20 20:59 01/19/20 08:40 Ondansetron HCl (Zofran) 4 mg Q6H PRN IVP Nausea & Vomiting 01/17/20 20:00 02/11/20 19:59 Pantoprazole (Protonix) 40 mg Q12HR ORAL 01/17/20 21:00 02/12/20 06:29 01/19/20 08:40 Timolol Maleate (timoloL maleate 0.25% Op Soln) 1 drop DAILY RIGHT EYE 01/18/20 09:00 02/15/20 17:59 01/19/20 08:41 Laboratory Tests 01/19/20 05:10: Magnesium Level 1.7L Height (Feet): 5 Height (Inches): 6.00 Weight (Pounds): 123 General Appearance: no apparent distress Objective No change Denis Begum MD January 19, 2020 11:10
[2020-01-19 12:00] VITALS: BP 144/68
[2020-01-19] MEDS: Magnesium Oxide 400mg tab ORAL SCH ×2 (13:30→17:41)
[2020-01-19 16:00] VITALS: BP 134/72
--- NOTE | 2020-01-19 16:41 | Infectious Diseases Prog Note ---
Assessment/Plan Problems: (1) UTI (urinary tract infection) Assessment & Plan: complicated with sepsis suspect pyelonephritis, due to E coli , continue ceftriaxone for two weeks, repeat blood culture is negative on january 14 which confirm clearance . EOT 01/28/10 (2) COVID-19 ruled out Assessment & Plan: january remove from enhanced droplet isolation since PCR test was negative (3) Sepsis Assessment & Plan: suspect due to the above with pyelonephritis due to E coli , CONTINUE ceftriaxone for two weeks since repeated blood culture x 2 is negative on 01/14 (4) Altered level of consciousness Assessment & Plan: due to the above , continue supportive care and antibiotics pending cultures Subjective Allergies: Coded Allergies: PENICILLINS (Verified Allergy, Unknown, 01/12/20) Subjective she was more awake and coherent responsive well to verbal command denied any cough or shortness of breath no fever or chills Objective Vital Signs Last 24 Hour Vital Signs Date Time Temp Pulse Resp B/P (MAP) Pulse Ox O2 Delivery O2 Flow Rate FiO2 01/19/20 16:00 98.1 64 19 134/72 (92) 98 01/19/20 13:30 144/68 01/19/20 12:00 98.5 64 19 144/68 (93) 98 01/19/20 09:00 Room Air 01/19/20 08:41 66 145/65 01/19/20 08:40 66 145/65 01/19/20 08:00 98.5 66 18 145/65 (91) 98 01/19/20 05:14 140/72 01/19/20 04:00 98.0 72 16 140/72 (94) 96 01/18/20 21:17 136/76 01/18/20 21:17 75 136/76 01/18/20 20:14 Room Air 01/18/20 20:00 97.9 75 17 136/76 (96) 98 Height (Feet): 5 Height (Inches): 6.00 Weight (Pounds): 123 Laboratory Tests Test 01/19/20 05:10 Magnesium Level 1.7 MG/DL (1.8-2.4) L Current Medications Medications (Trade) Dose Ordered Sig/Paula Route PRN Reason Start Time Stop Time Status Last Admin Dose Admin Acetaminophen (Tylenol) 650 mg Q6H PRN ORAL Fever >100.5/mild pain 01/17/20 20:00 02/11/20 19:59 Albuterol/ Ipratropium (Albuterol/ Ipratropium) 3 ml Q4H PRN HHN Shortness of Breath 01/17/20 20:00 01/20/20 19:59 Amlodipine Besylate (Norvasc) 5 mg DAILY ORAL 01/18/20 09:00 02/17/20 08:59 01/19/20 08:41 Ceftriaxone Sodium 2 gm/ Dextrose 55 ml @ 110 mls/hr Q24H IVPB 01/18/20 18:00 01/29/20 23:59 01/18/20 17:48 Docusate Sodium (Colace) 100 mg THREE TIMES A DAY ORAL 01/18/20 09:00 02/12/20 08:59 01/19/20 13:30 Hydralazine HCl (Apresoline) 25 mg EVERY 8 HOURS ORAL 01/18/20 14:00 04/17/20 13:59 01/19/20 13:30 Hydralazine HCl (Apresoline) 25 mg Q4H PRN ORAL Blood pressure over 160 systol 01/17/20 20:00 04/12/20 07:54 01/18/20 00:12 Magnesium Oxide (Mag-Ox 400mg) 400 mg THREE TIMES A DAY ORAL 01/19/20 13:00 02/18/20 12:59 01/19/20 13:30 Metoprolol Tartrate (Lopressor) 50 mg Q12HR ORAL 01/17/20 21:00 04/16/20 20:59 01/19/20 08:40 Ondansetron HCl (Zofran) 4 mg Q6H PRN IVP Nausea & Vomiting 01/17/20 20:00 02/11/20 19:59 Pantoprazole (Protonix) 40 mg Q12HR ORAL 01/17/20 21:00 02/12/20 06:29 01/19/20 08:40 Timolol Maleate (timoloL maleate 0.25% Op Soln) 1 drop DAILY RIGHT EYE 01/18/20 09:00 02/15/20 17:59 01/19/20 08:41 Kieran Franco M.D. January 19, 2020 16:41
[2020-01-19] MEDS: cefTRIAXone 2 GM in D5W 55 ML IVPB SCH (17:41)
--- NOTE | 2020-01-19 19:04 | NUR ---
HAND-OFF: Report given to Gerald CRONIN, pt in stable condition. - patient REFUSED SNF placement, she stated that she wants to go home. RN stated that some one needs 24hrs supervision. patient stated that she will look for someone to care for her at home. incoming nurse is aware. - Called [facility], charge nurse stated that we need to f/u tomorrow morning.
--- NOTE | 2020-01-19 19:30 | NUR ---
HAND-OFF: Report given to MEHRDAD Carr. Patient in stable condition. In [employer]'s position. Patient stated that she does NOT want to go to SNF. However, explained to patient that she would need someone to take care of her at home. Will follow up with returned case inspector in regards to dc planning
[2020-01-19 20:00] VITALS: BP 137/66
--- NOTE | 2020-01-19 22:05 | General Progress Note ---
Assessment/Plan Status: stable Assessment/Plan: S: I am ok O: denies any chest pain or sob PHYSICAL EXAMINATION:HEAD AND NECK: Atraumatic and normocephalic. CHEST: Clear to auscultation.HEART: S1, S2. Regular rate and rhythm. ABDOMEN: Soft. No organomegaly.MUSCULOSKELETAL: No gross lateralized motor deficit. NEUROLOGIC: The patient is alert and oriented x3. LABORATORY DATA: Labs dated January 18 reviewed ASSESSMENT AND PLAN: 1. Acute metabolic encephalopathy. 2. Sepsis: Gram negative UTI. 3. Dementia. 4. Hypertension. 5. Anemia. 6. Thrombocytopenia. 7. Renal failure, age indeterminate. 9. Abnormal BNP. 10. GI and DVT prophylaxis. PLAN OF CARE: Culture-Targeted abx regiments DC heparin sc, initiate SCD instead c/w current management will start , Hydralazin, BP medication and will optimize Will Follow PT recommendation. SNIF placement Subjective Allergies: Coded Allergies: PENICILLINS (Verified Allergy, Unknown, 01/12/20) Objective Last 24 Hour Vital Signs Date Time Temp Pulse Resp B/P (MAP) Pulse Ox O2 Delivery O2 Flow Rate FiO2 01/19/20 20:59 75 137/66 01/19/20 20:00 98.4 75 17 137/66 (89) 95 01/19/20 16:00 98.1 64 19 134/72 (92) 98 01/19/20 13:30 144/68 01/19/20 12:00 98.5 64 19 144/68 (93) 98 01/19/20 09:00 Room Air 01/19/20 08:41 66 145/65 01/19/20 08:40 66 145/65 01/19/20 08:00 98.5 66 18 145/65 (91) 98 01/19/20 05:14 140/72 01/19/20 04:00 98.0 72 16 140/72 (94) 96 Intake and Output 01/18/20 01/19/20 19:00 07:00 Intake Total 320 ml Output Total 650 ml Balance -650 ml 320 ml Intake Oral 220 ml IV Total 100 ml Output Urine Total 650 ml # Voids 4 Laboratory Tests 01/19/20 05:10: Magnesium Level 1.7L Height (Feet): 5 Height (Inches): 6.00 Weight (Pounds): 123 Pina Webre MD January 19, 2020 22:05
--- NOTE | 2020-01-19 23:12 | Cardiology Progress Note ---
Assessment/Plan Assessment/Plan 1. Dyspnea, Chest x-ray does not show an overt pulmonary edema. 2D echocardiography shows normal LV systolic function with LVEF at 65%, negative COVID-19 infection. 2. Hypertension, stage I, optimize metoprolol and amlodipine. 3. HONEY, resolved. 4. Dyslipidemia. 5. Hypomagnesemia. Keep Mg level >2.5. Subjective Subjective No cardiac events reported. Objective Last 24 Hour Vital Signs Date Time Temp Pulse Resp B/P (MAP) Pulse Ox O2 Delivery O2 Flow Rate FiO2 01/19/20 22:31 137/66 01/19/20 21:29 98.4 01/19/20 21:00 Room Air 01/19/20 20:59 75 137/66 01/19/20 20:00 98.4 75 17 137/66 (89) 95 01/19/20 16:00 98.1 64 19 134/72 (92) 98 01/19/20 13:30 144/68 01/19/20 12:00 98.5 64 19 144/68 (93) 98 01/19/20 09:00 Room Air 01/19/20 08:41 66 145/65 01/19/20 08:40 66 145/65 01/19/20 08:00 98.5 66 18 145/65 (91) 98 01/19/20 05:14 140/72 01/19/20 04:00 98.0 72 16 140/72 (94) 96 Intake and Output 01/18/20 01/19/20 19:00 07:00 Intake Total 320 ml Output Total 650 ml Balance -650 ml 320 ml Intake Oral 220 ml IV Total 100 ml Output Urine Total 650 ml # Voids 4 2D Echo: EF 65%, Grade I LVDD, RVSP 39 mmHg, MIld MR Laboratory Tests Test 01/19/20 05:10 Magnesium Level 1.7 MG/DL (1.8-2.4) L Objective HEENT: Atraumatic and normocephalic. Anicteric. Pupils are equal, round, and reactive to light and accommodation. Extraocular muscles intact. NECK: JVP less than 5 cm. No carotid bruit. Carotid upstrokes 2+ bilaterally. CARDIOVASCULAR: Normal S1, S2. Regular rate and rhythm. No murmurs, gallops, or rubs. PMI is at fourth intercostal space in the midclavicular line. LUNGS: Clear to auscultation bilaterally. ABDOMEN: Soft, nontender, nondistended. No hepatosplenomegaly. Positive bowel sounds. EXTREMITIES: No evidence of edema, clubbing, or cyanosis. There is positive calf tenderness in both legs. Thuan Cortes MD January 19, 2020 23:12
[2020-01-20] VITALS (7 sets, daily range): BP systolic 123–146; BP diastolic 53–72
[2020-01-20] MEDS: HydrALAZINE 25mg tab ORAL SCH ×2 (05:21→13:01)
[2020-01-20 07:24] LABS: BASOPHILS % (AUTO) 0.6 % (0.0-2.0); EOSINOPHILS % (AUTO) 0.9 % (0.0-3.0); HEMATOCRIT 30.5 % (37.0-47.0); HEMOGLOBIN 10.4 G/DL (12.0-16.0); LYMPHOCYTES % (AUTO) 15.6 % (20.0-45.0); MEAN CORPUSCULAR VOLUME 92 FL (80-99); MONOCYTES % (AUTO) 12.6 % (1.0-10.0); NEUTROPHILS % (AUTO) 70.2 % (45.0-75.0); PLATELET COUNT 264 K/UL (150-450); RED BLOOD COUNT 3.32 M/UL (4.20-5.40); RED CELL DISTRIBUTION WIDTH 13.6 % (11.6-14.8); WHITE BLOOD COUNT 5.8 K/UL (4.8-10.8)
--- NOTE | 2020-01-20 07:32 | NUR ---
HAND-OFF: Report given to MEHRDAD Simeon. Patient in stable condition.
--- NOTE | 2020-01-20 08:00 | NUR ---
NURSE NOTES: Pt awake/alert in bed, breathing easily on room air, denies SOB and denies pain at this time. Vital signs stable. Pt moving all extremities well. IV access left forearm flushed with 10 ml NS and locked. Physical therapy at bedside. Bed left in low position, side rails up x 3 and call light left near pt's hand.
[2020-01-20 08:01] LABS: ALANINE AMINOTRANSFERASE 19 U/L (12-78); ALBUMIN 2.4 G/DL (3.4-5.0); ALBUMIN/GLOBULIN RATIO 0.6 (1.0-2.7); ALKALINE PHOSPHATASE 46 U/L (46-116); ANION GAP 9 mmol/L (5-15); ASPARTATE AMINO TRANSFERASE 16 U/L (15-37); BILIRUBIN,TOTAL 0.3 MG/DL (0.2-1.0); BLOOD UREA NITROGEN 9 mg/dL (7-18); CALCIUM 8.4 MG/DL (8.5-10.1); CARBON DIOXIDE 27 MMOL/L (21-32); CHLORIDE 105 MMOL/L (98-107); CREATININE 0.7 MG/DL (0.55-1.30); SODIUM 141 MMOL/L (136-145)
[2020-01-20] MEDS: Docusate 100mg cap ORAL SCH ×3 (09:03→18:00)
[2020-01-20] MEDS: Metoprolol Tartrate 50mg tab ORAL SCH ×2 (09:03→20:27)
[2020-01-20] MEDS: TIMOLOL MALEATE 0.25% RIGHT EYE SCH (09:03)
[2020-01-20] MEDS: Magnesium Oxide 400mg tab ORAL SCH ×3 (09:03→18:00)
--- NOTE | 2020-01-20 09:54 | Nephrology Progress Note ---
Assessment/Plan Problem List: (1) HONEY (acute kidney injury) Assessment: Resolved (2) Dehydration (3) UTI (urinary tract infection) (4) COVID-19 ruled out Assessment Elevated BUN/creatinine most likely dehydration UTI Encephalopathy which most likely toxic metabolic Rule out COVID 19 infection, Patient has elevated ferritin and LDH and lactate Plan Oral magnesium sulfate ordered Lab reviewed Stop IV fluid Monitor renal parameters, at this time serum creatinine normalized Per ID advice Per orders Subjective ROS Limited/Unobtainable: No Constitutional: Reports: malaise Objective Objective Last 24 Hour Vital Signs Date Time Temp Pulse Resp B/P (MAP) Pulse Ox O2 Delivery O2 Flow Rate FiO2 01/20/20 09:03 75 123/57 01/20/20 09:03 75 123/57 01/20/20 08:40 Room Air 01/20/20 08:00 98.3 75 20 123/57 (79) 98 01/20/20 05:21 144/54 01/20/20 04:00 97.9 64 18 144/54 (84) 97 01/20/20 00:00 98.6 62 18 128/53 (78) 96 01/19/20 22:31 137/66 01/19/20 21:29 98.4 01/19/20 21:00 Room Air 01/19/20 20:59 75 137/66 01/19/20 20:00 98.4 75 17 137/66 (89) 95 01/19/20 16:00 98.1 64 19 134/72 (92) 98 01/19/20 13:30 144/68 01/19/20 12:00 98.5 64 19 144/68 (93) 98 Intake and Output 01/19/20 01/20/20 19:00 07:00 Intake Total 600 ml 400 ml Output Total 500 ml Balance 600 ml -100 ml Intake Oral 600 ml 400 ml Output Urine Total 500 ml Laboratory Tests 01/20/20 07:10: White Blood Count 5.8, Red Blood Count 3.32L, Hemoglobin 10.4L, Hematocrit 30.5L , Mean Corpuscular Volume 92, Mean Corpuscular Hemoglobin 31.4H, Mean Corpuscular Hemoglobin Concent 34.2, Red Cell Distribution Width 13.6, Platelet Count 264, Mean Platelet Volume 5.8L, Neutrophils (%) (Auto) 70.2, Lymphocytes ( %) (Auto) 15.6L, Monocytes (%) (Auto) 12.6H, Eosinophils (%) (Auto) 0.9, Basophils (%) (Auto) 0.6, Sodium Level 141, Potassium Level 4.0, Chloride Level 105, Carbon Dioxide Level 27, Anion Gap 9, Blood Urea Nitrogen 9, Creatinine 0.7 , Estimat Glomerular Filtration Rate > 60, Glucose Level 90, Calcium Level 8.4L , Phosphorus Level 4.0, Magnesium Level 1.4L, Total Bilirubin 0.3, Aspartate Amino Transf (AST/SGOT) 16, Alanine Aminotransferase (ALT/SGPT) 19, Alkaline Phosphatase 46, C-Reactive Protein, Quantitative 5.8H, Total Protein 6.2L, Albumin 2.4L, Globulin 3.8, Albumin/Globulin Ratio 0.6L Height (Feet): 5 Height (Inches): 6.00 Weight (Pounds): 123 General Appearance: no apparent distress Objective No change Denis Begum MD January 20, 2020 09:54
--- NOTE | 2020-01-20 10:44 | Hematology/Onc Progress Note ---
Assessment/Plan Assessment/Plan Assessment and Recs # Thrombocytopenia - potential causes multifactorial, evaluate liver and viral etiologies to begin, also could be related to underlying medications patient has received. rule out underlying infection UTI --> Hep panel and HIV ordered --> NEG --> US abd to evaluate for cirrhosis and hsm ordered --> Peripheral smear ordered to evaluate for blasts /schistocytes --> abx and other meds have been reviewed --> ok for ppx if plt >50k w/ either heparin or lovenox --> Transfuse if Plt < 20k and fever, or if Plt < 10 without fever --> plt trend: 132 -->121-->176->264 # Anemia of chronic disease due to underlying chronic medical issues, multifactorial v Gi bleed --> Anemia workup has been ordered, rule out gi bleed --> No evidence of hemolysis is noted, peripheral smear has been reviewed. --> Hgb goal >7. Transfuse prn. --> Epogen or iron at this time is not particularly indicated --> Medications have been reviewed --> low threshold for gi evaluation in case has occult + --> hgb 11-->10.5-->10.4 # Coagulopathy likely due to infection, just ptt elev --> consider retesting prn --> vit K prn sq # Altered level of consciousness --> likely toxic metabolic # UTI --> on abx: cftx # Thoracic kyphosis # Dvt ppx scds The timing of this note does not necessarily reflect the time of the patient was seen. Greatly appreciate consultation. Subjective Constitutional: Denies: no symptoms, chills, fever, malaise, weakness, other HEENT: Denies: no symptoms, eye pain, blurred vision, tearing, double vision, ear pain, ear discharge, nose pain, nose congestion, throat pain, throat swelling, mouth pain, mouth swelling, other Cardiovascular: Denies: no symptoms, chest pain, edema, irregular heart rate, lightheadedness, palpitations, syncope, other Genitourinary: Denies: no symptoms, burning, discharge, frequency, flank pain, hematuria, incontinence, pain, urgency, other Endocrine: Denies: no symptoms, excessive sweating, flushing, intolerance to cold, intolerance to heat, increased hunger, increased thirst, increased urine, unexplained weight gain, unexplained weight loss, other Hematologic/Lymphatic: Denies: no symptoms, anemia, easy bleeding, easy bruising, adenopathy, other Allergies: Coded Allergies: PENICILLINS (Verified Allergy, Unknown, 01/12/20) Subjective 01/14 on tele, no acute events, carol ann/azithro, 01/12 jeimy duplex negative for dvt 01/15 labs noted, no bleeding, meds noted, on abx, scds in place 01/16 awake and alert, labs and meds reviewed, room air 01/18 med surg, no acute events, on cftx, no sob 01/19 no major events overnight, labs are noted Objective Objective Current Medications Medications (Trade) Dose Ordered Sig/Paula Route PRN Reason Start Time Stop Time Status Last Admin Dose Admin Acetaminophen (Tylenol) 650 mg Q6H PRN ORAL Fever >100.5/mild pain 01/17/20 20:00 02/11/20 19:59 01/19/20 20:59 Albuterol/ Ipratropium (Albuterol/ Ipratropium) 3 ml Q4H PRN HHN Shortness of Breath 01/17/20 20:00 01/20/20 19:59 Amlodipine Besylate (Norvasc) 5 mg DAILY ORAL 01/18/20 09:00 02/17/20 08:59 01/20/20 09:03 Ceftriaxone Sodium 2 gm/ Dextrose 55 ml @ 110 mls/hr Q24H IVPB 01/18/20 18:00 01/29/20 23:59 01/19/20 17:41 Docusate Sodium (Colace) 100 mg THREE TIMES A DAY ORAL 01/18/20 09:00 02/12/20 08:59 01/20/20 09:03 Hydralazine HCl (Apresoline) 25 mg EVERY 8 HOURS ORAL 01/18/20 14:00 04/17/20 13:59 01/20/20 05:21 Hydralazine HCl (Apresoline) 25 mg Q4H PRN ORAL Blood pressure over 160 systol 01/17/20 20:00 04/12/20 07:54 01/18/20 00:12 Magnesium Oxide (Mag-Ox 400mg) 400 mg THREE TIMES A DAY ORAL 01/19/20 13:00 02/18/20 12:59 01/20/20 09:03 Magnesium Sulfate 100 ml @ 100 mls/hr Q1H IVPB 01/20/20 08:30 01/20/20 12:29 01/20/20 09:30 Metoprolol Tartrate (Lopressor) 50 mg Q12HR ORAL 01/17/20 21:00 04/16/20 20:59 01/20/20 09:03 Ondansetron HCl (Zofran) 4 mg Q6H PRN IVP Nausea & Vomiting 01/17/20 20:00 02/11/20 19:59 Pantoprazole (Protonix) 40 mg Q12HR ORAL 01/17/20 21:00 02/12/20 06:29 01/20/20 09:03 Timolol Maleate (timoloL maleate 0.25% Op Soln) 1 drop DAILY RIGHT EYE 01/18/20 09:00 02/15/20 17:59 01/20/20 09:03 Last 24 Hour Vital Signs Date Time Temp Pulse Resp B/P (MAP) Pulse Ox O2 Delivery O2 Flow Rate FiO2 01/20/20 09:03 75 123/57 01/20/20 09:03 75 123/57 01/20/20 08:40 Room Air 01/20/20 08:00 98.3 75 20 123/57 (79) 98 01/20/20 05:21 144/54 01/20/20 04:00 97.9 64 18 144/54 (84) 97 01/20/20 00:00 98.6 62 18 128/53 (78) 96 01/19/20 22:31 137/66 01/19/20 21:29 98.4 01/19/20 21:00 Room Air 01/19/20 20:59 75 137/66 01/19/20 20:00 98.4 75 17 137/66 (89) 95 01/19/20 16:00 98.1 64 19 134/72 (92) 98 01/19/20 13:30 144/68 01/19/20 12:00 98.5 64 19 144/68 (93) 98 01/19/20 09:00 Room Air 01/19/20 08:41 66 145/65 01/19/20 08:40 66 145/65 01/19/20 08:00 98.5 66 18 145/65 (91) 98 01/19/20 05:14 140/72 01/19/20 04:00 98.0 72 16 140/72 (94) 96 01/18/20 21:17 136/76 01/18/20 21:17 75 136/76 01/18/20 20:14 Room Air 01/18/20 20:00 97.9 75 17 136/76 (96) 98 01/18/20 16:00 98.8 71 19 143/70 (94) 98 01/18/20 13:05 138/71 01/18/20 12:00 97.8 73 20 138/71 (93) 98 Intake and Output 01/19/20 01/20/20 19:00 07:00 Intake Total 600 ml 400 ml Output Total 500 ml Balance 600 ml -100 ml Intake Oral 600 ml 400 ml Output Urine Total 500 ml Labs Test 01/19/20 05:10 01/20/20 07:10 Magnesium Level 1.7 MG/DL (1.8-2.4) 1.4 MG/DL (1.8-2.4) White Blood Count 5.8 K/UL (4.8-10.8) Red Blood Count 3.32 M/UL (4.20-5.40) Hemoglobin 10.4 G/DL (12.0-16.0) Hematocrit 30.5 % (37.0-47.0) Mean Corpuscular Volume 92 FL (80-99) Mean Corpuscular Hemoglobin 31.4 PG (27.0-31.0) Mean Corpuscular Hemoglobin Concent 34.2 G/DL (32.0-36.0) Red Cell Distribution Width 13.6 % (11.6-14.8) Platelet Count 264 K/UL (150-450) Mean Platelet Volume 5.8 FL (6.5-10.1) Neutrophils (%) (Auto) 70.2 % (45.0-75.0) Lymphocytes (%) (Auto) 15.6 % (20.0-45.0) Monocytes (%) (Auto) 12.6 % (1.0-10.0) Eosinophils (%) (Auto) 0.9 % (0.0-3.0) Basophils (%) (Auto) 0.6 % (0.0-2.0) Sodium Level 141 MMOL/L (136-145) Potassium Level 4.0 MMOL/L (3.5-5.1) Chloride Level 105 MMOL/L (98-107) Carbon Dioxide Level 27 MMOL/L (21-32) Anion Gap 9 mmol/L (5-15) Blood Urea Nitrogen 9 mg/dL (7-18) Creatinine 0.7 MG/DL (0.55-1.30) Estimat Glomerular Filtration Rate > 60 mL/min (>60) Glucose Level 90 MG/DL (74-106) Calcium Level 8.4 MG/DL (8.5-10.1) Phosphorus Level 4.0 MG/DL (2.5-4.9) Total Bilirubin 0.3 MG/DL (0.2-1.0) Aspartate Amino Transf (AST/SGOT) 16 U/L (15-37) Alanine Aminotransferase (ALT/SGPT) 19 U/L (12-78) Alkaline Phosphatase 46 U/L (46-116) C-Reactive Protein, Quantitative 5.8 mg/dL (0.00-0.90) Total Protein 6.2 G/DL (6.4-8.2) Albumin 2.4 G/DL (3.4-5.0) Globulin 3.8 g/dL Albumin/Globulin Ratio 0.6 (1.0-2.7) Height (Feet): 5 Height (Inches): 6.00 Weight (Pounds): 123 Objective PE: Vitals: reviewed General Appearance: NAD HEENT: normocephalic, atraumatic Respiratory/Chest: normal breath sounds bilaterally Cardiovascular/Chest: normal peripheral pulses, normal rate, no mgr Abdomen: normal bowel sounds, soft, nontender Extremities: normal range of motion Morris Mohamud MD January 20, 2020 10:44
--- NOTE | 2020-01-20 11:19 | NUR ---
*-* DISCHARGE PLANNING *-* PATIENT HAS BEEN REFERRED BACK TO: [facility] P: [phone] EFAX: [phone]
--- NOTE | 2020-01-20 11:20 | NUR ---
*-* DISCHARGE PLANNING *-* PATIENT HAS BEEN REFERRED TO: [facility] P: [phone] EFAX: [phone]
--- NOTE | 2020-01-20 13:25 | Cardiology Progress Note ---
Assessment/Plan Assessment/Plan 1. Dyspnea, Chest x-ray does not show an overt pulmonary edema. 2D echocardiography shows normal LV systolic function with LVEF at 65%, negative COVID-19 infection. 2. Hypertension, well controlled, continue metoprolol and amlodipine. 3. HONEY, resolved. 4. Dyslipidemia. 5. Hypomagnesemia. Give an additional Mg sulfate. Subjective Subjective No cardiac events reported. Objective Last 24 Hour Vital Signs Date Time Temp Pulse Resp B/P (MAP) Pulse Ox O2 Delivery O2 Flow Rate FiO2 01/20/20 13:01 140/63 01/20/20 12:00 98.1 60 18 140/63 (88) 99 01/20/20 09:03 75 123/57 01/20/20 09:03 75 123/57 01/20/20 08:40 Room Air 01/20/20 08:00 98.3 75 20 123/57 (79) 98 01/20/20 05:21 144/54 01/20/20 04:00 97.9 64 18 144/54 (84) 97 01/20/20 00:00 98.6 62 18 128/53 (78) 96 01/19/20 22:31 137/66 01/19/20 21:29 98.4 01/19/20 21:00 Room Air 01/19/20 20:59 75 137/66 01/19/20 20:00 98.4 75 17 137/66 (89) 95 01/19/20 16:00 98.1 64 19 134/72 (92) 98 01/19/20 13:30 144/68 Intake and Output 01/19/20 01/20/20 19:00 07:00 Intake Total 600 ml 400 ml Output Total 500 ml Balance 600 ml -100 ml Intake Oral 600 ml 400 ml Output Urine Total 500 ml 2D Echo: EF 65%, Grade I LVDD, RVSP 39 mmHg, MIld MR Laboratory Tests Test 01/20/20 07:10 White Blood Count 5.8 K/UL (4.8-10.8) Red Blood Count 3.32 M/UL (4.20-5.40) L Hemoglobin 10.4 G/DL (12.0-16.0) L Hematocrit 30.5 % (37.0-47.0) L Mean Corpuscular Volume 92 FL (80-99) Mean Corpuscular Hemoglobin 31.4 PG (27.0-31.0) H Mean Corpuscular Hemoglobin Concent 34.2 G/DL (32.0-36.0) Red Cell Distribution Width 13.6 % (11.6-14.8) Platelet Count 264 K/UL (150-450) Mean Platelet Volume 5.8 FL (6.5-10.1) L Neutrophils (%) (Auto) 70.2 % (45.0-75.0) Lymphocytes (%) (Auto) 15.6 % (20.0-45.0) L Monocytes (%) (Auto) 12.6 % (1.0-10.0) H Eosinophils (%) (Auto) 0.9 % (0.0-3.0) Basophils (%) (Auto) 0.6 % (0.0-2.0) Sodium Level 141 MMOL/L (136-145) Potassium Level 4.0 MMOL/L (3.5-5.1) Chloride Level 105 MMOL/L (98-107) Carbon Dioxide Level 27 MMOL/L (21-32) Anion Gap 9 mmol/L (5-15) Blood Urea Nitrogen 9 mg/dL (7-18) Creatinine 0.7 MG/DL (0.55-1.30) Estimat Glomerular Filtration Rate > 60 mL/min (>60) Glucose Level 90 MG/DL (74-106) Calcium Level 8.4 MG/DL (8.5-10.1) L Phosphorus Level 4.0 MG/DL (2.5-4.9) Magnesium Level 1.4 MG/DL (1.8-2.4) L Total Bilirubin 0.3 MG/DL (0.2-1.0) Aspartate Amino Transf (AST/SGOT) 16 U/L (15-37) Alanine Aminotransferase (ALT/SGPT) 19 U/L (12-78) Alkaline Phosphatase 46 U/L (46-116) C-Reactive Protein, Quantitative 5.8 mg/dL (0.00-0.90) H Total Protein 6.2 G/DL (6.4-8.2) L Albumin 2.4 G/DL (3.4-5.0) L Globulin 3.8 g/dL Albumin/Globulin Ratio 0.6 (1.0-2.7) L Objective HEENT: Atraumatic and normocephalic. Anicteric. Pupils are equal, round, and reactive to light and accommodation. Extraocular muscles intact. NECK: JVP less than 5 cm. No carotid bruit. Carotid upstrokes 2+ bilaterally. CARDIOVASCULAR: Normal S1, S2. Regular rate and rhythm. No murmurs, gallops, or rubs. PMI is at fourth intercostal space in the midclavicular line. LUNGS: Clear to auscultation bilaterally. ABDOMEN: Soft, nontender, nondistended. No hepatosplenomegaly. Positive bowel sounds. EXTREMITIES: No evidence of edema, clubbing, or cyanosis. There is positive calf tenderness in both legs. Thuan Cortes MD January 20, 2020 13:25
--- NOTE | 2020-01-20 13:39 | NUR ---
*-* DISCHARGE PLANNING *-* PATIENT HAS BEEN ACCEPTED TO: [facility] P: [phone] ~~~ FOR NURSE TO NURSE REPORT ROOM# HOUSE [address] AGUAYO FOR DC ORDER CM WILL F/U Addendum: 01/20/20 at 1528 by SERGIO SEALS LVN PATIENT HAS DECLINE REHAB PATIENT WISHES TO RETURN TO [facility] PATIENT ACCEPTED BACK TO [facility]
[2020-01-20] MEDS ORDERED: NITROFURANTOIN100 M2 ORAL (15:04)
[2020-01-20] MEDS ORDERED: METOPROLOL TART50 MG ORAL (15:04)
[2020-01-20] MEDS ORDERED: HYDRALAZINE HCL25 M1 ORAL (15:04)
--- NOTE | 2020-01-20 15:06 | General Progress Note ---
Assessment/Plan Status: stable Assessment/Plan: S: I am ok O: denies any chest pain or sob PHYSICAL EXAMINATION:HEAD AND NECK: Atraumatic and normocephalic. CHEST: Clear to auscultation.HEART: S1, S2. Regular rate and rhythm. ABDOMEN: Soft. No organomegaly.MUSCULOSKELETAL: No gross lateralized motor deficit. NEUROLOGIC: The patient is alert and oriented x3. LABORATORY DATA: Labs dated January 19 reviewed ASSESSMENT AND PLAN: 1. Acute metabolic encephalopathy. 2. Sepsis: Gram negative UTI. 3. Dementia. 4. Hypertension. 5. Anemia. 6. Thrombocytopenia. 7. Renal failure, age indeterminate. 9. Abnormal BNP. 10. GI and DVT prophylaxis. PLAN OF CARE: c/w current management will start , Hydralazin, BP medication and will optimize Will Follow PT recommendation. SNIF placement rec. patient refusing snif ok to FU as outpatient Subjective Allergies: Coded Allergies: PENICILLINS (Verified Allergy, Unknown, 01/12/20) Objective Last 24 Hour Vital Signs Date Time Temp Pulse Resp B/P (MAP) Pulse Ox O2 Delivery O2 Flow Rate FiO2 01/20/20 13:01 140/63 01/20/20 12:00 98.1 60 18 140/63 (88) 99 01/20/20 09:03 75 123/57 01/20/20 09:03 75 123/57 01/20/20 08:40 Room Air 01/20/20 08:00 98.3 75 20 123/57 (79) 98 01/20/20 05:21 144/54 01/20/20 04:00 97.9 64 18 144/54 (84) 97 01/20/20 00:00 98.6 62 18 128/53 (78) 96 01/19/20 22:31 137/66 01/19/20 21:29 98.4 01/19/20 21:00 Room Air 01/19/20 20:59 75 137/66 01/19/20 20:00 98.4 75 17 137/66 (89) 95 01/19/20 16:00 98.1 64 19 134/72 (92) 98 Intake and Output 01/19/20 01/20/20 19:00 07:00 Intake Total 600 ml 400 ml Output Total 500 ml Balance 600 ml -100 ml Intake Oral 600 ml 400 ml Output Urine Total 500 ml Laboratory Tests 01/20/20 07:10: White Blood Count 5.8, Red Blood Count 3.32L, Hemoglobin 10.4L, Hematocrit 30.5L , Mean Corpuscular Volume 92, Mean Corpuscular Hemoglobin 31.4H, Mean Corpuscular Hemoglobin Concent 34.2, Red Cell Distribution Width 13.6, Platelet Count 264, Mean Platelet Volume 5.8L, Neutrophils (%) (Auto) 70.2, Lymphocytes ( %) (Auto) 15.6L, Monocytes (%) (Auto) 12.6H, Eosinophils (%) (Auto) 0.9, Basophils (%) (Auto) 0.6, Sodium Level 141, Potassium Level 4.0, Chloride Level 105, Carbon Dioxide Level 27, Anion Gap 9, Blood Urea Nitrogen 9, Creatinine 0.7 , Estimat Glomerular Filtration Rate > 60, Glucose Level 90, Calcium Level 8.4L , Phosphorus Level 4.0, Magnesium Level 1.4L, Total Bilirubin 0.3, Aspartate Amino Transf (AST/SGOT) 16, Alanine Aminotransferase (ALT/SGPT) 19, Alkaline Phosphatase 46, C-Reactive Protein, Quantitative 5.8H, Total Protein 6.2L, Albumin 2.4L, Globulin 3.8, Albumin/Globulin Ratio 0.6L Height (Feet): 5 Height (Inches): 6.00 Weight (Pounds): 123 Pina Weber MD January 20, 2020 15:06
--- NOTE | 2020-01-20 15:28 | NUR ---
DISCHARGE PLANNING: PATIENT TRANSFERRINF BACK TO [facility] [address] [facility] [address] [facility] TIME @5PM BERNARDO QUEVEDO:(SISTER) [phone] ~~ WILL ALSO CHECK ON PATIENT PRESCRIPTION CALLED IN BY DR AGUAYO FACILITY AWARE OF PATIENT RETURN TO APARTMENT FACILITY STATED THAT PATIENT WILL BE CHECKED ON DAILY AND AT MEAL TIMES
--- NOTE | 2020-01-20 16:09 | NUR ---
*-* DISCHARGE PLANNING *-* PATIENT HAS BEEN ACCEPTED TO: [facility] P: [phone] ~~~ FOR NURSE TO NURSE REPORT ROOM# HOUSE [address] AGUAYO FOR DC ORDER CM WILL F/U
--- NOTE | 2020-01-20 17:26 | NUR ---
NURSE NOTES: report called into [facility], given to Yeimy. IV access removed. Pt breathing well and vital signs stable. awaiting [facility] ambulance for pickup.
[2020-01-20] MEDS: cefTRIAXone 2 GM in D5W 55 ML IVPB SCH (18:00)
--- NOTE | 2020-01-20 19:18 | Infectious Diseases Prog Note ---
Assessment/Plan Problems: (1) UTI (urinary tract infection) Assessment & Plan: complicated with sepsis suspect pyelonephritis, due to E coli , continue ceftriaxone for two weeks, repeated blood culture is negative on january 14 which confirm clearance . EOT 01/28/10 (2) COVID-19 ruled out Assessment & Plan: january remove from enhanced droplet isolation since PCR test was negative (3) Sepsis Assessment & Plan: suspect due to the above with pyelonephritis due to E coli , CONTINUE ceftriaxone for two weeks since repeated blood culture x 2 is negative on 01/14 (4) Altered level of consciousness Assessment & Plan: due to the above ,resolved , continue supportive care and antibiotics Subjective Constitutional: Reports: no symptoms HEENT: Reports: no symptoms Respiratory: Reports: no symptoms Breasts: Reports: no symptoms Cardiovascular: Reports: no symptoms Gastrointestinal/Abdominal: Reports: no symptoms Genitourinary: Reports: no symptoms Neurologic: Reports: no symptoms Psychiatric: Reports: no symptoms Skin: Reports: no symptoms Endocrine: Reports: no symptoms Hematologic: Reports: no symptoms Musculoskeletal: Reports: no symptoms Allergies: Coded Allergies: PENICILLINS (Verified Allergy, Unknown, 01/12/20) Subjective she was more awake and coherent responsive well to verbal command denied any cough or shortness of breath no fever or chills Objective Vital Signs Last 24 Hour Vital Signs Date Time Temp Pulse Resp B/P (MAP) Pulse Ox O2 Delivery O2 Flow Rate FiO2 01/20/20 16:00 98.4 65 20 136/55 (82) 97 01/20/20 13:01 140/63 01/20/20 12:00 98.1 60 18 140/63 (88) 99 01/20/20 09:03 75 123/57 01/20/20 09:03 75 123/57 01/20/20 08:40 Room Air 01/20/20 08:00 98.3 75 20 123/57 (79) 98 01/20/20 05:21 144/54 01/20/20 04:00 97.9 64 18 144/54 (84) 97 01/20/20 00:00 98.6 62 18 128/53 (78) 96 01/19/20 22:31 137/66 01/19/20 21:29 98.4 01/19/20 21:00 Room Air 01/19/20 20:59 75 137/66 01/19/20 20:00 98.4 75 17 137/66 (89) 95 Height (Feet): 5 Height (Inches): 6.00 Weight (Pounds): 123 General Appearance: WD/WN, no acute distress HEENT: normocephalic, atraumatic, anicteric, mucous membranes moist, PERRL Respiratory/Chest: chest wall non-tender, lungs clear, normal breath sounds, no respiratory distress, no accessory muscle use Cardiovascular: normal peripheral pulses, normal rate, regular rhythm, no gallop/murmur, no JVD Abdomen: normal bowel sounds, soft, non tender, no organomegaly, non distended , no mass, no scars Genitourinary: normal external genitalia Extremities: no cyanosis, no clubbing Skin: no rash Neurologic/Psychiatric: alert, responsive Lymphatic: no neck adenopathy, no groin adenopathy Laboratory Tests Test 01/20/20 07:10 White Blood Count 5.8 K/UL (4.8-10.8) Red Blood Count 3.32 M/UL (4.20-5.40) L Hemoglobin 10.4 G/DL (12.0-16.0) L Hematocrit 30.5 % (37.0-47.0) L Mean Corpuscular Volume 92 FL (80-99) Mean Corpuscular Hemoglobin 31.4 PG (27.0-31.0) H Mean Corpuscular Hemoglobin Concent 34.2 G/DL (32.0-36.0) Red Cell Distribution Width 13.6 % (11.6-14.8) Platelet Count 264 K/UL (150-450) Mean Platelet Volume 5.8 FL (6.5-10.1) L Neutrophils (%) (Auto) 70.2 % (45.0-75.0) Lymphocytes (%) (Auto) 15.6 % (20.0-45.0) L Monocytes (%) (Auto) 12.6 % (1.0-10.0) H Eosinophils (%) (Auto) 0.9 % (0.0-3.0) Basophils (%) (Auto) 0.6 % (0.0-2.0) Sodium Level 141 MMOL/L (136-145) Potassium Level 4.0 MMOL/L (3.5-5.1) Chloride Level 105 MMOL/L (98-107) Carbon Dioxide Level 27 MMOL/L (21-32) Anion Gap 9 mmol/L (5-15) Blood Urea Nitrogen 9 mg/dL (7-18) Creatinine 0.7 MG/DL (0.55-1.30) Estimat Glomerular Filtration Rate > 60 mL/min (>60) Glucose Level 90 MG/DL (74-106) Calcium Level 8.4 MG/DL (8.5-10.1) L Phosphorus Level 4.0 MG/DL (2.5-4.9) Magnesium Level 1.4 MG/DL (1.8-2.4) L Total Bilirubin 0.3 MG/DL (0.2-1.0) Aspartate Amino Transf (AST/SGOT) 16 U/L (15-37) Alanine Aminotransferase (ALT/SGPT) 19 U/L (12-78) Alkaline Phosphatase 46 U/L (46-116) C-Reactive Protein, Quantitative 5.8 mg/dL (0.00-0.90) H Total Protein 6.2 G/DL (6.4-8.2) L Albumin 2.4 G/DL (3.4-5.0) L Globulin 3.8 g/dL Albumin/Globulin Ratio 0.6 (1.0-2.7) L Current Medications Medications (Trade) Dose Ordered Sig/Paula Route PRN Reason Start Time Stop Time Status Last Admin Dose Admin Acetaminophen (Tylenol) 650 mg Q6H PRN ORAL Fever >100.5/mild pain 01/17/20 20:00 02/11/20 19:59 01/19/20 20:59 Albuterol/ Ipratropium (Albuterol/ Ipratropium) 3 ml Q4H PRN HHN Shortness of Breath 01/17/20 20:00 01/20/20 19:59 Amlodipine Besylate (Norvasc) 5 mg DAILY ORAL 01/18/20 09:00 02/17/20 08:59 01/20/20 09:03 Ceftriaxone Sodium 2 gm/ Dextrose 55 ml @ 110 mls/hr Q24H IVPB 01/18/20 18:00 01/29/20 23:59 01/19/20 17:41 Docusate Sodium (Colace) 100 mg THREE TIMES A DAY ORAL 01/18/20 09:00 02/12/20 08:59 01/20/20 09:03 Hydralazine HCl (Apresoline) 25 mg EVERY 8 HOURS ORAL 01/18/20 14:00 04/17/20 13:59 01/20/20 13:01 Hydralazine HCl (Apresoline) 25 mg Q4H PRN ORAL Blood pressure over 160 systol 01/17/20 20:00 04/12/20 07:54 01/18/20 00:12 Magnesium Oxide (Mag-Ox 400mg) 400 mg THREE TIMES A DAY ORAL 01/19/20 13:00 02/18/20 12:59 01/20/20 13:01 Metoprolol Tartrate (Lopressor) 50 mg Q12HR ORAL 01/17/20 21:00 04/16/20 20:59 01/20/20 09:03 Ondansetron HCl (Zofran) 4 mg Q6H PRN IVP Nausea & Vomiting 01/17/20 20:00 02/11/20 19:59 Pantoprazole (Protonix) 40 mg Q12HR ORAL 01/17/20 21:00 02/12/20 06:29 01/20/20 09:03 Timolol Maleate (timoloL maleate 0.25% Op Soln) 1 drop DAILY RIGHT EYE 01/18/20 09:00 02/15/20 17:59 01/20/20 09:03 Kieran Franco M.D. January 20, 2020 19:18
[2020-01-20] MEDS: HydrALAZINE 25mg tab ORAL PRN (19:28)
--- NOTE | 2020-01-20 21:00 | NUR ---
NURSE NOTES: rescheduled ambulance for transport pt to [facility], spoke to receiving nurse, Yeimy for updated report. informed Yeimy that it's essentially pt's baseline BP is at 145/70, current now BP 146/72, HR 68. pt was given Hydralazine, Metoprolol and Protonix as per PM scheduled meds. [facility] transport taken pt at 2125, pt VS stable.
--- NOTE | 2020-01-21 11:32 | Discharge Summary ---
Discharge Summary Discharge Summary _ DATE OF ADMISSION: 01/12/2020 DATE OF DISCHARGE: 01/20/2020 DISCHARGED BY: Dr. Weber REASON FOR ADMISSION: 79 years old female, resident of assisted living facility, with past medical history of hypertension, dementia, was brought for evaluation due to altered mental status. No cough was noted. She denied abdominal pain, nausea vomiting diarrhea. Upon evaluation patient was afebrile , mildly tachycardic, blood pressure was elevated 184/95. Pulse oximetry was stable . Laboratory work-up revealed no leukocytosis. BUN 33, creatinine 1.5. Lactic acid 2.1. Troponin negative. pro BNP 1982. EKG revealed sinus rhythm, no acute ischemic changes. UTI with evidence of probable urinary tract infection. Chest x-ray revealed no evidence of acute cardiopulmonary disease. CT scan of the chest showed findings consistent with emphysema. No acute pulmonary infiltrates. Thoracic aortic and coronary atherosclerosis. CT of the head showed no acute intracranial pathology. Left craniotomy with subjacent dural thickening and calcification. No significant mass-effect. Diffuse atrophy and microvascular ischemic changes. In emergency department patient received empiric antibiotics, was swabbed for COVID-19 and admitted for further management. CONSULTANTS: assistant county attorney Dr. Cortes ID specialist Dr Salvador akhtar door attendant Dr. Begum meringuer/oncologist Dr. Mohamud [facility] COURSE: Patient admitted to isolation room and started on IV fluids and empiric antibiotics. Blood culture revealed E. coli. Urine culture revealed E. coli. Antibiotic regimen optimized as per ID specialist recommendation. Repeated blood culture were negative. ID specialist recommended continue antibiotic at the facility for 2 weeks to complete the course due to initial bacteremia. SARS-CoV 2 by PCR on 01/11 was not detected. Isolation was discontinued. Venous duplex bilateral lower extremity revealed no evidence of acute DVT. DVT and GI prophylaxis provided. Renal parameters and electrolytes were closely monitored, electrolytes corrected as needed, nephrotoxic's were avoided. Acute kidney injury resolved with IV hydration. Creatinine down to 0.7, BUN down to 7. Per door attendant, acute kidney injury was most likely due to dehydration. [employer]ractor [employer] closely followed. Blood pressure was managed with beta-rebeca and calcium channel rebeca. Blood pressure stabilized. Echocardiogram revealed preserved ejection fraction of 65%. Lipid panel was stable. Supplemental oxygen provided and titrated to keep pulse oximetry above 92%. Pulmonary toilet provided. Patient remained on room air with stable pulse oximetry. Counts were closely monitored. Patient noted to have anemia and thrombocytopenia. Thrombocytopenia resolved during the course of hospitalization. HIV test was nonreactive. Hepatitis panel was negative. Abdominal ultrasound revealed no evidence of liver disease. Hemoglobin and hematocrit were closely monitored with goal to keep hemoglobin above 7. Anemia work-up was consistent with anemia of chronic disease, ferritin 1174. Prior to discharge hemoglobin 10.4, hematocrit 30.5. DVT and GI prophylaxis provided. SNF medication continued. Supportive care provided. Patient clinically stabilized and was ready for discharge. [facility] for continuation of care. FINAL DIAGNOSES: Sepsis with E. coli bacteremia E. coli UTI Suspected COVID-19- ruled out Acute metabolic encephalopathy Acute kidney injury Dehydration Anemia Thrombocytopenia -resolved Hypertension Hypertension Dyslipidemia Hypomagnesemia Dementia DISCHARGE MEDICATIONS: See Medication Reconciliation list. DISCHARGE INSTRUCTIONS: Patient was discharged to the shelter facility. Follow up with medical doctor at the facility. I have been assigned to dictate discharge summary for this account. I was not involved in the patient's management. Tiana Ewing NP January 21, 2020 11:31
== END 2020-01-20 21:25 | DRG 871 ==
LOC: EDBD 13:23 → EMR 14:00 → 2E 15:25 → EDBEDREQSVC 15:59 → EDBEDREQ 15:59 → 2E 19:12 → 3E 01-17 18:50
DX: A41.51 Sepsis due to Escherichia coli [E. coli] (principal); G92 Toxic encephalopathy; N39.0 Urinary tract infection, site not specified; N17.9 Acute kidney failure, unspecified; E86.0 Dehydration; D69.6 Thrombocytopenia, unspecified; I10 Essential (primary) hypertension; Z88.0 Allergy status to penicillin; E78.5 Hyperlipidemia, unspecified; E83.42 Hypomagnesemia; F03.90 Unspecified dementia, unspecified severity, without behavioral disturbance, psychotic disturbance, mood disturbance, and anxiety; R79.1 Abnormal coagulation profile; D63.8 Anemia in other chronic diseases classified elsewhere; M40.294 Other kyphosis, thoracic region
CPT/HCPCS: 36415; 70450; 71045; 71250; 76700; 80053; 80061; 81003; 82248; 82550; 82553; 82607; 82728; 82746; 82962; 82977; 83036; 83540; 83550; 83605; 83615; 83735; 83880; 84100; 84443; 84484; 84550; 85007; 85025; 85379; 85610; 85730; 86140; 86703; 86705; 86709; 86803; 87040; 87081; 87086; 87181; 87340; 87635; 93005; 93306; 93970; 96361; 96365; 96372; 99285; J7030; J8499